=== PATIENT | female | born 1960 | race Caucasian/White ===

== ENCOUNTER 2017-07-24 01:21 | Emergency (ER) | payer MEDICAID, SELFPAY | END 2017-07-24 03:35 | disposition home or self-care (01) | PROVIDERS: Emergency Provider Emergency Medicine; Visit Provider Emergency Medicine | DX: J40 Bronchitis, not specified as acute or chronic (principal); J44.9 Chronic obstructive pulmonary disease, unspecified; I10 Essential (primary) hypertension; F17.210 Nicotine dependence, cigarettes, uncomplicated; F31.9 Bipolar disorder, unspecified; Z79.899 Other long term (current) drug therapy; Z88.0 Allergy status to penicillin; Z88.2 Allergy status to sulfonamides; Z88.8 Allergy status to other drugs, medicaments and biological substances | CPT/HCPCS: 71020; 80053; 82550; 82553; 83605; 83880; 84484; 85025; 87040; 87070; 87077; 87184; 87186; 87205; 87486; 87581; 87633; 87798; 94640; 96374; 96375; 99285 ==

== ENCOUNTER 2017-07-24 15:31 | Emergency (ER) | payer MEDICAID, SELFPAY | END 2017-07-24 16:46 | disposition home or self-care (01) | PROVIDERS: Emergency Provider Emergency Medicine; Family Provider Emergency Medicine; Visit Provider Emergency Medicine | DX: S92.355A Nondisplaced fracture of fifth metatarsal bone, left foot, initial encounter for closed fracture (principal); W19.XXXA Unspecified fall, initial encounter; Y93.9 Activity, unspecified; Y92.9 Unspecified place or not applicable; I10 Essential (primary) hypertension; J44.9 Chronic obstructive pulmonary disease, unspecified; F31.9 Bipolar disorder, unspecified; Z79.891 Long term (current) use of opiate analgesic; Z79.899 Other long term (current) drug therapy | CPT/HCPCS: 29515; 73630; 99284 ==

== ENCOUNTER → 2017-09-20 09:53 | Outpatient (REF) | payer MEDICAID, SELFPAY ==
[2017-09-20 14:02] LABS: Amphetamine/Metha Screen,Urine Negative ng/mL (<1000); Barbiturates Screen,Urine Negative ng/mL (<200); Benzodiazepines Screen,Urine Negative ng/mL (200); Cannabinoid Screen,Urine Negative ng/mL (<50); Cocaine Screen,Urine Negative ng/g (<300); Methadone Screen,Urine Negative ng/mL (<300); Opiate Screen,Urine Positive ng/mL (<300); Phencyclidine Screen,Urine Negative ng/mL (<25)
== END ==
LOC: LAB 09:53
PROVIDERS: Visit Provider Emergency Medicine
DX: Z79.899 Other long term (current) drug therapy (principal)
CPT/HCPCS: 80305

== ENCOUNTER → 2017-09-24 10:33 | Outpatient (CLI) | payer MEDICAID, SELFPAY ==
[2017-09-24 10:53] LABS: Basophils % 0.2 % (0.1-2.0); Eosinophils # 0.2 K/mm3 (0.0-0.4); Eosinophils % 1.6 % (0.1-12.0); Hematocrit 40.1 % (37.0-47.0); Hemoglobin 12.6 g/dL (12.2-16.2); Lymphocytes # 2.1 K/mm3 (0.7-4.5); Lymphocytes % 23.5 K/mm3 (10-50); Mean Corpuscular HGB Conc 31.3 g/dL (31.8-35.4); Mean Corpuscular Hemoglobin 31.6 pg (27.0-31.2); Mean Corpuscular Volume 101.1 fl (81-99); Mean Platelet Volume 7.5 fl (7.4-10.4); Monocytes # 0.3 K/mm3 (0.1-1.0); Monocytes % 3.4 % (1.7-9.3); Neutrophils # 6.5 K/mm3 (1.8-7.8); Neutrophils % 71.4 % (37.0-80.0); Platelet Count 210 K/mm3 (142-424); Red Blood Count 3.97 M/mm3 (4.20-5.40); Red Cell Distribution Width 12.9 % (11.5-17.5); White Blood Count 9.1 K/mm3 (4.8-10.8)
[2017-09-24 11:12] LABS: Hemoglobin A1C 5.2 % (0.0-7.0)
[2017-09-24 15:08] LABS: Alanine Aminotransferase 33 U/L (12-78); Albumin Level 3.5 gm/dL (3.4-5.0); Albumin/Globulin Ratio 1.1 (1.1-1.8); Alkaline Phosphatase 87 U/L (46-116); Aspartate Amino Transferase 12 U/L (15-37); Bilirubin,Total 0.3 mg/dL (0.2-1.0); Blood Urea Nitrogen 13 mg/dL (7-18); Calcium 9.2 mg/dL (8.5-10.1); Carbon Dioxide 39 mmol/L (21.0-32.0); Chloride 92 mmol/L (98-107); Creatinine,Serum 0.41 mg/dL (0.55-1.02); Estimated Glomerular Filt Rate 160 ml/min (>60); Free T4 (Free Thyroxine) 0.91 ng/dl (0.76-1.46); GFR (African American) 193 ML/MIN (>60); Globulin 3.3 gm/dl (1.3-3.2); Glucose 119 mg/dL (74-106); Sodium 134 mmol/L (136-145); Thyroid Stimulating Hormone 1.11 uIU/ml (0.358-3.740); Total Protein,Serum 6.8 gm/dL (6.4-8.2)
[2017-09-28 06:35] LABS: Vitamin D 25 Hydroxy 16.2 ng/mL (30.0-100.0)
== END ==
PROVIDERS: PCP Emergency Medicine; Visit Provider Emergency Medicine
DX: R53.83 Other fatigue (principal); R55 Syncope and collapse; Z79.899 Other long term (current) drug therapy
CPT/HCPCS: 36415; 80053; 82652; 83036; 84439; 84443; 85025

== ENCOUNTER → 2017-10-03 10:31 | Outpatient (CLI) | payer MEDICAID, SELFPAY ==
--- NOTE | 2017-10-03 10:35 | CI_ITS ---
Cerebrovascular Exam Indications: 780.4 Dizziness and giddiness. IMPRESSIONS 1. The bilateral vertebral arteries are patent with normal antegrade flow. 2. Study suggests less than 20% stenosis involving the right internal carotid artery and the left internal carotid artery. No change from the study of 02-Sep-2016. Carotid duplex study. Complete study and Doppler flow study including spectral analysis, color and burk scale imaging. Height: Height: 162.6cm. Height: 64in. Weight: Weight: 104.3kg. Weight: 229.5lb. Body mass index: BMI: 39.5kg/m^2. Body surface area: BSA: 2.22m^2. Location: Vascular laboratory. Patient status: Outpatient. Tables: Arterial flow: + +--------+--------+ Location V sys V ed + +--------+--------+ Right CCA - proximal 114cm/s 26.7cm/s + +--------+--------+ Right CCA - distal 80.9cm/s 22.8cm/s + +--------+--------+ Right ECA 69.9cm/s -------- + +--------+--------+ Right ICA - proximal 88.8cm/s 19.6cm/s + +--------+--------+ Right ICA - mid 68.4cm/s 20.4cm/s + +--------+--------+ Right ICA - distal 91.1cm/s 32.2cm/s + +--------+--------+ Right vertebral 45.6cm/s -------- + +--------+--------+ Left CCA - proximal 91.1cm/s 17.3cm/s + +--------+--------+ Left CCA - distal 95.9cm/s 31.4cm/s + +--------+--------+ Left ECA 112cm/s -------- + +--------+--------+ Left ICA - proximal 111cm/s 31.4cm/s + +--------+--------+ Left ICA - mid 104cm/s 31.4cm/s + +--------+--------+ Left ICA - distal 144cm/s 50.3cm/s + +--------+--------+ Left vertebral 53.4cm/s -------- + +--------+--------+ Velocity ratios: + + + + + + Right, V sys Right, V ed Left, V sys Left, V ed + + + + + + Max ICA/dist CCA 1.13 1.41 1.5 1.6 + + + + + + (Report amended ) Electronically signed by: Skinny Harry [id number]
== END ==
PROVIDERS: Family Provider Emergency Medicine; PCP Emergency Medicine; Visit Provider Emergency Medicine
DX: R55 Syncope and collapse (principal); R53.83 Other fatigue; Z79.899 Other long term (current) drug therapy
CPT/HCPCS: 93880

== ENCOUNTER → 2017-10-18 11:18 | Outpatient (REF) | payer MEDICAID, SELFPAY ==
[2017-10-18 14:08] LABS: Amphetamine/Metha Screen,Urine Negative ng/mL (<1000); Barbiturates Screen,Urine Negative ng/mL (<200); Benzodiazepines Screen,Urine Negative ng/mL (200); Cannabinoid Screen,Urine Negative ng/mL (<50); Cocaine Screen,Urine Negative ng/g (<300); Methadone Screen,Urine Negative ng/mL (<300); Opiate Screen,Urine Positive ng/mL (<300); Phencyclidine Screen,Urine Negative ng/mL (<25)
== END ==
LOC: LAB 11:18
PROVIDERS: Visit Provider Emergency Medicine
DX: Z79.899 Other long term (current) drug therapy (principal)
CPT/HCPCS: 80305

== ENCOUNTER → 2017-11-16 09:59 | Outpatient (REF) | payer MEDICAID, SELFPAY ==
[2017-11-16 13:40] LABS: Amphetamine/Metha Screen,Urine Negative ng/mL (<1000); Barbiturates Screen,Urine Negative ng/mL (<200); Benzodiazepines Screen,Urine Negative ng/mL (200); Cannabinoid Screen,Urine Negative ng/mL (<50); Cocaine Screen,Urine Negative ng/g (<300); Methadone Screen,Urine Negative ng/mL (<300); Opiate Screen,Urine Positive ng/mL (<300); Phencyclidine Screen,Urine Negative ng/mL (<25)
== END ==
LOC: LAB 09:59
PROVIDERS: Visit Provider Emergency Medicine
DX: Z79.899 Other long term (current) drug therapy (principal)
CPT/HCPCS: 80305

== ENCOUNTER → 2017-12-12 09:03 | Outpatient (REF) | payer MEDICAID, SELFPAY ==
[2017-12-12 14:49] LABS: Amphetamine/Metha Screen,Urine Negative ng/mL (<1000); Barbiturates Screen,Urine Negative ng/mL (<200); Benzodiazepines Screen,Urine Negative ng/mL (200); Cannabinoid Screen,Urine Negative ng/mL (<50); Cocaine Screen,Urine Negative ng/g (<300); Methadone Screen,Urine Negative ng/mL (<300); Opiate Screen,Urine Positive ng/mL (<300); Phencyclidine Screen,Urine Negative ng/mL (<25)
== END ==
LOC: LAB 09:03
PROVIDERS: Visit Provider Emergency Medicine
DX: Z79.899 Other long term (current) drug therapy (principal)
CPT/HCPCS: 80305

== ENCOUNTER → 2018-01-16 15:44 | Outpatient (REF) | payer MEDICAID, SELFPAY ==
[2018-01-16 18:58] LABS: Amphetamine/Metha Screen,Urine Negative ng/mL (<1000); Barbiturates Screen,Urine Negative ng/mL (<200); Benzodiazepines Screen,Urine Negative ng/mL (200); Cannabinoid Screen,Urine Negative ng/mL (<50); Cocaine Screen,Urine Negative ng/g (<300); Methadone Screen,Urine Negative ng/mL (<300); Opiate Screen,Urine Positive ng/mL (<300); Phencyclidine Screen,Urine Negative ng/mL (<25)
== END ==
LOC: LAB 15:44
PROVIDERS: Visit Provider Emergency Medicine
DX: Z79.899 Other long term (current) drug therapy (principal)
CPT/HCPCS: 80305

== ENCOUNTER → 2018-02-14 10:05 | Outpatient (REF) | payer MEDICAID, SELFPAY ==
[2018-02-14 13:55] LABS: Amphetamine/Metha Screen,Urine Negative ng/mL (<1000); Barbiturates Screen,Urine Negative ng/mL (<200); Benzodiazepines Screen,Urine Negative ng/mL (<200); Cannabinoid Screen,Urine Negative ng/mL (<50); Cocaine Screen,Urine Negative ng/mL (<300); Methadone Screen,Urine Negative ng/mL (<300); Opiate Screen,Urine Positive ng/mL (<300); Phencyclidine Screen,Urine Negative ng/mL (<25)
== END ==
LOC: LAB 10:05
PROVIDERS: Visit Provider Emergency Medicine
DX: Z79.899 Other long term (current) drug therapy (principal)
CPT/HCPCS: 80305

== ENCOUNTER → 2018-03-17 09:02 | Outpatient (REF) | payer MEDICAID, SELFPAY ==
[2018-03-17 14:13] LABS: Amphetamine/Metha Screen,Urine Negative ng/mL (<1000); Barbiturates Screen,Urine Negative ng/mL (<200); Benzodiazepines Screen,Urine Negative ng/mL (<200); Cannabinoid Screen,Urine Negative ng/mL (<50); Cocaine Screen,Urine Negative ng/mL (<300); Methadone Screen,Urine Negative ng/mL (<300); Opiate Screen,Urine Positive ng/mL (<300); Phencyclidine Screen,Urine Negative ng/mL (<25)
== END ==
LOC: LAB 09:02
PROVIDERS: Visit Provider Emergency Medicine
DX: M51.36 Other intervertebral disc degeneration, lumbar region (principal)
CPT/HCPCS: 80305

== ENCOUNTER → 2018-04-17 09:15 | Outpatient (REF) | payer MEDICAID, SELFPAY ==
[2018-04-17 15:52] LABS: Amphetamine/Metha Screen,Urine Negative ng/mL (<1000); Barbiturates Screen,Urine Negative ng/mL (<200); Benzodiazepines Screen,Urine Negative ng/mL (<200); Cannabinoid Screen,Urine Negative ng/mL (<50); Cocaine Screen,Urine Negative ng/mL (<300); Methadone Screen,Urine Negative ng/mL (<300); Opiate Screen,Urine Positive ng/mL (<300); Phencyclidine Screen,Urine Negative ng/mL (<25)
== END ==
LOC: LAB 09:15
PROVIDERS: Visit Provider Nurse Practitioner Family
DX: Z79.899 Other long term (current) drug therapy (principal)
CPT/HCPCS: 80305

== ENCOUNTER → 2018-05-17 09:10 | Outpatient (REF) | payer MEDICAID, SELFPAY ==
[2018-05-17 14:24] LABS: Amphetamine/Metha Screen,Urine Negative ng/mL (<1000); Barbiturates Screen,Urine Negative ng/mL (<200); Benzodiazepines Screen,Urine Negative ng/mL (<200); Cannabinoid Screen,Urine Negative ng/mL (<50); Cocaine Screen,Urine Negative ng/mL (<300); Methadone Screen,Urine Negative ng/mL (<300); Opiate Screen,Urine Positive ng/mL (<300); Phencyclidine Screen,Urine Negative ng/mL (<25)
== END ==
LOC: LAB 09:10
PROVIDERS: Visit Provider Emergency Medicine
DX: Z79.899 Other long term (current) drug therapy (principal)
CPT/HCPCS: 80305

== ENCOUNTER → 2018-06-15 19:00 | Outpatient (CLI) | payer MEDICAID, SELFPAY ==
[2018-06-15 19:39] LABS: Amphetamine/Metha Screen,Urine Negative ng/mL (<1000); Barbiturates Screen,Urine Negative ng/mL (<200); Benzodiazepines Screen,Urine Negative ng/mL (<200); Cannabinoid Screen,Urine Negative ng/mL (<50); Cocaine Screen,Urine Negative ng/mL (<300); Methadone Screen,Urine Negative ng/mL (<300); Opiate Screen,Urine Positive ng/mL (<300); Phencyclidine Screen,Urine Negative ng/mL (<25)
== END ==
PROVIDERS: Visit Provider Emergency Medicine
DX: Z79.899 Other long term (current) drug therapy (principal)
CPT/HCPCS: 80305

== ENCOUNTER → 2018-07-12 13:41 | Outpatient (CLI) | payer MEDICAID, SELFPAY ==
[2018-07-12 15:18] LABS: Amphetamine/Metha Screen,Urine Negative ng/mL (<1000); Barbiturates Screen,Urine Negative ng/mL (<200); Benzodiazepines Screen,Urine Negative ng/mL (<200); Cannabinoid Screen,Urine Negative ng/mL (<50); Cocaine Screen,Urine Negative ng/mL (<300); Methadone Screen,Urine Negative ng/mL (<300); Opiate Screen,Urine Positive ng/mL (<300); Phencyclidine Screen,Urine Negative ng/mL (<25)
== END ==
PROVIDERS: Visit Provider Emergency Medicine
DX: Z79.899 Other long term (current) drug therapy (principal)
CPT/HCPCS: 80305

== ENCOUNTER → 2018-07-13 08:34 | Outpatient (CLI) | payer MEDICAID, SELFPAY ==
[2018-07-13 08:54] LABS: Basophils % 0.1 % (0.1-2.0); Eosinophils # 0.1 K/mm3 (0.0-0.4); Hematocrit 34.8 % (37.0-47.0); Hemoglobin 10.7 g/dL (12.2-16.2); Lymphocytes # 1.8 K/mm3 (0.7-4.5); Lymphocytes % 22.2 % (10-50); Mean Corpuscular HGB Conc 30.8 g/dL (31.8-35.4); Mean Corpuscular Hemoglobin 31.4 pg (27.0-31.2); Mean Corpuscular Volume 101.8 fl (81-99); Mean Platelet Volume 6.6 fl (7.4-10.4); Monocytes # 0.4 K/mm3 (0.1-1.0); Monocytes % 4.4 % (1.7-9.3); Neutrophils # 5.9 K/mm3 (1.8-7.8); Neutrophils % 72.3 % (37.0-80.0); Platelet Count 267 K/mm3 (142-424); Red Blood Count 3.42 M/mm3 (4.20-5.40); Red Cell Distribution Width 13.8 % (11.5-17.5); White Blood Count 8.2 K/mm3 (4.8-10.8)
[2018-07-13 09:33] LABS: Alanine Aminotransferase 49 U/L (12-78); Albumin Level 3.4 gm/dL (3.4-5.0); Alkaline Phosphatase 81 U/L (46-116); Aspartate Amino Transferase 25 U/L (15-37); Bilirubin,Total 0.3 mg/dL (0.2-1.0); Blood Urea Nitrogen 9 mg/dL (7-18); Calcium 8.9 mg/dL (8.5-10.1); Carbon Dioxide 33 mmol/L (21.0-32.0); Chloride 96 mmol/L (98-107); Cholesterol 268 mg/dL (140-200); Creatinine,Serum 0.66 mg/dL (0.55-1.02); Estimated Glomerular Filt Rate 92 ml/min (>60); Free T4 (Free Thyroxine) 1.02 ng/dl (0.76-1.46); GFR (African American) 111 ML/MIN (>60); Globulin 3.3 gm/dl (1.3-3.2); Glucose 99 mg/dL (74-106); HDL Cholesterol 90 mg/dL (29-89); LDL Cholesterol 141 mg/dL (0-130); Sodium 138 mmol/L (136-145); Thyroid Stimulating Hormone 1.84 uIU/ml (0.358-3.740); Total Protein,Serum 6.7 gm/dL (6.4-8.2); Triglycerides 183 mg/dL (30-200); VLDL Cholesterol 37 mg/dL (0-40)
== END ==
PROVIDERS: Visit Provider Emergency Medicine
DX: I10 Essential (primary) hypertension (principal)
CPT/HCPCS: 36415; 80053; 80061; 84439; 84443; 85025

== ENCOUNTER → 2018-07-14 12:06 | Outpatient (CLI) | payer MEDICAID, SELFPAY | PROVIDERS: PCP Emergency Medicine; Visit Provider Emergency Medicine | DX: I10 Essential (primary) hypertension (principal) | CPT/HCPCS: 36415 ==

== ENCOUNTER → 2018-07-20 09:49 | Outpatient (CLI) | payer MEDICAID, SELFPAY ==
[2018-07-20 10:18] VITALS: PULSE 82
== END ==
PROVIDERS: PCP Emergency Medicine; Visit Provider Emergency Medicine
DX: R06.02 Shortness of breath (principal)
CPT/HCPCS: 94060; 94640

== ENCOUNTER → 2018-08-10 07:06 | Outpatient (CLI) | payer MEDICAID, SELFPAY ==
[2018-08-10 08:20] LABS: Basophils % 0.2 % (0.1-2.0); Eosinophils # 0.1 K/mm3 (0.0-0.4); Hematocrit 35.6 % (37.0-47.0); Hemoglobin 10.9 g/dL (12.2-16.2); Lymphocytes # 1.7 K/mm3 (0.7-4.5); Lymphocytes % 22.4 % (10-50); Mean Corpuscular HGB Conc 30.6 g/dL (31.8-35.4); Mean Corpuscular Hemoglobin 31.1 pg (27.0-31.2); Mean Corpuscular Volume 101.4 fl (81-99); Mean Platelet Volume 6.8 fl (7.4-10.4); Monocytes # 0.4 K/mm3 (0.1-1.0); Monocytes % 5.2 % (1.7-9.3); Neutrophils # 5.5 K/mm3 (1.8-7.8); Neutrophils % 71.2 % (37.0-80.0); Platelet Count 237 K/mm3 (142-424); Red Blood Count 3.51 M/mm3 (4.20-5.40); White Blood Count 7.7 K/mm3 (4.8-10.8)
[2018-08-10 09:37] LABS: Alanine Aminotransferase 60 U/L (12-78); Albumin Level 3.4 gm/dL (3.4-5.0); Alkaline Phosphatase 86 U/L (46-116); Anion Gap 8.7 mEq/L (5-15); Aspartate Amino Transferase 35 U/L (15-37); Bilirubin,Total 0.4 mg/dL (0.2-1.0); Blood Urea Nitrogen 14 mg/dL (7-18); Calcium 8.9 mg/dL (8.5-10.1); Carbon Dioxide 36 mmol/L (21.0-32.0); Chloride 97 mmol/L (98-107); Chol/HDL Ratio 2.2 (1-3.5); Cholesterol 188 mg/dL (140-200); Creatinine,Serum 0.62 mg/dL (0.55-1.02); Estimated Glomerular Filt Rate 99 ml/min (>60); Ferritin 196 ng/mL (8-388); GFR (African American) 120 ML/MIN (>60); Globulin 3.3 gm/dl (1.3-3.2); Glucose 105 mg/dL (74-106); HDL Cholesterol 87 mg/dL (29-89); Iron 147 ug/dl (28-170); LDL Cholesterol 77 mg/dL (0-130); Magnesium 1.9 mg/dL (1.4-2.2); Phosphorous 4.1 mg/dL (2.4-4.9); Potassium 4.7 mmoL/L (3.5-5.1); Sodium 137 mmol/L (136-145); Thyroid Stimulating Hormone 1.28 uIU/ml (0.358-3.740); Total Protein,Serum 6.7 gm/dL (6.4-8.2); Triglycerides 119 mg/dL (30-200); VLDL Cholesterol 24 mg/dL (0-40)
[2018-08-12 11:10] LABS: Methylmalonic Acid 514 nmol/L (0-378)
[2018-08-12 18:07] LABS: Vitamin E Alpha Tocopherol 8.5 mg/L (7.0-25.1)
[2018-08-12 21:47] LABS: Folate 18.4 ng/mL (>3.0); Parathyroid Hormone Intact 46 pg/mL (15-65); Prealbumin 40 mg/dL (10-36)
[2018-08-12 21:48] LABS: Vitamin D 25 Hydroxy 41.1 ng/mL (30.0-100.0)
[2018-08-12 21:52] LABS: Vitamin A 78.7 ug/dL (20.1-62.0); Vitamin B1 100.4 nmol/L (66.5-200.0); Vitamin E Gamma Tocopherol 2.8 mg/L (0.5-5.5)
[2018-08-16 10:31] LABS: Cotinine 778.1 ng/mL (.); Nicotine 504.4 ng/mL (.)
== END ==
PROVIDERS: Visit Provider Physician Assistant
DX: I10 Essential (primary) hypertension (principal); R12 Heartburn; M54.9 Dorsalgia, unspecified; E66.01 Morbid (severe) obesity due to excess calories; Z72.0 Tobacco use
CPT/HCPCS: 36415; 80053; 80061; 80323; 82131; 82652; 82728; 82746; 83036; 83540; 83735; 83970; 84100; 84134; 84425; 84443; 84446; 84590; 85025; G0480

== ENCOUNTER → 2018-08-14 13:46 | Outpatient (CLI) | payer MEDICAID, SELFPAY ==
[2018-08-14 18:58] LABS: Amphetamine/Metha Screen,Urine Negative ng/mL (<1000); Barbiturates Screen,Urine Negative ng/mL (<200); Benzodiazepines Screen,Urine Negative ng/mL (<200); Cannabinoid Screen,Urine Negative ng/mL (<50); Cocaine Screen,Urine Negative ng/mL (<300); Methadone Screen,Urine Negative ng/mL (<300); Opiate Screen,Urine Positive ng/mL (<300); Phencyclidine Screen,Urine Negative ng/mL (<25)
== END ==
PROVIDERS: Visit Provider Emergency Medicine
DX: Z79.899 Other long term (current) drug therapy (principal)
CPT/HCPCS: 80305

== ENCOUNTER → 2018-09-05 10:14 | Outpatient (CLI) | payer MEDICAID, SELFPAY ==
--- NOTE | 2018-09-05 10:17 | XR_ITS ---
XR ankle wt bearing LT min 3V HISTORY: ITS.REASON: pain ORDERING PHYSICIAN: Vera Blancas DPM PATIENT AGE: 57 years Comparison: None FINDINGS: No fracture or dislocation. No lytic or blastic change. There is normal mineralization.. The joint spaces are well-preserved. No significant degenerative/arthritic changes. No erosive changes evident. IMPRESSION: Negative ankle, no acute finding
== END ==
PROVIDERS: PCP Emergency Medicine; Visit Provider Podiatrist
DX: M25.572 Pain in left ankle and joints of left foot (principal)
CPT/HCPCS: 73610

== ENCOUNTER → 2018-10-10 09:44 | Outpatient (CLI) | payer MEDICAID, SELFPAY ==
--- NOTE | 2018-10-10 09:47 | FL_ITS ---
FL upper GI w air HISTORY: ITS.REASON: PYLORIC ANTRAL STENEOSIS ORDERING PHYSICIAN: Sadiq Gardner PATIENT AGE: 57 years Comparison: None FINDINGS: The esophagus, stomach, and duodenum have an unremarkable appearance. There is no evidence of hiatal hernia. No ulcer or mass evident. No mucosal abnormalities apparent. There is normal peristalsis. The duodenal C-loop is nondisplaced. FLUOROSCOPY TIME : 1 minute and 15 seconds. IMPRESSION: Negative upper GI
--- NOTE | 2018-10-10 09:48 | XR_ITS ---
XR KUB HISTORY: ITS.REASON: PYLORIC ANTRAL STENOSIS ORDERING PHYSICIAN: Sadiq Gardner PATIENT AGE: 57 years COMPARISON: None FINDINGS: The bowel gas pattern is unremarkable. No obvious obstruction.. No abnormal calcifications are evident. No obvious renal or ureteral calculi.. No acute bony anomalies evident. There are multiple pelvic phleboliths. There is an old right seventh rib fracture IMPRESSION: Negative KUB, no acute finding
== END ==
PROVIDERS: PCP Emergency Medicine; Visit Provider Surgery
DX: K31.2 Hourglass stricture and stenosis of stomach (principal)
CPT/HCPCS: 74018; 74247

== ENCOUNTER → 2018-10-11 13:56 | Outpatient (CLI) | payer MEDICAID, SELFPAY ==
[2018-10-11 15:03] LABS: Amphetamine/Metha Screen,Urine Negative ng/mL (<1000); Barbiturates Screen,Urine Negative ng/mL (<200); Benzodiazepines Screen,Urine Negative ng/mL (<200); Cannabinoid Screen,Urine Negative ng/mL (<50); Cocaine Screen,Urine Negative ng/mL (<300); Methadone Screen,Urine Negative ng/mL (<300); Opiate Screen,Urine Positive ng/mL (<300); Phencyclidine Screen,Urine Negative ng/mL (<25)
== END ==
PROVIDERS: Visit Provider Emergency Medicine
DX: Z79.899 Other long term (current) drug therapy (principal)
CPT/HCPCS: 80305

== ENCOUNTER → 2018-10-30 10:18 | Outpatient (CLI) | payer MEDICAID, SELFPAY ==
--- NOTE | 2018-10-30 10:46 | XR_ITS ---
XR chest 2V HISTORY: ITS.REASON: CAD ORDERING PHYSICIAN: Rose Mary Segovia PATIENT AGE: 57 years COMPARISON: 07/24/2017 FINDINGS: There is mild cardiomegaly without failure. No lobar consolidation or collapse is evident. There are old bilateral rib fractures with minimal atelectatic change in the right lung but. There is faint opacity in the right CP angle which could be due to an area of atelectasis or fibrosis or developing infiltrate or nodule. Follow-up is recommended to confirm stability or resolution. No acute bony findings. IMPRESSION: Cardiomegaly without failure with faint opacity in the right CP angle which could be due to an area of atelectasis, fibrosis, developing nodule, or minimal infiltrate. Recommend follow-up to confirm resolution.
[2018-10-30 11:19] LABS: Amphetamine/Metha Screen,Urine Negative ng/mL (<1000); Barbiturates Screen,Urine Negative ng/mL (<200); Benzodiazepines Screen,Urine Negative ng/mL (<200); Cannabinoid Screen,Urine Negative ng/mL (<50); Cocaine Screen,Urine Negative ng/mL (<300); Methadone Screen,Urine Negative ng/mL (<300); Opiate Screen,Urine Negative ng/mL (<300); Phencyclidine Screen,Urine Negative ng/mL (<25)
[2018-11-07 06:59] LABS: Cotinine None Detected (.); Nicotine None Detected (.)
== END ==
PROVIDERS: PCP Emergency Medicine; Visit Provider Physician Assistant
DX: I10 Essential (primary) hypertension (principal); R12 Heartburn; M54.9 Dorsalgia, unspecified; Z72.0 Tobacco use; E66.01 Morbid (severe) obesity due to excess calories
CPT/HCPCS: 71046; 80305; 80323; 93005; G0480

== ENCOUNTER → 2018-11-17 07:37 | Outpatient (CLI) | payer MEDICAID, SELFPAY ==
--- NOTE | 2018-11-17 07:39 | CT_ITS ---
CT chest wo con HISTORY: Preoperative evaluation for bariatric surgery, abnormal chest x-ray ITS.REASON: abn cxr ORDERING PHYSICIAN: Samantha Hare PATIENT AGE: 57 years COMPARISON: 09/02/2016 Technique: Axial images obtained following the administration of 75 mL of Optiray 350 . Sagittal, and coronal reformatted images are also generated and reviewed. All CT scans at the facility use one or more dose reduction, viz: automated exposure control, ma/kV adjustment per patient size (including targeted exams where dose is matched to indication, i.e. head), or iterative reconstruction technique. FINDINGS: No mediastinal or hilar mass or enlarged lymph nodes are evident. There are scattered small lymph nodes which are nonspecific and not significant changed. Normal heart size. No evidence of aortic aneurysm. There are mild atelectatic/fibrotic changes in the right middle lobe. There are old fractures of the right fifth, sixth, and seventh ribs which may have contributed to the radiographic abnormality in the right CP angle as fractures are lateral. No suspicious nodules are evident. There are calcified granuloma in the right lower lobe posteriorly. Atelectatic or fibrotic changes are present within the lingula. Old left-sided rib fractures are also noted. There are mild fibrotic changes in the left upper lobe medially. Upper abdominal images are unremarkable. The right kidney is not visualized in the upper abdomen. IMPRESSION: 1. No acute finding. No convincing evidence of suspicious nodules. The opacity in the right CP angle may be due to overlying rib fractures and fibrotic change. 2. Old bilateral rib fractures
== END ==
PROVIDERS: PCP Nurse Practitioner Family; Visit Provider Nurse Practitioner Family
DX: R91.8 Other nonspecific abnormal finding of lung field (principal); J44.9 Chronic obstructive pulmonary disease, unspecified; R06.02 Shortness of breath
CPT/HCPCS: 71250

== ENCOUNTER → 2018-12-11 14:00 | Outpatient (CLI) | payer MEDICAID, SELFPAY ==
[2018-12-11 14:26] LABS: Amphetamine/Metha Screen,Urine Negative ng/mL (<1000); Barbiturates Screen,Urine Negative ng/mL (<200); Benzodiazepines Screen,Urine Negative ng/mL (<200); Cannabinoid Screen,Urine Negative ng/mL (<50); Cocaine Screen,Urine Negative ng/mL (<300); Methadone Screen,Urine Negative ng/mL (<300); Opiate Screen,Urine Positive ng/mL (<300); Phencyclidine Screen,Urine Negative ng/mL (<25)
== END ==
PROVIDERS: Visit Provider Emergency Medicine
DX: Z79.899 Other long term (current) drug therapy (principal)
CPT/HCPCS: 80305

== ENCOUNTER → 2019-01-12 13:43 | Outpatient (CLI) | payer MEDICAID, SELFPAY ==
[2019-01-12 14:30] LABS: Basophils % 0.2 % (0.1-2.0); Eosinophils # 0.1 K/mm3 (0.0-0.4); Eosinophils % 1.2 % (0.1-12.0); Hematocrit 30.3 % (37.0-47.0); Hemoglobin 9.5 g/dL (12.2-16.2); Lymphocytes # 2.3 K/mm3 (0.7-4.5); Mean Corpuscular HGB Conc 31.2 g/dL (31.8-35.4); Mean Corpuscular Volume 89.7 fl (81-99); Mean Platelet Volume 6.8 fl (7.4-10.4); Monocytes # 0.5 K/mm3 (0.1-1.0); Monocytes % 5.1 % (1.7-9.3); Neutrophils # 5.9 K/mm3 (1.8-7.8); Neutrophils % 67.5 % (37.0-80.0); Platelet Count 254 K/mm3 (142-424); Red Blood Count 3.38 M/mm3 (4.20-5.40); Red Cell Distribution Width 13.8 % (11.5-17.5); White Blood Count 8.8 K/mm3 (4.8-10.8)
[2019-01-12 16:31] LABS: Alanine Aminotransferase 36 U/L (12-78); Albumin Level 3.5 gm/dL (3.4-5.0); Albumin/Globulin Ratio 1.2 (1.1-1.8); Alkaline Phosphatase 95 U/L (46-116); Anion Gap 13.5 mEq/L (5-15); Aspartate Amino Transferase 19 U/L (15-37); Bilirubin,Total 0.4 mg/dL (0.2-1.0); Blood Urea Nitrogen 19 mg/dL (7-18); Calcium 8.7 mg/dL (8.5-10.1); Carbon Dioxide 32 mmol/L (21.0-32.0); Chloride 94 mmol/L (98-107); Chol/HDL Ratio 2.5 (1-3.5); Cholesterol 148 mg/dL (140-200); Creatinine,Serum 0.78 mg/dL (0.55-1.02); Estimated Glomerular Filt Rate 76 ml/min (>60); Ferritin 235 ng/mL (8-388); GFR (African American) 91 ML/MIN (>60); Glucose 80 mg/dL (74-106); HDL Cholesterol 60 mg/dL (29-89); Iron 73 ug/dl (28-170); LDL Cholesterol 71 mg/dL (0-130); Magnesium 1.7 mg/dL (1.4-2.2); Phosphorous 4.3 mg/dL (2.4-4.9); Potassium 4.5 mmoL/L (3.5-5.1); Sodium 135 mmol/L (136-145); Thyroid Stimulating Hormone 1.21 uIU/ml (0.358-3.740); Total Protein,Serum 6.5 gm/dL (6.4-8.2); Triglycerides 85 mg/dL (30-200); VLDL Cholesterol 17 mg/dL (0-40)
[2019-01-12 18:35] LABS: Hemoglobin A1C 5.5 % (0.0-7.0)
[2019-01-14 15:58] LABS: Folate 13.6 ng/mL (>3.0); Prealbumin 25 mg/dL (10-36)
[2019-01-16 19:53] LABS: Parathyroid Hormone Intact 32 pg/mL (15-65); Vitamin B1 108.7 nmol/L (66.5-200.0)
[2019-01-16 19:54] LABS: Vitamin D 25 Hydroxy 52.4 ng/mL (30.0-100.0)
[2019-01-17 13:20] LABS: Methylmalonic Acid 305 nmol/L (0-378)
[2019-01-18 08:56] LABS: Vitamin A 52.5 ug/dL (20.1-62.0); Vitamin E Alpha Tocopherol 6.5 mg/L (7.0-25.1); Vitamin E Gamma Tocopherol 1.4 mg/L (0.5-5.5)
== END ==
PROVIDERS: Visit Provider Physician Assistant
DX: I10 Essential (primary) hypertension (principal); Z98.84 Bariatric surgery status
CPT/HCPCS: 36415; 80053; 80061; 82131; 82652; 82728; 82746; 83036; 83540; 83735; 83970; 84100; 84134; 84425; 84443; 84446; 84590; 85025

== ENCOUNTER → 2019-02-06 13:03 | Outpatient (POV) | payer MEDICAID, SELFPAY | PROVIDERS: Visit Provider Internal Medicine | DX: Z00.00 Encounter for general adult medical examination without abnormal findings (principal) ==

== ENCOUNTER → 2019-02-07 14:56 | Outpatient (CLI) | payer MEDICAID, SELFPAY ==
[2019-02-07 16:13] LABS: Amphetamine/Metha Screen,Urine Negative ng/mL (<1000); Barbiturates Screen,Urine Negative ng/mL (<200); Benzodiazepines Screen,Urine Negative ng/mL (<200); Cannabinoid Screen,Urine Negative ng/mL (<50); Cocaine Screen,Urine Negative ng/mL (<300); Methadone Screen,Urine Negative ng/mL (<300); Opiate Screen,Urine Positive ng/mL (<300); Phencyclidine Screen,Urine Negative ng/mL (<25)
== END ==
PROVIDERS: Visit Provider Emergency Medicine
DX: Z79.899 Other long term (current) drug therapy (principal)
CPT/HCPCS: 80305

== ENCOUNTER → 2019-04-06 13:51 | Outpatient (CLI) | payer MEDICAID, SELFPAY ==
[2019-04-06 15:08] LABS: Amphetamine/Metha Screen,Urine Negative ng/mL (<1000); Barbiturates Screen,Urine Negative ng/mL (<200); Benzodiazepines Screen,Urine Negative ng/mL (<200); Cannabinoid Screen,Urine Negative ng/mL (<50); Cocaine Screen,Urine Negative ng/mL (<300); Methadone Screen,Urine Negative ng/mL (<300); Opiate Screen,Urine Positive ng/mL (<300); Phencyclidine Screen,Urine Negative ng/mL (<25)
== END ==
PROVIDERS: Visit Provider Emergency Medicine
DX: Z79.891 Long term (current) use of opiate analgesic (principal)
CPT/HCPCS: 80305

== ENCOUNTER → 2019-06-05 13:36 | Outpatient (CLI) | payer MEDICAID, SELFPAY ==
[2019-06-05 15:12] LABS: Amphetamine/Metha Screen,Urine Negative ng/mL (<1000); Barbiturates Screen,Urine Negative ng/mL (<200); Benzodiazepines Screen,Urine Negative ng/mL (<200); Cannabinoid Screen,Urine Negative ng/mL (<50); Cocaine Screen,Urine Negative ng/mL (<300); Methadone Screen,Urine Negative ng/mL (<300); Opiate Screen,Urine Positive ng/mL (<300); Phencyclidine Screen,Urine Negative ng/mL (<25)
== END ==
PROVIDERS: Visit Provider Emergency Medicine
DX: Z79.899 Other long term (current) drug therapy (principal)
CPT/HCPCS: 80305

== ENCOUNTER → 2019-07-27 13:57 | Outpatient (CLI) | payer MEDICAID, SELFPAY ==
[2019-07-27 16:12] LABS: Amphetamine/Metha Screen,Urine Negative ng/mL (<1000); Barbiturates Screen,Urine Negative ng/mL (<200); Benzodiazepines Screen,Urine Negative ng/mL (<200); Cannabinoid Screen,Urine Negative ng/mL (<50); Cocaine Screen,Urine Negative ng/mL (<300); Methadone Screen,Urine Negative ng/mL (<300); Opiate Screen,Urine Negative ng/mL (<300); Phencyclidine Screen,Urine Negative ng/mL (<25)
[2019-08-06 21:22] LABS: Opiates Negative ng/mL (Cutoff=100)
== END ==
PROVIDERS: Visit Provider Emergency Medicine
DX: G89.29 Other chronic pain (principal); M54.9 Dorsalgia, unspecified; Z79.899 Other long term (current) drug therapy
CPT/HCPCS: 80305; 80361; G0480

== ENCOUNTER → 2019-09-26 14:39 | Outpatient (CLI) | payer MEDICAID, SELFPAY ==
[2019-09-26 15:56] LABS: Amphetamine/Metha Screen,Urine Negative ng/ml (<1000)
[2019-09-26 15:57] LABS: Barbiturates Screen,Urine Negative ng/ml (<200)
[2019-09-26 15:59] LABS: Benzodiazepines Screen,Urine Negative ng/ml (<200); Cannabinoid Screen,Urine Negative ng/ml (<50)
[2019-09-26 16:00] LABS: Cocaine Screen,Urine Negative ng/ml (<300)
[2019-09-26 16:01] LABS: Methadone Screen,Urine Negative ng/ml (<300); Opiate Screen,Urine Positive ng/ml (<300)
[2019-09-26 16:02] LABS: Phencyclidine Screen,Urine Negative ng/ml (<25)
== END ==
PROVIDERS: Visit Provider Emergency Medicine
DX: Z79.899 Other long term (current) drug therapy (principal)
CPT/HCPCS: 80305

== ENCOUNTER 2020-05-31 10:22 | Emergency (ER) | payer MEDICAID, SELFPAY ==
[2020-05-31 10:45] VITALS: BP 118/63; PULSE 76; RESP 14; TEMP 36.8; O2SAT 94; BMI 37.3
--- NOTE | 2020-05-31 12:10 | PC.NURSE ---
pt triage entered at this time after pt d/c r/t downtime procedures.
[2020-05-31 12:13] VITALS: BP 118/63; PULSE 76; RESP 14; TEMP 36.8; O2SAT 94
[2020-05-31 12:22] LABS: Apearance,Urine Cloudy (Clear); Color,Urine Yellow (Yellow)
[2020-05-31 12:23] LABS: Bilirubin,Urine Negative (Negative); Blood, Urine 1+ (Negative); Glucose,Urine (UA) Negative (Negative); Ketones,Urine Negative (Negative); Protein,Urine Negative (Negative); Specific Gravity, Urine 1.015 (1.005-1.030)
[2020-05-31 12:24] LABS: UTC Leukocyte Esterase,Urine 1+ (Negative); UTC Nitrate,Urine Negative (Negative); Urobilinogen,Urine 0.2 EU/dl (0.2)
== END 2020-05-31 12:15 | disposition home or self-care (01) ==
LOC: UTC 11:41
PROVIDERS: Emergency Provider Nurse Practitioner Family; PCP Emergency Medicine
DX: N30.00 Acute cystitis without hematuria (principal); B96.20 Unspecified Escherichia coli [E. coli] as the cause of diseases classified elsewhere
CPT/HCPCS: 81003; 87086; 87088; 87186; 99201

== ENCOUNTER → 2020-07-08 16:04 | Outpatient (CLI) | payer MEDICAID, SELFPAY ==
[2020-07-08 17:28] LABS: Coronavirus 19 IgG Antibody Negative (Negative); Coronavirus 19 IgM Antibody Negative (Negative)
== END ==
PROVIDERS: Visit Provider Surgery
DX: Z01.818 Encounter for other preprocedural examination (principal); Z12.2 Encounter for screening for malignant neoplasm of respiratory organs
CPT/HCPCS: 36415; 86328

== ENCOUNTER 2020-07-10 07:22 | Day surgery (SDC) | payer MEDICAID, SELFPAY ==
[2020-07-08 13:29] VITALS: BMI 37.3
[2020-07-10 07:43] VITALS: BP 135/66; PULSE 61; RESP 18; TEMP 36.5; O2SAT 98
--- NOTE | 2020-07-10 07:45 | P.PN_ITS ---
[facility] Anesthesia Checklist - Patient Identification Patient Identification: Arm Band, Verbal (Name & ) - Structural Data Admitted From: Home Planned Operative Procedure/s: 0000 Consent for Planned Operative Procedure(s) Verified: Yes Verified Documents: History and Physical - NPO Status Verified Time NPO: 00:00 - Chart Verification Results Verified: CBC, BMP - Additional verifications Patient : No Anesthesia Reactions: No Hx Blood Transfusions: No Blood Transfusion Reaction: No Cephalosporin Allergy: No Previous Colonoscopy: Yes - Cardiovascular Assessment Heart Sounds: S1 & S2 Pulse Strength: Baseline Pulse Rhythm: Regular Peripheral Edema: No - Airway Assessment C-Spine Mobility Assessed: Yes TMJ Mobility Assessed: Yes Dentition: Good Dentition - Neurological Assessment Level of Consciousness: Awake, Alert, Appropriate Hx Seizures: No Numbness or tingling in extremities: No - Anesthesia Plan Anesthesia Risk discussed: Yes Anesthesia Plan: Verified ASA Class: III Anesthesia Type: General [facility] History I have reviewed the patient's past medical history: Yes Medical History: Reports:: Anxiety, Chronic Obstructive Pulmonary Disease (COPD), Depression, Gastroesophageal Reflux Disease(GERD), Hyperlipidemia, Hypertension Denies:: Cancer, Diabetes Mellitus Type 1, Diabetes Mellitus Type 2, Internal Pacemaker, MRSA, Seizures *Have you ever received a pneumonia vaccine?: Yes *Have you received a flu vaccine this season?: Yes Other Medical History: Reports: Other. Denies: Blood Transfusion Reaction Anesthesia experience/problems:: none Laterality Cases: Left: Arthroscopy Knee, Right: Breast Biopsy, Lumpectomy Other Surgeries: Yes: No Previous Surgery, Bariatric Surgery, Colonoscopy, C- section, EGD, Other. No: Pacemaker Amputation: No Fractures: Yes - *Social History Smoking Status: Former smoker Tobacco Type: cigarettes # Packs/Day (cigarettes): 0 Alcohol Intake: never Alcohol Intake Frequency:: other Substance Use Type: denies use *Occupational Status:: other Housing: house Household Members: spouse *Travel in the last 8 weeks: None - Psychiatric History Pschychiatric History:: Reports:: Anxiety, Depression Family Hx:: Diabetes, Hyperlipidemia, Heart Attack, Cancer
[2020-07-10 08:06] VITALS: O2SAT 98
[2020-07-10 09:01] VITALS: BP 87/49; PULSE 69; RESP 16; TEMP 36.6; O2SAT 98
--- NOTE | 2020-07-10 09:05 | HMH.SCOPE ---
- Procedure: Date: 07/10/20 Patient Date of :: 1960 Procedure Performed:: Colonoscopy with polypectomy by means other than snare Indications:: History of colon polyps Diverticulosis Hemorrhoids Performing Provider:: Juan M Gonzalez MD Referring Provider:: . Sedation:: Monitored anesthesia care Procedure:: After informed consent was obtained the patient was taken to the endoscopy suite. Sedation ensued after the patient was transferred to the left lateral decubitus position. Pulse, blood pressure, and oxygen saturation were monitored throughout the procedure. Digital rectal exam revealed no significant abnormality. The colonoscope was placed in position. The entire colon was evaluated. The colonoscope was carefully removed and the patient was transferred to recovery in stable condition. Please see findings and specimens below for detail. Findings:: Bowel preparation moderate Hemorrhoidal cushions with no active bleeding or thrombosis Profound lack of relaxation/spasticity Pandiverticulosis Polyps (see specimens) Specimens:: Right colon polyp Hepatic flexure polyp Polyp at 7 cm Recommendations:: Timing of repeat colonoscopy is pending pathology but will likely remain fairly short-term . Consideration of gastroenterology consultation for evaluation regarding possible irritable bowel syndrome (and for repeat colonoscopy within the next 1-2 years) will be ongoing. Complications:: No immediate Estimated blood obtained (mL): 1
[2020-07-10 09:11] VITALS: BP 121/72; PULSE 68; RESP 16; O2SAT 99
[2020-07-10 09:21] VITALS: BP 117/56; PULSE 72; RESP 16; O2SAT 99
[2020-07-10 09:30] VITALS: BP 114/55; PULSE 71; RESP 16; O2SAT 98
== END 2020-07-10 09:31 | disposition home or self-care (01) ==
LOC: OUTP 07:24
PROVIDERS: PCP Emergency Medicine; Visit Provider Surgery
PROC: 0DJD8ZZ Inspection of Lower Intestinal Tract, Via Natural or Artificial Opening Endoscopic (ICD-10-PCS; CPT 45380; principal; 2020-07-10 08:30)
DX: Z12.11 Encounter for screening for malignant neoplasm of colon (principal); Z86.010 Personal history of colon polyps; K64.9 Unspecified hemorrhoids; K56.2 Volvulus; K57.30 Diverticulosis of large intestine without perforation or abscess without bleeding; K63.5 Polyp of colon; J44.9 Chronic obstructive pulmonary disease, unspecified; K21.9 Gastro-esophageal reflux disease without esophagitis; E78.5 Hyperlipidemia, unspecified; I10 Essential (primary) hypertension; F41.9 Anxiety disorder, unspecified; F32.9 Major depressive disorder, single episode, unspecified
CPT/HCPCS: 45380; J2704

== ENCOUNTER → 2020-08-28 08:47 | Outpatient (CLI) | payer MEDICAID, SELFPAY ==
[2020-08-28 11:03] LABS: Coronavirus 19 IgG Antibody Negative (Negative); Coronavirus 19 IgM Antibody Negative (Negative)
== END ==
PROVIDERS: Visit Provider Internal Medicine Gastroenterology
DX: Z01.818 Encounter for other preprocedural examination (principal); Z12.11 Encounter for screening for malignant neoplasm of colon; K58.9 Irritable bowel syndrome, unspecified; Z20.822 Contact with and (suspected) exposure to COVID-19
CPT/HCPCS: 36415; 86328

== ENCOUNTER 2020-08-29 11:19 | Day surgery (SDC) | payer MEDICAID, SELFPAY ==
[2020-08-21 10:59] VITALS: BMI 37.8
[2020-08-29 11:35] VITALS: BP 156/71; PULSE 74; RESP 20; TEMP 37.1; O2SAT 91
[2020-08-29 12:54] VITALS: O2SAT 95
--- NOTE | 2020-08-29 13:22 | HMH.PROC ---
[facility] Procedure Note Procedure Note:: Colonoscopy Procedure Report: Colonoscopy with hemorrhoid band ligation Endoscopist: Anuel Steiner II, MD Referring physician: Juan M Gonzalez M.D. Date of Procedure: August 29, 2020 Equipment: Olympus 180 variable stiffness pediatric colonoscope Sedation: MAC sedation Indication: Mrs. Suresh is a 59-year-old female with frequent bright red rectal bleeding with every bowel movement. She does have constipation predominant irritable bowel syndrome with lower abdominal pain and discomfort and bloating. She reports no weight loss or family history of colon cancer. She did have a colonoscopy with Dr. Juan M Gonzalez 1 to 2 months ago and was referred to me because of IBS. Procedure: Prior to the procedure, a history and physical exam was performed, and patient's medications and allergies were reviewed. The risks, benefits and alternatives of the sedation and procedure were discussed with the patient. All questions were answered and informed consent was obtained. The patient was brought to the procedure room. Patient identification and proposed procedure were verified by the physician and the nurse. The patient was placed in a left lateral decubitus position and the scope was passed under direct vision. Throughout the procedure, the patient's blood pressure, pulse, and oxygen saturations were monitored continuously. The colonoscopy was accomplished without difficulty. The patient tolerated the procedure well. Findings: On digital rectal examination there was normal rectal tone. There were no external hemorrhoids. The colonoscope was introduced through the anal canal to the rectum and advanced to the cecum. The ileocecal valve and appendiceal orifice were identified. The scope was advanced a short distance into the ileum which appeared grossly normal. The scope was then withdrawn into the colon. There were scattered diverticuli throughout the colon but more predominantly in the descending and sigmoid colon (LEFT colon). There was no evidence of colitis or Crohn's disease. The rectum itself was normal. Upon retroflexion within the rectum there were grade 2 internal hemorrhoids. 3 columns of hemorrhoids were banded using 3 bands with excellent ligation effect. The preparation was fair throughout with [place] Preparation Score of 7 out of 9. The cecal time was 14 minutes. Impression: 1. Pandiverticulosis 2. Grade 2 internal hemorrhoids status post band ligation x3 Plan: I would encourage a fiber bowel regimen on a long-term daily maintenance basis.
[2020-08-29 13:30] VITALS: BP 123/42; PULSE 97; RESP 18; TEMP 36.4; O2SAT 97
[2020-08-29 13:40] VITALS: BP 161/91; BP 161/92; PULSE 92; RESP 18; O2SAT 99
--- NOTE | 2020-08-29 13:40 | P.PN_ITS ---
[facility] Anesthesia Checklist - Patient Identification Patient Identification: Arm Band - Structural Data Planned Operative Procedure/s: colon Consent for Planned Operative Procedure(s) Verified: Yes Verified Documents: Surgical Consent - NPO Status Verified Time NPO: 00:00 - Chart Verification Results Verified: None - Additional verifications Anesthesia Reactions: No Hx Blood Transfusions: No Blood Transfusion Reaction: No - Anesthesia Plan Anesthesia Risk discussed: Yes Anesthesia Plan: Verified ASA Class: III Anesthesia Type: General [facility] History Medical History: Reports:: Anxiety, Chronic Obstructive Pulmonary Disease (COPD), Depression, Gastroesophageal Reflux Disease(GERD), Hyperlipidemia, Hypertension Denies:: Cancer, Diabetes Mellitus Type 1, Diabetes Mellitus Type 2, Internal Pacemaker, MRSA, Seizures *Have you ever received a pneumonia vaccine?: Yes *Have you received a flu vaccine this season?: Yes Other Medical History: Reports: Other. Denies: Blood Transfusion Reaction Anesthesia experience/problems:: non Laterality Cases: Left: Arthroscopy Knee, Right: Breast Biopsy, Lumpectomy Other Surgeries: Yes: No Previous Surgery, Bariatric Surgery, Colonoscopy, C- section, EGD, Other. No: Pacemaker Amputation: No Fractures: Yes - *Social History Last grade of school completed: Some college Smoking Status: Former smoker Tobacco Type: cigarettes # Packs/Day (cigarettes): 0 #Yrs smoked (if former smoker): 40 Smoking End Date: 4 yrs ago Alcohol Intake: never Alcohol Intake Frequency:: other Substance Use Type: denies use *Occupational Status:: disabled Housing: house Household Members: spouse *Travel in the last 8 weeks: None - Psychiatric History Pschychiatric History:: Reports:: Anxiety, Depression Family Hx:: No significant family history
[2020-08-29 13:56] VITALS: BP 170/72; PULSE 98; RESP 18; O2SAT 99
== END 2020-08-29 13:59 | disposition home or self-care (01) ==
LOC: OUTP 11:21
PROVIDERS: PCP Emergency Medicine; Visit Provider Internal Medicine Gastroenterology
PROC: 0DJD8ZZ Inspection of Lower Intestinal Tract, Via Natural or Artificial Opening Endoscopic (ICD-10-PCS; CPT 45378; principal; 2020-08-29 12:30)
DX: K58.1 Irritable bowel syndrome with constipation (principal); K62.5 Hemorrhage of anus and rectum; K57.30 Diverticulosis of large intestine without perforation or abscess without bleeding; K64.1 Second degree hemorrhoids; J44.9 Chronic obstructive pulmonary disease, unspecified; I10 Essential (primary) hypertension; E78.5 Hyperlipidemia, unspecified; K21.9 Gastro-esophageal reflux disease without esophagitis; F41.9 Anxiety disorder, unspecified; F32.9 Major depressive disorder, single episode, unspecified; Z88.0 Allergy status to penicillin; Z88.2 Allergy status to sulfonamides
CPT/HCPCS: 45398

== ENCOUNTER → 2020-11-21 07:15 | Outpatient (CLI) | payer MEDICAID, SELFPAY ==
[2020-11-21 08:01] LABS: Basophils % 0.1 % (0.1-2.0); Eosinophils # 0.1 K/mm3 (0.0-0.4); Eosinophils % 0.9 % (0.1-12.0); Hematocrit 34.3 % (37.0-47.0); Hemoglobin 11.1 g/dL (12.2-16.2); Lymphocytes # 2.3 K/mm3 (0.7-4.5); Mean Corpuscular HGB Conc 32.4 g/dL (31.8-35.4); Mean Corpuscular Hemoglobin 30.4 pg (27.0-31.2); Mean Corpuscular Volume 93.7 fl (81-99); Mean Platelet Volume 7.2 fl (7.4-10.4); Monocytes # 0.4 K/mm3 (0.1-1.0); Monocytes % 3.9 % (1.7-9.3); Neutrophils # 7.5 K/mm3 (1.8-7.8); Neutrophils % 73.1 % (37.0-80.0); Platelet Count 276 K/mm3 (142-424); Red Blood Count 3.65 M/mm3 (4.20-5.40); Red Cell Distribution Width 13.2 % (11.5-17.5); White Blood Count 10.3 K/mm3 (4.8-10.8)
[2020-11-21 08:32] LABS: Chloride 95 mmol/L (98-107); Potassium 4.4 mmoL/L (3.5-5.1); Sodium 134 mmol/L (136-145)
[2020-11-21 08:35] LABS: Alanine Aminotransferase 17 U/L (12-78); Albumin Level 4.4 g/dl (3.5-5.0); Albumin/Globulin Ratio 1.8 (1.1-1.8); Alkaline Phosphatase 125 U/L (38-126); Anion Gap 12.4 mEq/L (5-15); Aspartate Amino Transferase 23 U/L (14-36); Bilirubin,Total 0.7 mg/dl (0.2-1.3); Blood Urea Nitrogen 11 mg/dl (7-17); Calcium 9.8 mg/dl (8.4-10.2); Carbon Dioxide 31 mmol/L (22.0-30.0); Cholesterol 184 mg/dl (140-200); Estimated Glomerular Filt Rate 102 ml/min (>60); GFR (African American) 123 ML/MIN (>60); Globulin 2.5 g/dL (1.3-3.2); Glucose 101 mg/dl (74-100); Total Protein,Serum 6.9 g/dl (6.3-8.2); Triglycerides 111 mg/dl (30-150); VLDL Cholesterol 22 mg/dL (0-40)
[2020-11-21 08:43] LABS: Chol/HDL Ratio 1.7 (1-3.5); HDL Cholesterol 107 mg/dl (40-60)
[2020-11-21 08:54] LABS: T4 (Thyroxine) 11.1 ug/dl (5.53-11.0)
[2020-11-21 09:06] LABS: Thyroid Stimulating Hormone 0.98 uIU/mL (0.465-4.68)
[2020-11-21 10:21] LABS: 25-OH Vitamin D, Total 36.4 ng/mL (30-100)
== END ==
PROVIDERS: Visit Provider Emergency Medicine
DX: I10 Essential (primary) hypertension (principal); E78.5 Hyperlipidemia, unspecified; E55.9 Vitamin D deficiency, unspecified; E66.9 Obesity, unspecified; Z68.37 Body mass index [BMI] 37.0-37.9, adult
CPT/HCPCS: 36415; 80053; 80061; 82306; 84436; 84443; 85025

== ENCOUNTER → 2020-11-29 08:24 | Outpatient (CLI) | payer MEDICAID, SELFPAY ==
[2020-11-29 08:28] LABS: Microscopic, Urine URINE MICROSCOPIC (MICROSCOPIC)
[2020-11-29 08:56] LABS: Appearance,Urine SL CLOUDY (Clear); Bilirubin,Urine Negative (Negative); Blood, Urine Negative (Negative); Color,Urine YELLOW (Yellow); Glucose,Urine (UA) Negative (Negative); Ketones,Urine Negative (Negative); Leukocyte Esterase,Urine TRACE (Negative); Nitrate,Urine Negative (Negative); Protein,Urine Negative (Negative); Urobilinogen,Urine 0.2 EU/dl (0.2)
[2020-11-29 09:10] LABS: Bacteria,Urine 2+ /lpf; Squamous Epithelial Cell,Urine Occasional #/hpf (0-5)
== END ==
PROVIDERS: Visit Provider Emergency Medicine
DX: N39.0 Urinary tract infection, site not specified (principal); A04.2 Enteroinvasive Escherichia coli infection; I10 Essential (primary) hypertension; E78.5 Hyperlipidemia, unspecified; E55.9 Vitamin D deficiency, unspecified; E66.9 Obesity, unspecified
CPT/HCPCS: 81001; 87086; 87088; 87186

== ENCOUNTER 2021-01-15 08:00 | Outpatient (RCR) | payer MEDICAID, SELFPAY ==
--- NOTE | 2020-12-18 09:38 | HMH.PTOPEV ---
PT Outpatient Evaluation Rehab PT Outpatient Evaluation Start: 12/18/20 08:49 Freq: Status: Active Protocol: Document 12/18/20 09:27 JOSE F (Rec: 12/18/20 09:37 JOSE F [id number]) Electronically Signed By Edmond Mohamud, PT 12/18/20 09:27 Outpatient Therapy Subjective History Subjective History Patient is a 60 year old female presenting to outpatient PT with reports of chronic LBP with intermittent RLE radicular symptoms. No recent imaging to report. Comorbidities include hx of HTN, COPD, L knee arthroscopic sx and R foot arthrodesis. Chief Complaint Pain,Paresthesia Symptom Type Ache,Sharp,Dull Symptoms Relieved By Nothing Symptoms Aggravated By Sitting,Standing,Bending/ Stooping,Physical Activity, Walking,Lifting Prior Functional Limitations Lifting,Housework,Standing, Sitting,Walking,Bending/ Stooping Current Functional Limitations Lifting,Housework,Standing, Sitting,Walking,Bending/ Stooping Symptom Description Constant but Variable Level of pain today (0-10) 5 Pain scale - at its best (0-10) 4 Pain scale - at its worst (0-10) 9 Lumbopelvic Eval Posture Thoracic Spine Posture Standing Position Increased Kyphosis Lumbar Spine Posture Standing Position Decreased Lordosis Assistive device Assistive Devices None / NA Palapation tenderness right buttock tenderness Yes: 3/4 Lumbar/Sacral Palpation Findings Tenderness Lumbar/Sacral Palpation Overall Comment R SIJ 3/4 Accessory Movement S1 right Range of Motion Lumbar Spine Active Flexion Range of 45 Motion (degrees) Lumbar Spine Active Extension Range of 10 Motion (degrees) Left Lumbar Spine Lateral Flexion Active 10 Range of Motion (degrees) Right Lumbar Spine Lateral Flexion 12 Active Range of Motion (degrees) Lumbar Spine ROM Limitations Soft Tissue Tightness,Bony Restriction Manual Muscle Test Right Knee Extension Strength Grade 4- Good- Knee Flexion Strength Grade 4- Good- Hip Flexion Strength Grade 4- Good- Extensor Hallucis Longus Strength Grade 4- Good- Ankle Dorsiflexion Strength Grade 4- Good- Gastronemius/Soleus Strength Grade 4- Good- Left Knee Extension Strength Grade 4 Good Knee Flexion Strength Grade 4 Good Hip Flexion Strength Grade 4 Good Extensor Hallucis Longu
--- NOTE | 2021-01-13 11:03 | HMH.RHREAS ---
Rehab Reassessment Rehab OP Re-assessment Start: 01/13/21 10:34 Freq: Status: Active Protocol: Document 01/13/21 10:35 JOSE F (Rec: 01/13/21 10:57 JOSE F [id number]) Electronically Signed By Edmond Mohamud, PT 01/13/21 10:35 Rehab Re-assessment Subjective Subjective Patient reports 50% improvement since start of care with intermittent exacerbations of symptoms. Objective Objective Notes AROM: flx 48 ; ext 12; SBr 12 ; SBl 15 MMT (L/R): hip flx 4+/4; knee ext 4+/4; knee flx 4+/4; DF 4+ /4; hallux 4+/4 Pain: 6/10 today; 8/10 at worst Neuro: Patient continues to report intermittent R S1 radicular symptoms. TTP: R SIJ Assessment Progress Assessment Progressing as Expected Assessment Notes Patient is tolerating modified treatment well. Initial introduction of data entry clerk HEP caused symptom exacerbation. Therefore patient has declined to be compliant with HEP or peformance of ther-ex in clinic. Patient has responded well to light supine lumbar mechanical traction. She reports decreased symptoms for approx 2 days after Rx. She continues to have persistent functional limitations with all standing, walking, bending and lifting activities. Patient goals met None Goals Not Met All Revised Goals NA Plan Plan Continue with current POC Frequency of Therapy 2x/week Duration of therapy 4 weeks Time and Billing Re-Eval Time 15 Re-Eval Billing Units 1 PHYSICIAN CERTIFICATION: I certify the specified therapy services for Reva Suresh are required, authorized, and reviewed every 30 days.
== END 2021-01-15 08:05 | disposition home or self-care (01) ==
LOC: PT 08:00
PROVIDERS: PCP Emergency Medicine; Visit Provider Emergency Medicine
DX: M54.5 Low back pain (principal)
CPT/HCPCS: 97010; 97012; 97014; 97110; 97163; 97164; G0283

== ENCOUNTER 2021-01-24 10:27 | Emergency (ER) | payer MEDICAID, SELFPAY ==
[2021-01-24 10:28] VITALS: BP 153/84; PULSE 89; RESP 20; TEMP 36.5; O2SAT 99; BMI 34.9
--- NOTE | 2021-01-24 10:44 | HMH.EDUTC ---
[facility] – [place] Disposition Clinical Impression: Gastroenteritis Disposition: Home, Self-Care Condition on Discharge: Good Instructions: DI for Viral Gastroenteritis -- Adult Additional Instructions: Clear liquids, BRAT diet Prescriptions: Promethazine HCl [Phenergan 12.5mg tablet] 12.5 mg PO Q6H PRN 5 Days #20 tab PRN Reason: Vomiting Transmission Status: Pending to Clinic [facility] Referrals: Ton Guerra MD [Primary Care Provider] - Time of Disposition: 10:56 Medical Decision Making - Joel Inquiry Pt receiving controlled substance: No [facility] – [place] HPI - General Stated complaint: vomiting, nausea Time Seen by Provider: 01/24/21 10:44 - History of Present Illness Provider Complaint: Vomiting and diarrhea started late last night. No fever. No rash. No body aches or chills. Onset (ago): day(s) (1) Location: abdomen Relieving factors: none Exacerbating factors: none Associated symptoms: nausea/vomiting Treatments prior to arrival: none - Related Data Previous Rx's Medication Instructions Recorded lisinopril 20 mg tablet 20 mg PO HS #90 tab 09/17/20 atorvastatin 10 mg tablet See Rx Instructions .ROUTE 10/09/20 .COMPLEX #90 tablet cholecalciferol (vitamin D3) 25 See Rx Instructions .ROUTE 10/09/20 mcg (1,000 unit) tablet .COMPLEX #90 tablet hydrochlorothiazide 12.5 mg capsule See Rx Instructions .ROUTE 10/31/20 .COMPLEX #90 capsule escitalopram oxalate 10 mg tablet 10 mg PO DAILY #90 tab 11/10/20 nitrofurantoin 100 mg PO Q12H 7 Days #14 cap 12/02/20 monohydrate/macrocrystals 100 mg capsule diclofenac sodium 1 % topical gel 4 g TOPICAL QID PRN 30 Days #100 g 12/08/20 ergocalciferol (vitamin D2) 1,250 See Rx Instructions .ROUTE 12/09/20 mcg (50,000 unit) capsule .COMPLEX #30 capsule tiotropium 2.5 mcg-olodaterol 2.5 See Rx Instructions .ROUTE 12/09/20 mcg/actuation mist for inhalation .COMPLEX #4 gram hydrocodone 10 mg-acetaminophen 1 tab PO TID PRN #90 tab 12/30/20 325 mg tablet bupropion HCl 150 mg tablet,12 hr 150 mg PO BID #180 each 12/31/20 sustained-release carvedilol 12.5 mg tablet See Rx Instructions .ROUTE 01/02/21 .COMPLEX #180 tab lisinopril 10 mg tablet See Rx Instructions .ROUTE 01/02/21 .COMPLEX #90 tab omeprazole 40 mg capsule,delayed See Rx Instructions .ROUTE 01/02/21 release .COMPLEX #90 cap risperidone 2 mg tablet See Rx Instructions .ROUTE 01/02/21 .COMPLEX #90 tab Promethazine HCl [Phenergan 12.5mg 12.5 mg PO Q6H PRN 5 Days #20 tab 01/24/21 tablet] Allergies Allergy/AdvReac Type Severity Reaction Status Date / Time Penicillins [PENICILLINS] Allergy Unknown Verified 12/30/20 11:02 phenobarbital [PHENOBARBITAL] Allergy Unknown Verified 12/30/20 11:02 Sulfa (Sulfonamide Allergy Unknown Verified 12/30/20 11:02 Antibiotics) [SULFA (SULFONAMIDE ANTIBIOTICS)] [facility] History - Hepatitis A Screen Attestation statement:: This patient has been screened for Hepatitis A risk factors. I have reviewed the patient's past medical history: Yes Medical History: Reports:: Anxiety, Chronic Obstructive Pulmonary Disease (COPD), Depression, Gastroesophageal Reflux Disease(GERD), Hyperlipidemia, Hypertension Denies:: Cancer, Diabetes Mellitus Type 1, Diabetes Mellitus Type 2, Internal Pacemaker, MRSA, Seizures Other Medical History: Reports: Other. Denies: Blood Transfusion Reaction Comment: Back pain Laterality Cases: Left: Arthroscopy Knee, Right: Breast Biopsy, Lumpectomy Other Surgeries: Yes: No Previous Surgery, Bariatric Surgery, Colonoscopy, , EGD, Other. No: Pacemaker Amputation: No Fractures: Yes Comment: TRIPLE ARTHRODESIS R FOOT, RIGHT FOOT X9 SINCE 1990, LT KNEE ARTHROSCOPY, , FACIAL SURGERY, LUMPECTOMY RT BREAST, RIGHT 5TH FINGER, COLONSCOPY COLON BIOPSY - Social History Smoking Status: Former smoker Tobacco Type: cigarettes # Packs/Day (cigarettes): 0 #Yrs smoked (if former smoker): 40 Alcohol Intake: never
[2021-01-24 11:01] VITALS: BP 153/84; PULSE 89; RESP 20; TEMP 36.5
== END 2021-01-24 11:01 | disposition home or self-care (01) ==
PROVIDERS: Emergency Provider Physician Assistant; PCP Emergency Medicine
DX: K52.9 Noninfective gastroenteritis and colitis, unspecified (principal); F41.8 Other specified anxiety disorders; E78.5 Hyperlipidemia, unspecified
CPT/HCPCS: 99202; G0463

== ENCOUNTER 2021-01-24 13:01 | Inpatient (IN) | payer MEDICAID, SELFPAY ==
[2021-01-24] VITALS (7 sets, daily range): BP systolic 139–209; BP diastolic 71–100; PULSE 69–102; RESP 18; TEMP 36.6–36.8; O2SAT 95–97; BMI 35.9; BMI 36.3
--- NOTE | 2021-01-24 13:32 | HMH.EDNVD ---
ED Disposition Clinical Impression: Diverticulitis large intestine Qualifiers: Diverticulitis bleeding: without bleeding Diverticulitis complication: without perforation or abscess Qualified Code(s): K57.32 - Diverticulitis of large intestine without perforation or abscess without bleeding Disposition: Admitted As Inpatient Condition on Discharge: Serious Instructions: DI for Diarrhea and Traveler's Diarrhea -- Adult, DI for Diarrhea and Traveler's Diarrhea -- Child, DI for Nausea -- Adult, DI for Nausea -- Child Referrals: Ton Guerra MD [Primary Care Provider] - - Critical Care Critical Care Time: No Attestation: On 01/24/21, the high probability of a clinically significant, sudden or life threatening deterioration of the following system(s) required my full and direct attention, intervention and personal management. The time I documented below is in addition to time spent performing reported procedures but includes the following listed in this critical care notation. Medical Decision Making - Medical Records Medical records reviewed: Yes: I reviewed the patient's medical records. - Joel Inquiry Pt receiving controlled substance: No Vital Signs: 01/24/21 13:02 Temperature 98.3 F Temperature Source Oral Pulse Rate [Left] 69 Respiratory Rate 18 Blood Pressure [Right Arm] 209/100 H Blood Pressure Mean [Right Arm] 136 Blood Pressure Source [Right Arm] Automatic Cuff Blood Pressure Position [Right Arm] Sitting 02 Sat by Pulse Oximetry 96 Oxygen Delivery Method Room Air - Lab Data Lab results reviewed: Yes: I reviewed the patient's lab results. Lab Results 01/24/21 13:45: WBC 12.0 H, RBC 4.03 L, Hgb 12.4, Hct 37.2, MCV 92.3, MCH 30.7, MCHC 33.2, RDW 13.0, Plt Count 309, MPV 8.5, Neut % (Auto) 81.6 H, Lymph % (Auto) 14.9, [place] % (Auto) 2.4, Eos % (Auto) 0.9, Baso % (Auto) 0.2, Neut # (Auto) 9.8 H, Lymph # (Auto) 1.8, [place] # (Auto) 0.3, Eos # (Auto) 0.1, Baso # (Auto) 0.0 01/24/21 13:45: Sodium 137, Potassium 4.6, Chloride 96 L, Carbon Dioxide 26, Anion Gap 19.6 H, BUN 7, Creatinine 0.50 L, Estimated Creat Clear 88, Estimated GFR 125, Est GFR ( Amer) 152, Glucose 125 H, Calcium 9.9, Total Bilirubin 1.3, AST 63 H, ALT 49, Alkaline Phosphatase 131 H, Total Protein 8.6 H, Albumin 5.1 H, Globulin 3.5 H, Albumin/Globulin Ratio 1.5 01/24/21 13:45: Lactate 3.4 H 01/24/21 13:45: Lipase 31 Result diagrams: 01/24/21 13:45 01/24/21 13:45 Orders (Tests/Meds): ED MEDICATIONS Generic Name Dose Route Start Last Admin Trade Name Freq PRN Reason Stop Dose Admin Sodium Chloride 10 ml 01/24/21 13:13 Sodium Chloride 0.9% 10ml Vial IV 02/23/21 13:12 NEEDED PRN dilute protonix Sodium Chloride 10 ml 01/24/21 13:13 Sodium Chloride 0.9% 10ml Flush Syringe IV 02/23/21 13:12 NEEDED PRN Maintain IV Site Discontinued Medications Generic Name Dose Route Start Last Admin Trade Name Freq PRN Reason Stop Dose Admin Dicyclomine HCl 20 mg 01/24/21 14:55 01/24/21 15:59 Dicyclomine 20 Mg/2ml Vial IM 01/24/21 14:56 20 mg ONCE ONE Administration Iopamidol 75 ml 01/24/21 16:15 01/24/21 16:17 Iopamidol-370 (76%);100ml Bottle IV 01/24/21 16:16 75 ml ONCE ONE Administration Metoclopramide HCl 10 mg 01/24/21 13:13 01/24/21 13:28 Metoclopramide Hcl 10mg/2ml Vial IVP 01/24/21 13:14 10 mg ONCE ONE Administration Pantoprazole Sodium 40 mg 01/24/21 13:13 01/24/21 13:28 Pantoprazole 40mg Vial IV 01/24/21 13:14 40 mg ONCE ONE Administration Promethazine HCl 12.5 mg 01/24/21 14:55 01/24/21 16:01 Promethazine Hcl 25mg/Ml 1ml Vial IV 01/24/21 14:56 12.5 mg ONCE ONE Administration Sodium Chloride 500 ml 01/24/21 13:15 01/24/21 13:28 Sodium Chloride 0.9% 500ml Bag IV 01/24/21 13:16 500 ml ONCE ONE Administration Sodium Chloride 25 ml 01/24/21 14:55 01/24/21 16:05 Sodium Chloride 0.9% 25ml Bag IV 01/24/21 14:56 Not Gi
[2021-01-24 14:17] LABS: Basophils % 0.2 % (0.1-2.0); Eosinophils # 0.1 K/mm3 (0.0-0.4); Eosinophils % 0.9 % (0.1-12.0); Hematocrit 37.2 % (37.0-47.0); Hemoglobin 12.4 g/dL (12.2-16.2); Lymphocytes # 1.8 K/mm3 (0.7-4.5); Lymphocytes % 14.9 % (10-50); Mean Corpuscular HGB Conc 33.2 g/dL (31.8-35.4); Mean Corpuscular Hemoglobin 30.7 pg (27.0-31.2); Mean Corpuscular Volume 92.3 fl (81-99); Mean Platelet Volume 8.5 fl (7.4-10.4); Monocytes # 0.3 K/mm3 (0.1-1.0); Monocytes % 2.4 % (1.7-9.3); Neutrophils # 9.8 K/mm3 (1.8-7.8); Neutrophils % 81.6 % (37.0-80.0); Platelet Count 309 K/mm3 (142-424); Red Blood Count 4.03 M/mm3 (4.20-5.40)
[2021-01-24 14:22] LABS: Chloride 96 mmol/L (98-107); Potassium 4.6 mmoL/L (3.5-5.1); Sodium 137 mmol/L (136-145)
[2021-01-24 14:25] LABS: Alanine Aminotransferase 49 U/L (12-78); Albumin Level 5.1 g/dl (3.5-5.0); Albumin/Globulin Ratio 1.5 (1.1-1.8); Alkaline Phosphatase 131 U/L (38-126); Anion Gap 19.6 mEq/L (5-15); Aspartate Amino Transferase 63 U/L (14-36); Bilirubin,Total 1.3 mg/dl (0.2-1.3); Blood Urea Nitrogen 7 mg/dl (7-17); Carbon Dioxide 26 mmol/L (22.0-30.0); Creatinine Clearance Estimated 88 mL/min (50-200); Estimated Glomerular Filt Rate 125 ml/min (>60); GFR (African American) 152 ML/MIN (>60); Globulin 3.5 g/dL (1.3-3.2); Total Protein,Serum 8.6 g/dl (6.3-8.2)
[2021-01-24 14:26] LABS: Calcium 9.9 mg/dl (8.4-10.2); Glucose 125 mg/dl (74-100); Lipase 31 U/L (23-300)
[2021-01-24 14:27] LABS: Lactic Acid 3.4 mmol/L (0.7-2.1)
--- NOTE | 2021-01-24 15:04 | CT_ITS ---
PROCEDURE INFORMATION: Exam: CT Abdomen And Pelvis With Contrast Exam date and time: 01/24/2021 3:04 PM Age: 60 years old Clinical indication: Abdominal pain; Patient HX: Epigastric pain; Additional info: Epigastric pain; Intractable n/v TECHNIQUE: Imaging protocol: Computed tomography of the abdomen and pelvis with contrast. Radiation optimization: All CT scans at this facility use at least one of these dose optimization techniques: automated exposure control; mA and/or kV adjustment per patient size (includes targeted exams where dose is matched to clinical indication); or iterative reconstruction. Contrast material: ISOVUE; Contrast volume: 75 ml; Contrast route: IV; COMPARISON: DX KUB XR KUB 10/10/2018 9:49 AM FINDINGS: Heart: The heart demonstrates mild diffuse enlargement. Mediastinal space: A small hiatal hernia is present. Liver: Normal. No mass. Gallbladder and bile ducts: Normal. No calcified stones. No ductal dilation. Pancreas: Normal. No ductal dilation. Spleen: Normal. No splenomegaly. Adrenal glands: Normal. No mass. Kidneys and ureters: Nonspecific low-density foci of the kidneys statistically favor benign cysts, no further follow-up needed, as large as 3 mm on the left. Stomach and bowel: Mild diverticulosis is present in the distal colon. Mild thickening of the coker of the ascending and transverse colon consistent with mild colitis/diverticulitis. Appendix: No evidence of appendicitis. Intraperitoneal space: Normal. No significant fluid collection. Vasculature: Unremarkable. No abdominal aortic aneurysm. Lymph nodes: Unremarkable. No enlarged lymph nodes. Urinary bladder: Unremarkable as visualized. Reproductive: Unremarkable as visualized. Bones/joints: The lumbar spine demonstrates mild degenerative changes at multiple levels. Soft tissues: Soft tissues are normal. Other findings: Postoperative changes noted within the epigastric region. IMPRESSION: 1. Mild thickening of the coker of the ascending and transverse colon consistent with mild colitis/diverticulitis. 2. Postoperative changes noted within the epigastric region. 3. A small hiatal hernia is present. 4. Mild diverticulosis is present in the distal colon. 5. No evidence of appendicitis. COMMENTS: Consistent with the [employer]'s Incidental Findings Committee white paper (J Am Shelbi Radiol 2018): Any incidental renal lesion less than 1 cm or classified as too small to characterize, or any incidental cystic renal lesion characterized as simple-appearing, is likely benign. No follow-up imaging is recommended for these lesions per consensus recommendations based on imaging criteria.
[2021-01-24 16:50] LABS: Coronavirus 19, PCR Not Detected (NotDetected); Influenza A, PCR Not Detected (NotDetected); Influenza B, PCR Not Detected (NotDetected)
--- NOTE | 2021-01-24 16:52 | PC.NURSE ---
time out and consent for central like at 1416. with rhett ramirez, chapito rn, Dr. Ojeda. completeion of procedure 1446.
[2021-01-24 17:37] LABS: Reflex Lactic Add Lactic Reflex
--- NOTE | 2021-01-24 19:27 | PC.NURSE ---
Pt to floor 1800, bp 202/99, called ed and recieved an order for IV hydralizine per oct. Spoke with [facility] pharmacist and got instructions to push over 1 min. BP 139/82 now. CB in reach. Meds per oct.
--- NOTE | 2021-01-24 19:29 | PC.NURSE ---
Pt also states she takes an inhaler, but is unsure what the name is.
--- NOTE | 2021-01-24 20:10 | PC.NURSE ---
PT IS REFUSING ALL LABS UNTIL MORNING. PT IS VERY UPSET AND STATES SHE WILL NOT BE STUCK ANYMORE.
--- NOTE | 2021-01-24 20:33 | HMH.HP ---
*Admission Date: 01/24/21 *Chief complaint: abd pain *History of present illness: [facility] with abd pain and was started on meds for gastroenteritis and had progressive sx and returned and was seen in the ed- is is a 60-year-old female that presents with nausea vomiting diarrhea that began this morning. Antiemetics prescribed earlier in the [facility]. Patient reports watery diarrhea. No hematochezia or melena. No hematemesis. She also reports burning at the epigastrium. She denies any fever chills. Patient had continued sx despite ed treatment continues to have intractable vomiting despite multiple IV antiemetics. Routine lab work shows mildly elevated white count. CT of the abdomen pelvis shows mild thickening of the transverse and descending colon consistent with acute colitis/diverticulitis. As such patient be admitted for IV fluids and antibiotics. [facility] History I have reviewed the patient's past medical history: Yes Medical History: Reports:: Anxiety, Chronic Obstructive Pulmonary Disease (COPD), Depression, Gastroesophageal Reflux Disease(GERD), Hyperlipidemia, Hypertension Denies:: Cancer, Diabetes Mellitus Type 1, Diabetes Mellitus Type 2, Internal Pacemaker, MRSA, Seizures *Have you ever received a pneumonia vaccine?: Yes *Have you received a flu vaccine this season?: Yes Other Medical History: Reports: Other. Denies: Blood Transfusion Reaction Laterality Cases: Left: Arthroscopy Knee, Right: Breast Biopsy, Lumpectomy Other Surgeries: Yes: No Previous Surgery, Bariatric Surgery, Colonoscopy, , EGD, Other. No: Pacemaker Amputation: No Fractures: Yes - *Social History Smoking Status: Former smoker Tobacco Type: cigarettes # Packs/Day (cigarettes): 0 #Yrs smoked (if former smoker): 40 Alcohol Intake: never Alcohol Intake Frequency:: other Substance Use Type: denies use *Occupational Status:: retired, disabled Housing: house Household Members: spouse *Travel in the last 8 weeks: None - Psychiatric History Pschychiatric History:: Reports:: Anxiety, Depression Family Hx:: No significant family history Review of Systems - Review of Systems Review of systems:: pertinent systems reviewed and negative unless documented below - Constitutional Denies fever(s) - Eyes Denies change in vision - ENT Denies sore throat - *Cardiovascular Denies chest pain - *Respiratory Denies cough - *Gastrointestinal Reports abdominal pain, Reports nausea, Reports vomiting - *Genitourinary Denies blood in urine - *Musculoskeletal Denies joint pain - Integumentary/Breasts Denies rash - *Neurologic Denies localized weakness, Denies headache(s), Denies seizure-like activity - Psychiatric Denies anxiety Meds Home Medications Medication Instructions Recorded Confirmed Type lisinopril 20 mg tablet 20 mg PO HS #90 tab 09/17/20 01/24/21 Rx diclofenac sodium 1 % topical gel 4 g TOPICAL QID PRN 30 Days #100 g 12/08/20 01/24/21 Rx hydrocodone 10 mg-acetaminophen 1 tab PO TID PRN #90 tab 12/30/20 01/24/21 Rx 325 mg tablet Atorvastatin Calcium [Lipitor 10mg See Rx Instructions .ROUTE .COMPLEX 01/24/21 01/24/21 History Tab] Cholecalciferol (Vitamin D3) See Rx Instructions .ROUTE .COMPLEX 01/24/21 01/24/21 History [Vitamin D3 1,000 Unit Tab] Ergocalciferol (Vitamin D2) See Rx Instructions .ROUTE .COMPLEX 01/24/21 01/24/21 History [Drisdol] Escitalopram Oxalate 10 mg PO DAILY 01/24/21 01/24/21 History Omeprazole See Rx Instructions .ROUTE .COMPLEX 01/24/21 01/24/21 History Promethazine HCl [Phenergan 12.5mg 12.5 mg PO Q6H PRN 5 Days #20 tab 01/24/21 01/24/21 Rx tablet] Tiotropium Br/Olodaterol HCl See Rx Instructions .ROUTE .COMPLEX 01/24/21 01/24/21 History [Stiolto Respimat Inhal [place]] buPROPion HCL [Wellbutrin SR] 150 mg PO BID 01/24/21 01/24/21 History carvediloL [Carvedilol 12.5mg Tab] See Rx Instructions .ROUTE BID 01/24/21 01/24/21 History hydroCHLOROthi
[2021-01-25 00:16] LABS: Microscopic, Urine URINE MICROSCOPIC (MICROSCOPIC)
[2021-01-25 00:23] LABS: Appearance,Urine SL CLOUDY (Clear); Bilirubin,Urine Negative (Negative); Blood, Urine Negative (Negative); Color,Urine YELLOW (Yellow); Glucose,Urine (UA) Negative (Negative); Ketones,Urine Negative (Negative); Leukocyte Esterase,Urine Negative (Negative); Nitrate,Urine Negative (Negative); Protein,Urine Negative (Negative); Urobilinogen,Urine 0.2 EU/dl (0.2)
[2021-01-25 00:42] LABS: Bacteria,Urine 3+ /lpf
--- NOTE | 2021-01-25 03:25 | PC.NURSE ---
A&OX4. TOLERATING RA WELL. PT HAS HAD CONTINUOUS NA/VO T/O SHIFT. PT IS MOSTLY DRY HEAVING. TX WITH ZOFRAN, WHICH DID NOT HELP SYMPTOMS. GAVE COMPAZINE PER EDDA. AWAITING RESULTS OF THIS MED AT THIS TIME. PT HAS HAD NO OTHER ISSUES THUS FAR, TOLERATING NPO DIET WELL. VSS WILL CONTINUE TO MONITOR.
[2021-01-25 03:59] VITALS: BP 148/88; PULSE 95; RESP 17; TEMP 37.2; O2SAT 92
[2021-01-25 05:20] VITALS: BMI 36.0
--- NOTE | 2021-01-25 05:32 | PC.NURSE ---
Addendum entered by Maya Palencia RN 01/25/21 06:42: PHENERGAN ORDER CANCELLED PER MD DESOUZA Original Note: PT STATING THAT SHE IS STILL HAVING NA/VO. CONTACTED [facility] MD DESOUZA. NEW ORDERS: D/C ZOFRAN, ORDER PHENERGAN 12.5 X1 NOW, START COMPAZINE 10MG Q6H PRN.
--- NOTE | 2021-01-25 06:38 | PC.NURSE ---
PT CONTINUES TO REFUSE AM LABS. MD BAÑUELOS AWARE. NNO.
--- NOTE | 2021-01-25 07:55 | HMH.ACPN2 ---
Internal Medicine - PN: Subj *Date: 01/25/21 *Time: 07:55 Interval history: doing better but still with nausea and abd pain Exam Vital signs and Labs for Last 24 Hours: Temp Pulse Resp BP Pulse Ox 99.0 F 95 H 17 148/88 H 92 L 01/25/21 03:59 01/25/21 03:59 01/25/21 03:59 01/25/21 03:59 01/25/21 03:59 Laboratory Results - last 24 hr 01/24/21 13:45: WBC 12.0 H, RBC 4.03 L, Hgb 12.4, Hct 37.2, MCV 92.3, MCH 30.7, MCHC 33.2, RDW 13.0, Plt Count 309, MPV 8.5, Neut % (Auto) 81.6 H, Lymph % (Auto) 14.9, [place] % (Auto) 2.4, Eos % (Auto) 0.9, Baso % (Auto) 0.2, Neut # (Auto) 9.8 H, Lymph # (Auto) 1.8, [place] # (Auto) 0.3, Eos # (Auto) 0.1, Baso # (Auto) 0.0 01/24/21 13:45: Sodium 137, Potassium 4.6, Chloride 96 L, Carbon Dioxide 26, Anion Gap 19.6 H, BUN 7, Creatinine 0.50 L, Estimated Creat Clear 88, Estimated GFR 125, Est GFR ( Amer) 152, Glucose 125 H, Calcium 9.9, Total Bilirubin 1.3, AST 63 H, ALT 49, Alkaline Phosphatase 131 H, Total Protein 8.6 H, Albumin 5.1 H, Globulin 3.5 H, Albumin/Globulin Ratio 1.5 01/24/21 13:45: Lactate 3.4 H 01/24/21 13:45: Lipase 31 01/24/21 16:36: Urine Color Yellow, Urine Appearance Sl cloudy, Urine pH 7.0, Ur Specific [place] 1.010, Urine Protein Negative, Urine Glucose (UA) Negative, Urine Ketones Negative, Urine Blood Negative, Urine Nitrate Negative, Urine Bilirubin Negative, Urine Urobilinogen 0.2, Ur Leukocyte Esterase Negative, Urine WBC 5-10, Ur Squamous Epith Cells 10-20, Urine Bacteria 3+ 01/24/21 16:44: SARS-CoV-2 (PCR) Not detected, Influenza A Untype (PCR) Not detected, Influenza Type B (PCR) Not detected I & O for Last 24 hours: Intake & Output 01/22/21 01/23/21 01/24/21 01/25/21 11:59 11:59 11:59 11:59 Intake Total 1690 / 1690 Balance 1690 / 1690 Weight 211 lb - Constitutional no acute distress, obese - *Routine HEENT Exam Head: Present: normocephalic Eye: Present: EOMI, PERRL ENT: Present: mucous membranes dry - *Routine Neck Exam Present: supple - *Routine Respiratory Exam Present: CTA bilaterally - *Routine Cardiovascular Exam Present: RRR - *Routine Abdominal Exam Present: soft - *Routine Extremities Exam Absent: calf tenderness - *Routine Skin Exam Present: intact - *Routine Neurological Exam Present: alert - Routine Psychiatric Exam Present: normal affect Assessment and Plan (1) Severe sepsis with acute organ dysfunction Status: Acute Category: Medical Code(s): A41.9 - Sepsis, unspecified organism; R65.20 - Severe sepsis without septic shock (2) Diverticulitis large intestine Status: Acute Qualifiers: Diverticulitis bleeding: without bleeding Diverticulitis complication: without perforation or abscess Qualified Code(s): K57.32 - Diverticulitis of large intestine without perforation or abscess without bleeding Category: Medical Code(s): K57.32 - Diverticulitis of large intestine without perforation or abscess without bleeding (3) Obesity (BMI 30.0-34.9) Status: Acute Category: Medical Code(s): E66.9 - Obesity, unspecified (4) Chronic low back pain Status: Chronic Qualifiers: Back pain laterality: unspecified Sciatica presence: without sciatica Qualified Code(s): M54.5 - Low back pain; G89.29 - Other chronic pain Category: Medical Code(s): M54.5 - Low back pain; G89.29 - Other chronic pain (5) Bipolar 1 disorder Status: Acute Category: Medical Code(s): F31.9 - Bipolar disorder, unspecified
[2021-01-25 08:00] VITALS: BP 148/87; PULSE 91; RESP 18; TEMP 37.1; O2SAT 91
--- NOTE | 2021-01-25 08:43 | HMH.PHAVTE ---
[facility] Pharmacy VTE Monitoring - Patient Demographics Admission date: 01/24/21 Report Date: 01/25/21 Time: 08:43 Allergies/Adverse Reactions: Patient Allergies Penicillins [PENICILLINS] Allergy (Unknown, Verified 01/24/21 17:08) phenobarbital [PHENOBARBITAL] Allergy (Unknown, Verified 01/24/21 17:08) Sulfa (Sulfonamide Antibiotics) [SULFA (SULFONAMIDE ANTIBIOTICS)] Allergy (Unknown, Verified 01/24/21 17:08) Height: 1.63 m Weight: 95.708 kg Patient Problems: Current Active Problems (Last Updated 09/28/17 @ 12:36 by MANJIT Milian) Diverticulitis large intestine (Acute) Severe sepsis with acute organ dysfunction (Acute) Obesity (BMI 30.0-34.9) (Acute) Chronic low back pain (Chronic) Bipolar 1 disorder (Acute) - VTE Risk Labs: VTE Related Lab Results Hgb 12.4 g/dL (12.2-16.2) 01/24/21 13:45 Hct 37.2 % (37.0-47.0) 01/24/21 13:45 Plt Count 309 K/mm3 (142-424) 01/24/21 13:45 BUN 7 mg/dl (7-17) 01/24/21 13:45 Creatinine 0.50 mg/dl (0.52-1.04) L 01/24/21 13:45 Estimated Creat Clear 88 mL/min (50-200) 01/24/21 13:45 Clinical Trial Participant: No - Prophylaxis VTE Prophylaxis Ordered?: Yes Types of VTE Prophylaxis: TEDS Knee High
--- NOTE | 2021-01-25 08:52 | HMH.PHAINT ---
HOME MEDICATION LIST CLARIFIED USING LIST FROM OUTSIDE PHARMACY AND PCP OFFICE
--- NOTE | 2021-01-25 15:05 | PC.NURSE ---
Pt is alert and oriented and able to make needs known. Meds given per mar. CB in reach. Pt ambulates independently to bathroom. VSS. Pt has c/o of pain to upper abd and nausea as well. We did a trial of clears today and pt states it came right back up. Have encouraged pt to just take sips and chips as tolerated at this time. BS x 4, lungs cta, s1,s2. Refused teds. Mx continues. VSS.
[2021-01-25 15:43] VITALS: BP 175/88; PULSE 79; RESP 18; TEMP 37.4; O2SAT 95
[2021-01-25 17:33] LABS: Basophils % 0.1 % (0.1-2.0); Eosinophils % 0.3 % (0.1-12.0); Hematocrit 34.2 % (37.0-47.0); Hemoglobin 11.4 g/dL (12.2-16.2); Lymphocytes # 2.2 K/mm3 (0.7-4.5); Lymphocytes % 21.8 % (10-50); Mean Corpuscular HGB Conc 33.3 g/dL (31.8-35.4); Mean Corpuscular Hemoglobin 30.4 pg (27.0-31.2); Mean Corpuscular Volume 91.2 fl (81-99); Mean Platelet Volume 7.3 fl (7.4-10.4); Monocytes # 0.5 K/mm3 (0.1-1.0); Monocytes % 4.8 % (1.7-9.3); Neutrophils # 7.5 K/mm3 (1.8-7.8); Platelet Count 232 K/mm3 (142-424); Red Blood Count 3.75 M/mm3 (4.20-5.40); Red Cell Distribution Width 13.1 % (11.5-17.5); White Blood Count 10.3 K/mm3 (4.8-10.8)
[2021-01-25 17:34] LABS: Chloride 98 mmol/L (98-107); Sodium 136 mmol/L (136-145)
[2021-01-25 17:37] LABS: Blood Urea Nitrogen 4 mg/dl (7-17); Creatinine Clearance Estimated 89 mL/min (50-200); Estimated Glomerular Filt Rate 125 ml/min (>60); GFR (African American) 152 ML/MIN (>60); Lactic Acid 0.9 mmol/L (0.7-2.1)
[2021-01-25 17:38] LABS: Carbon Dioxide 30 mmol/L (22.0-30.0); Glucose 102 mg/dl (74-100)
[2021-01-25 17:39] LABS: Calcium 8.7 mg/dl (8.4-10.2)
[2021-01-25 19:27] VITALS: BP 188/105; PULSE 82; RESP 16; TEMP 37.2; O2SAT 94
--- NOTE | 2021-01-25 22:08 | PC.NURSE ---
2100 [address] PATIENT AWAKE LAYING IN BED. PATIENT STATED NO NEEDS AT THIS TIME.
--- NOTE | 2021-01-26 03:17 | PC.NURSE ---
A&OX4. TOLERATING RA WELL. PT HAS CONTINUED TO C/O EPIGASTRIC PAIN, AND CONTINUOUS NA/VO. PT ATTEMPTED TO DRINK SOME CHICKEN BROTH AND SHANTA MIST BUT THEY DID NOT STAY DOWN. PT STATES, I CAN ONLY KEEP DOWN WATER. TX WITH PRN MEDS PER OCT, PT STATES SHE FEELS BETTER THAN LAST NIGHT BUT STILL ISN'T MUCH BETTER. PT HASN'T SLEPT MUCH THIS SHIFT. VSS WILL CONTINUE TO MONITOR.
[2021-01-26 03:46] VITALS: BP 170/91; PULSE 83; RESP 16; TEMP 36.8; O2SAT 90
[2021-01-26 05:00] VITALS: BMI 36.0
--- NOTE | 2021-01-26 06:08 | PC.NURSE ---
[address]00 [address] PATIENT AWAKE . TRASH EMPTIED . PATIENT VOICED NO OTHER NEEDS.
[2021-01-26 06:44] LABS: Basophils % 0.1 % (0.1-2.0); Eosinophils % 0.3 % (0.1-12.0); Hematocrit 31.8 % (37.0-47.0); Lymphocytes # 1.8 K/mm3 (0.7-4.5); Lymphocytes % 21.2 % (10-50); Mean Corpuscular HGB Conc 34.4 g/dL (31.8-35.4); Mean Corpuscular Hemoglobin 30.9 pg (27.0-31.2); Mean Corpuscular Volume 89.8 fl (81-99); Mean Platelet Volume 7.9 fl (7.4-10.4); Monocytes # 0.5 K/mm3 (0.1-1.0); Monocytes % 5.6 % (1.7-9.3); Neutrophils % 72.7 % (37.0-80.0); Platelet Count 211 K/mm3 (142-424); Red Blood Count 3.54 M/mm3 (4.20-5.40); White Blood Count 8.3 K/mm3 (4.8-10.8)
[2021-01-26 06:59] LABS: Chloride 97 mmol/L (98-107); Sodium 134 mmol/L (136-145)
[2021-01-26 07:03] LABS: Blood Urea Nitrogen 3 mg/dl (7-17); Calcium 8.4 mg/dl (8.4-10.2); Carbon Dioxide 31 mmol/L (22.0-30.0); Creatinine Clearance Estimated 89 mL/min (50-200); Estimated Glomerular Filt Rate 125 ml/min (>60); GFR (African American) 152 ML/MIN (>60); Glucose 115 mg/dl (74-100)
[2021-01-26 07:28] VITALS: BP 165/93; PULSE 82; RESP 18; TEMP 36.8; O2SAT 93
--- NOTE | 2021-01-26 08:44 | US_ITS ---
PROCEDURE: US GALLBLADDER CLINICAL INDICATION: abd pain,vomiting,nausea COMPARISON: No exams were available for comparison FINDINGS: Pancreas: Unremarkable/Not well seen Liver: Unremarkable. There is appropriate direction of blood flow within a non dilated portal vein. Right kidney: Unremarkable appearing. No hydronephrosis. Gallbladder: No stones are evident. There is no gallbladder wall thickening. Common duct is normal in diameter. Gallbladder is mildly distended but could be due to the fasting state. IMPRESSION: Negative gallbladder ultrasound. No stones evident. Dictated by: Talon Akbar MD 01/26/2021 09:54 Talon Akbar MD in OV 01/26/2021 09:54
--- NOTE | 2021-01-26 08:44 | HMH.ACPN2 ---
Internal Medicine - PN: Subj *Date: 01/26/21 *Time: 09:12 Interval history: pt states she is still vomiting everything she tries to drink. pt c/o epigastric pain and cramping. Exam Vital signs and Labs for Last 24 Hours: Temp Pulse Resp BP Pulse Ox 98.3 F 82 18 165/93 H 93 L 01/26/21 07:28 01/26/21 07:28 01/26/21 07:28 01/26/21 07:28 01/26/21 07:28 Laboratory Results - last 24 hr 01/25/21 17:18: WBC 10.3, RBC 3.75 L, Hgb 11.4 L, Hct 34.2 L, MCV 91.2, MCH 30.4, MCHC 33.3, RDW 13.1, Plt Count 232, MPV 7.3 L, Neut % (Auto) 73.0, Lymph % (Auto) 21.8, [place] % (Auto) 4.8, Eos % (Auto) 0.3, Baso % (Auto) 0.1, Neut # (Auto) 7.5, Lymph # (Auto) 2.2, [place] # (Auto) 0.5, Eos # (Auto) 0.0, Baso # (Auto) 0.0 01/25/21 17:18: Sodium 136, Potassium 3.0 L, Chloride 98, Carbon Dioxide 30, Anion Gap 11.0, BUN 4 L D, Creatinine 0.50 L, Estimated Creat Clear 89, Estimated GFR 125, Est GFR ( Amer) 152, Glucose 102 H, Calcium 8.7 D 01/25/21 17:18: Lactate 0.9 01/26/21 06:32: WBC 8.3, RBC 3.54 L, Hgb 11.0 L, Hct 31.8 L, MCV 89.8, MCH 30.9, MCHC 34.4, RDW 13.0, Plt Count 211, MPV 7.9, Neut % (Auto) 72.7, Lymph % (Auto) 21.2, [place] % (Auto) 5.6, Eos % (Auto) 0.3, Baso % (Auto) 0.1, Neut # (Auto) 6.0, Lymph # (Auto) 1.8, [place] # (Auto) 0.5, Eos # (Auto) 0.0, Baso # (Auto) 0.0 01/26/21 06:32: Sodium 134 L, Potassium 3.0 L, Chloride 97 L, Carbon Dioxide 31 H, Anion Gap 9.0, BUN 3 L, Creatinine 0.50 L, Estimated Creat Clear 89, Estimated GFR 125, Est GFR ( Amer) 152, Glucose 115 H, Calcium 8.4 I & O for Last 24 hours: Intake & Output 01/23/21 01/24/21 01/25/21 01/26/21 11:59 11:59 11:59 11:59 Intake Total 1690 / 1690 300 / 300 Balance 1690 / 1690 300 / 300 Weight 211 lb 210 lb 15.718 oz Microbiology Reports for the Last 24 Hours: Microbiology 01/24/21 16:36 Urine,Clean Catch Urine Culture - Preliminary NO GROWTH AFTER 24 HOURS - Constitutional no acute distress, obese - *Routine HEENT Exam Head: Present: normocephalic Eye: Present: PERRL ENT: Present: mucous membranes moist - *Routine Neck Exam Present: supple. Absent: lymphadenopathy - *Routine Respiratory Exam Present: CTA bilaterally - *Routine Cardiovascular Exam Present: RRR - *Routine Abdominal Exam Present: soft, normoactive bowel sounds, tenderness - *Routine Extremities Exam Present: normal capillary refill. Absent: cyanosis, clubbing, edema - *Routine Skin Exam Present: warm. Absent: rash - *Routine Neurological Exam Present: alert, oriented X3 - Routine Psychiatric Exam Present: normal affect Assessment and Plan (1) Severe sepsis with acute organ dysfunction Status: Acute Category: Medical Code(s): A41.9 - Sepsis, unspecified organism; R65.20 - Severe sepsis without septic shock (2) Diverticulitis large intestine Status: Acute Qualifiers: Diverticulitis bleeding: without bleeding Diverticulitis complication: without perforation or abscess Qualified Code(s): K57.32 - Diverticulitis of large intestine without perforation or abscess without bleeding Category: Medical Code(s): K57.32 - Diverticulitis of large intestine without perforation or abscess without bleeding (3) Obesity (BMI 30.0-34.9) Status: Acute Category: Medical Code(s): E66.9 - Obesity, unspecified (4) Chronic low back pain Status: Chronic Qualifiers: Back pain laterality: unspecified Sciatica presence: without sciatica Qualified Code(s): M54.5 - Low back pain; G89.29 - Other chronic pain Category: Medical Code(s): M54.5 - Low back pain; G89.29 - Other chronic pain (5) Bipolar 1 disorder Status: Acute Category: Medical Code(s): F31.9 - Bipolar disorder, unspecified - Assessment and plan all Dx Assessment and Plan for all problems:: us gallbladder consult dr kishan dickson will round later today all orders per dr dickson
--- NOTE | 2021-01-26 09:19 | PC.NURSE ---
09 Pt leaving department with radiology. Pt voices I have to go home today. 914 Maribel Hicks APRN in department, notified of pts request to go home. Reports that Dr. Guerra will round this afternoon when he is finished in the office and will discuss discharge with pt at that time.
[2021-01-26 14:43] VITALS: BP 162/84; PULSE 75; RESP 17; TEMP 37.2; O2SAT 94
--- NOTE | 2021-01-26 16:01 | HMH.DCSUM ---
General - General Admission date:: 01/24/21 Discharge date: 01/26/21 HPI HPI: this pt presented to [facility] this am with abd pain and was started on meds for gastroenteritis and had progressive sx and returned and was seen in the ed- is is a 60-year-old female that presents with nausea vomiting diarrhea that began this morning. Antiemetics prescribed earlier in the [facility]. Patient reports watery diarrhea. No hematochezia or melena. No hematemesis. She also reports burning at the epigastrium. She denies any fever chills. Patient had continued sx despite ed treatment continues to have intractable vomiting despite multiple IV antiemetics. Routine lab work shows mildly elevated white count. CT of the abdomen pelvis shows mild thickening of the transverse and descending colon consistent with acute colitis/diverticulitis. As such patient be admitted for IV fluids and antibiotics. Hospital Course Hospital Course: Microbiology 01/24/21 16:36 Urine,Clean Catch Urine Culture - Preliminary NO GROWTH AFTER 24 HOURS Laboratory Tests 01/24/21 01/24/21 01/24/21 13:45 13:45 13:45 WBC 12.0 H RBC 4.03 L Hgb 12.4 Hct 37.2 MCV 92.3 MCH 30.7 MCHC 33.2 RDW 13.0 Plt Count 309 MPV 8.5 Neut % (Auto) 81.6 H Lymph % (Auto) 14.9 Gonzales % (Auto) 2.4 Eos % (Auto) 0.9 Baso % (Auto) 0.2 Neut # (Auto) 9.8 H Lymph # (Auto) 1.8 Gonzales # (Auto) 0.3 Eos # (Auto) 0.1 Baso # (Auto) 0.0 Sodium 137 Potassium 4.6 Chloride 96 L Carbon Dioxide 26 Anion Gap 19.6 H BUN 7 Creatinine 0.50 L Estimated Creat Clear 88 Estimated GFR 125 Est GFR ( Amer) 152 Glucose 125 H Lactate 3.4 H Calcium 9.9 Total Bilirubin 1.3 AST 63 H ALT 49 Alkaline Phosphatase 131 H Total Protein 8.6 H Albumin 5.1 H Globulin 3.5 H Albumin/Globulin Ratio 1.5 Lipase Urine Color Urine Appearance Urine pH Ur Specific [place] Urine Protein Urine Glucose (UA) Urine Ketones Urine Blood Urine Nitrate Urine Bilirubin Urine Urobilinogen Ur Leukocyte Esterase Urine WBC Ur Squamous Epith Cells Urine Bacteria SARS-CoV-2 (PCR) Influenza A Untype (PCR) Influenza Type B (PCR) 01/24/21 01/24/21 01/24/21 13:45 16:36 16:44 WBC RBC Hgb Hct MCV MCH MCHC RDW Plt Count MPV Neut % (Auto) Lymph % (Auto) Gonzales % (Auto) Eos % (Auto) Baso % (Auto) Neut # (Auto) Lymph # (Auto) Gonzales # (Auto) Eos # (Auto) Baso # (Auto) Sodium Potassium Chloride Carbon Dioxide Anion Gap BUN Creatinine Estimated Creat Clear Estimated GFR Est GFR ( Amer) Glucose Lactate Calcium Total Bilirubin AST ALT Alkaline Phosphatase Total Protein Albumin Globulin Albumin/Globulin Ratio Lipase 31 Urine Color Yellow Urine Appearance Sl cloudy Urine pH 7.0 Ur Specific [place] 1.010 Urine Protein Negative Urine Glucose (UA) Negative Urine Ketones Negative Urine Blood Negative Urine Nitrate Negative Urine Bilirubin Negative Urine Urobilinogen 0.2 Ur Leukocyte Esterase Negative Urine WBC 5-10 Ur Squamous Epith Cells 10-20 Urine Bacteria 3+ SARS-CoV-2 (PCR) Not detected Influenza A Untype (PCR) Not detected Influenza Type B (PCR) Not detected 01/25/21 01/25/21 01/25/21 17:18 17:18 17:18 WBC 10.3 RBC 3.75 L Hgb 11.4 L Hct 34.2 L MCV 91.2 MCH 30.4 MCHC 33.3 RDW 13.1 Plt Count 232 MPV 7.3 L Neut % (Auto) 73.0 Lymph % (Auto) 21.8 Gonzales % (Auto) 4.8 Eos % (Auto) 0.3 Baso % (Auto) 0.1 Neut # (Auto) 7.5 Lymph # (Auto) 2.2 Gonzales # (Auto) 0.5 Eos # (Auto) 0.0 Baso # (Auto) 0.0 Sodium 136 Potassium 3.0 L
--- NOTE | 2021-01-26 16:13 | HMH.CONS ---
*Admission Date: 01/24/21 *Reason for consult:: nausea/vomiting/epigastric pain *History of present illness: This is a 60-year-old female patient who has a history of IBS with constipation abdominal discomfort. She is also status post bariatric surgery 2 to 3 years ago at [facility]. She has not been back to see her surgeon since her initial follow-up with them a couple of years ago. She has also been having a lot of dyspepsia, nausea and even occasional vomiting for the past 3 to 6 months. A few days ago she developed an acute on chronic episode of severe nausea vomiting and diarrhea. She went to an urgent care, was diagnosed with acute gastroenteritis, and was treated with antiemetics. She was refractory to antiemetics and had persistent nausea and vomiting. She presented to the ER and was found to have a mild elevation in her WBCs at 12.0. CT scan showed mild colitis versus diverticulitis ascending and transverse colon, small hiatal hernia and diverticulosis in the distal colon. She was admitted for IV hydration and antiemetics as well as IV Levaquin and Flagyl. Since admission her WBCs are down to 8.3 and as of today she started to have improvement of her nausea and vomiting. She did have a gallbladder ultrasound that was unremarkable. The patient does have IBS with constipation and has not had a bowel movement since Tuesday. She is quite distended with gas bloat on exam. The patient recently had a colonoscopy with Dr. Steiner 08/2020 who found pandiverticulosis and grade 2 internal hemorrhoids status post ablation. He recommend she start MiraLAX Metamucil every day and the patient has been on that daily. She reports a daily bowel movement and feeling of full evacuation occasionally has some diarrhea. She has had nausea and vomiting off and on for about 3 to 6 months a couple of times per week. She does take omeprazole 40 mg daily but does not believe that that gives her much help. She does usually get relief from vomiting. This episode seemed different and that nothing made it better and vomiting did not give her improvement. [facility] History Medical History: Reports:: Anxiety, Chronic Obstructive Pulmonary Disease (COPD), Depression, Gastroesophageal Reflux Disease(GERD), Hyperlipidemia, Hypertension Denies:: Cancer, Diabetes Mellitus Type 1, Diabetes Mellitus Type 2, Internal Pacemaker, MRSA, Seizures *Have you ever received a pneumonia vaccine?: Yes *Have you received a flu vaccine this season?: Yes Other Medical History: Reports: Other. Denies: Blood Transfusion Reaction Laterality Cases: Left: Arthroscopy Knee, Right: Breast Biopsy, Lumpectomy Other Surgeries: Yes: No Previous Surgery, Bariatric Surgery, Colonoscopy, , EGD, Other. No: Pacemaker Amputation: No Fractures: Yes - *Social History Smoking Status: Former smoker Tobacco Type: cigarettes # Packs/Day (cigarettes): 0 #Yrs smoked (if former smoker): 40 Alcohol Intake: never Alcohol Intake Frequency:: other Substance Use Type: denies use *Occupational Status:: retired, disabled Housing: house Household Members: spouse *Travel in the last 8 weeks: None - Psychiatric History Pschychiatric History:: Reports:: Anxiety, Depression Family Hx:: No significant family history Review of Systems - Constitutional Denies anorexia, Denies fatigue, Denies fever(s) - Eyes Denies blurry vision, Denies change in vision - ENT Denies dry mouth, Denies difficulty swallowing, Denies hoarseness, Denies throat swelling - *Cardiovascular Denies chest pain, Denies shortness of breath - *Respiratory Denies chest congestion, Denies cough, Denies shortness of breath - *Gastrointestinal Reports abdominal pain, Reports bloating, Reports change in bowel habits, Reports nausea, Reports vomiting, Denies vomiting blood - *Musculoskeletal Denies abnormal walking, Denies muscle weakness, Denies numbness, Denies tingling - Integumentary/Breasts Denies changing lesions
--- NOTE | 2021-01-26 17:15 | PC.NURSE ---
1634 Discharge education provided to pt. Time provided for pt to ask questions, denies any questions or concerns. Pt is gathering her belongings and reports that her ride is on the way.
== END 2021-01-26 16:35 | disposition home or self-care (01) | DRG 391 ==
LOC: ER 16:37 → 2ND 01-25 07:23
PROVIDERS: Nurse Practitioner Family; Admitting Provider Family Medicine; Emergency Provider Emergency Medicine; PCP Emergency Medicine; Visit Provider Emergency Medicine
DX: A41.9 Sepsis, unspecified organism (principal); K57.32 Diverticulitis of large intestine without perforation or abscess without bleeding; R65.20 Severe sepsis without septic shock; J44.9 Chronic obstructive pulmonary disease, unspecified; E78.5 Hyperlipidemia, unspecified; Z87.891 Personal history of nicotine dependence; E66.9 Obesity, unspecified; Z68.36 Body mass index [BMI] 36.0-36.9, adult; M54.5 Low back pain; Z20.822 Contact with and (suspected) exposure to COVID-19; F31.9 Bipolar disorder, unspecified
CPT/HCPCS: 36415; 74177; 76705; 80048; 80053; 81001; 83605; 83690; 85025; 87086; 96365; 96375; 99202; 99282; G0463; J1956; J2405; Q9967; U0003

== ENCOUNTER 2021-02-25 13:24 | Emergency (ER) | payer MEDICAID, SELFPAY ==
[2021-02-25 13:24] VITALS: BP 139/76; PULSE 84; RESP 18; TEMP 36.8; O2SAT 95
[2021-02-25 13:25] VITALS: BP 139/76; PULSE 84; RESP 18; TEMP 36.8; O2SAT 95; BMI 36.7
--- NOTE | 2021-02-25 13:50 | PC.NURSE ---
Pt arrived in ER at 1300 and states that she feels fine with no reason to be seen. She took her pain medicine to close together. She took her prescribed pain med at 0600 and then 2 at noon due to her knee pain. pt is A&O at this time. She wants to sign out AMA. Pt verbalizes that she understand what happened and she will not be taking anymore of her pain medicine today. Instructed to come back the ER if she develops any soa, chest pain of other symptoms if needed.
== END 2021-02-25 13:26 | disposition left against medical advice (07) ==
PROVIDERS: Emergency Provider Emergency Medicine
DX: Z53.21 Procedure and treatment not carried out due to patient leaving prior to being seen by health care provider (principal)
CPT/HCPCS: 99211

== ENCOUNTER → 2021-04-15 08:26 | Outpatient (CLI) | payer MEDICAID, SELFPAY ==
--- NOTE | 2021-04-15 08:30 | XR_ITS ---
PROCEDURE: XR KNEE LT 4V CLINICAL INDICATION: LT knee pain COMPARISON: CR [id number] KNEE-4 OR 5 VIEWS-LT from 03/11/2015 FINDINGS: No fracture or dislocation. No lytic or blastic change. There is normal mineralization. There are mild osteoarthritic changes at the medial compartment which has slightly progressed since the previous exam Other findings:None. IMPRESSION: Mild osteoarthritis medial compartment slightly progressed Dictated by: Talon Akbar MD 04/15/2021 11:17 Talon Akbar MD in [facility] 04/15/2021 11:17
--- NOTE | 2021-04-15 08:30 | XR_ITS ---
PROCEDURE: XR HIP LT 2-3V W/PELVIS CLINICAL INDICATION: left hip pain COMPARISON: No exams were available for comparison FINDINGS: No fracture or dislocation is evident. No significant degenerative change. No lytic or blastic change. Unremarkable soft tissues. IMPRESSION: Negative left hip Dictated by: Talon Akbar MD 04/15/2021 11:18 Talon Akbar MD in [facility] 04/15/2021 11:18
== END ==
PROVIDERS: PCP Emergency Medicine; Visit Provider Orthopaedic Surgery
DX: M25.562 Pain in left knee (principal); M25.552 Pain in left hip
CPT/HCPCS: 73502; 73564

== ENCOUNTER → 2021-05-26 19:24 | Outpatient (CLI) | payer MEDICAID, SELFPAY ==
[2021-05-26 20:22] LABS: Amphetamine/Metha Screen,Urine Negative ng/ml (<1000)
[2021-05-26 20:23] LABS: Barbiturates Screen,Urine Negative ng/ml (<200)
[2021-05-26 20:24] LABS: Benzodiazepines Screen,Urine Negative ng/ml (<200); Cannabinoid Screen,Urine Negative ng/ml (<50)
[2021-05-26 20:25] LABS: Cocaine Screen,Urine Negative ng/ml (<300)
[2021-05-26 20:26] LABS: Methadone Screen,Urine Negative ng/ml (<300); Phencyclidine Screen,Urine Negative ng/ml (<25)
[2021-05-26 20:27] LABS: Opiate Screen,Urine Positive ng/ml (<300)
== END ==
PROVIDERS: Visit Provider Emergency Medicine
DX: Z79.899 Other long term (current) drug therapy (principal)
CPT/HCPCS: 80305

== ENCOUNTER → 2021-06-19 15:36 | Outpatient (CLI) | payer MEDICAID, SELFPAY | PROVIDERS: PCP Emergency Medicine; Visit Provider Specialist | DX: R68.89 Other general symptoms and signs (principal); R41.3 Other amnesia ==

== ENCOUNTER → 2021-06-23 09:14 | Outpatient (CLI) | payer MEDICAID, SELFPAY ==
--- NOTE | 2021-06-23 09:15 | CA_ITS ---
APPROVED REPORT EXAM: Comprehensive 2D, Doppler, and color-flow Echocardiogram Colon And Rectal Surgeon: Katiana Montgomery, KYUNG, RVS Ht: 5 ft 5 in Wt: 23lbs BSA: 0.79 BP: 121/49 mmHg Indications: Preop clearance, COPD, Obeisity, HTN, HLD, exSmoker 2D Dimensions LVDs 3.67 cm LA Volume 72.30 mL LVOT 2.08 cm (M/F) 1.5-2.5 LA Volume Index [id number] mL/m2 (M/F) 16-34 M-Mode Dimensions RVDd 2.89 cm (0.9-2.6) LA Diam 3.61 cm (1.9-4.0) LVDd 4.86 cm (3.5-5.7) Ao Diam 3.49 cm (2.0-3.7) LVDs 3.09 cm (3.5-5.7) IVSd 0.92 cm (0.6-1.1) PWd 0.96 cm (0.6-1.1) EF (Teich) 66.00% EPSs 0.36 cm FS 36.40% EDV (Teich) 110.70 mL TAPSE 1.72 (<1.7) ESV (Teich) 37.60 mL LV Diastology E Decel Time 283.00 (160-240 msec) E/A Ratio 0.81 MED E' 6.40 (< 7 cm/sec) MED A' 8.30 cm/s E'/MED E' Ratio 10.59 (>14) LAT E' 5.50 (<10 cm/sec) LAT A' 11.50 cm/s E/LAT E' Ratio 12.33 (>14) Aortic Valve LVOT Max 118.00 (70-110 cm/s) LVOT VTI 21.75 cm AoV Peak Saul. 122.00 (50-130 cm/s) AO Peak GR. 6.00 mmHg AO Mean GR. 2.90 (<5 mmHg) AO VTI 22.55 (18-25 cm) ESTHELA (VTI) 3.28 (2.5-4.5 cm2) Mitral Valve MV A Velocity 84.00 (40-130 cm/s) E/A Ratio 0.81 MV Decel. Time 283.00 (160-240 ms) MV Mean Gr. 1.70 (<2mmHg) Pulmonary Valve PV Peak Velocity 103.00 (50-150 cm/s) GA End VMAX 119.00 cm/s Tricuspid Valve TR P. Velocity 240.00 cm/s RAP Estimate 10.00 mmHg RVSP 33.10 mmHg Left Ventricle Left atrium is mildly enlarged, left ventricle is normal size, mild concentric left ventricular hypertrophy, visually estimated ejection fraction 55% with no obvious regional wall motion abnormality, grade 1 diastolic dysfunction seen without tissue Doppler evidence of raise left atrial pressure. Right Ventricle Right atrium and right ventricle mildly enlarged with normal contractility. Aortic Valve Aortic valve is minimally thickened and fibrosed, there is no aortic stenosis or aortic insufficiency. Mitral Valve Mitral valve grossly normal, there is trace mitral regurgitation. Tricuspid Valve Tricuspid valve grossly normal, there is trace tricuspid regurgitation, tricuspid regurgitation jet velocity is inadequate for calculation of the right ventricular systolic pressure. Pulmonic Valve Pulmonic valve is poorly visualized. Great Vessels Aortic root is normal size. Inferior vena cava is normal size with normal inspiratory collapse. Pericardium No significant pericardial effusion noted. Conclusion 1. Mild biatrial enlargement, normal left ventricular size, mild concentric left ventricular hypertrophy, visually estimated ejection fraction 55% with no regional wall motion abnormality, grade 1 diastolic dysfunction seen without tissue Doppler evidence of raise left atrial pressure. 2. Mildly enlarged right ventricle with normal contractility. 3. Trace mitral and tricuspid regurgitation. 4. No significant pericardial effusion noted 5. Inferior vena cava is normal size with normal inspiratory collapse. Electronically signed by : Juancarlos Zacarias MD 06/23/2021 19:17:03
== END ==
PROVIDERS: PCP Emergency Medicine; Visit Provider Physician Assistant
DX: I10 Essential (primary) hypertension (principal); Z01.810 Encounter for preprocedural cardiovascular examination
CPT/HCPCS: 93306

== ENCOUNTER → 2021-06-24 09:34 | Outpatient (CLI) | payer MEDICAID, SELFPAY | PROVIDERS: PCP Emergency Medicine; Visit Provider Specialist | DX: R68.89 Other general symptoms and signs (principal); F41.9 Anxiety disorder, unspecified; F32.A Depression, unspecified | CPT/HCPCS: 95816 ==

== ENCOUNTER → 2021-11-07 13:12 | Outpatient (CLI) | payer MEDICAID, SELFPAY ==
--- NOTE | 2021-11-07 13:20 | XR_ITS ---
PROCEDURE INFORMATION: Exam: XR Right Ribs Exam date and time: 11/07/2021 1:18 PM Age: 60 years old Clinical indication: Injury or trauma; Fall; Blunt trauma (contusions or hematomas); Injury date: 11/05/21; Injury details: Lower rib pain at 9-10th rib area TECHNIQUE: Imaging protocol: XR Right ribs. Views: 2 views. COMPARISON: CR XR CHEST 2V 11/07/2021 1:16 PM FINDINGS: Bones/joints: Old/healed fractures to the lateral segments of the 5th, 6th, and 7th ribs. Displaced fracture of the right 10th rib appears acute. No other acutely displaced fractures are identified. There is no evidence of joint dislocation. No aggressive osseous lesions. Soft tissues: There is no significant soft tissue swelling. Visualized chest is unremarkable. IMPRESSION: 1. Acute displaced fracture of the lateral segment of the right 10th rib. 2. Old/healed right rib fractures, as detailed above.
--- NOTE | 2021-11-07 13:20 | XR_ITS ---
PROCEDURE INFORMATION: Exam: XR Thoracic Spine Exam date and time: 11/07/2021 1:13 PM Age: 60 years old Clinical indication: Injury or trauma; Fall; Blunt trauma (contusions or hematomas); Injury date: 11/05/21; Injury details: Fell hanging curtains TECHNIQUE: Imaging protocol: XR of the thoracic spine. Views: 3 views. COMPARISON: CT ABDOMEN PELVIS W CON 01/24/2021 3:41 PM FINDINGS: Bones/joints: No acute skeletal pathology. Mild multilevel degenerative changes of the spine, as manifested by multilevel anterior osteophytes and multilevel decrease in intervertebral disc space. No aggressive osseous lesions. The spinal canal is patent. Soft tissues: There is no significant soft tissue swelling. Other findings: There is no evidence of acutely displaced fractures. There is no evidence of joint dislocation. Visualized chest is unremarkable. IMPRESSION: No acute posttraumatic injury to the thoracic spine is noted.
--- NOTE | 2021-11-07 13:20 | XR_ITS ---
PROCEDURE INFORMATION: Exam: XR Chest Exam date and time: 11/07/2021 1:16 PM Age: 60 years old Clinical indication: Injury or trauma; Fall; Blunt trauma (contusions or hematomas); Injury date: 11/05/21 TECHNIQUE: Imaging protocol: XR of the chest. Views: 2 views. COMPARISON: 1. CHESTWO CT chest wo con 11/17/2018 7:46 AM 2. CR XR chest 2V 10/30/2018 10:49 AM FINDINGS: Airway: Patent Lungs: Stable 2 mm calcified granuloma in the right mid lung. No acute interstitial or airspace disease. Pleural spaces: Unremarkable. No pleural effusion. No pneumothorax. Heart/Mediastinum: Unremarkable. No cardiomegaly. Bones/joints: Multilevel old/healed left rib fractures are appreciated. No acute skeletal abnormality or aggressive osseous lesion. IMPRESSION: No acute thoracic pathology.
== END ==
PROVIDERS: PCP Emergency Medicine; Visit Provider Emergency Medicine
DX: R07.89 Other chest pain (principal); M54.6 Pain in thoracic spine; W19.XXXA Unspecified fall, initial encounter
CPT/HCPCS: 71046; 71100; 72072

== ENCOUNTER → 2022-01-13 12:17 | Outpatient (CLI) | payer MEDICAID, SELFPAY ==
--- NOTE | 2022-01-13 12:21 | XR_ITS ---
FINAL REPORT CLINICAL HISTORY: knee pain COMPARISON: April 15, 2021 FINDINGS: LEFT KNEE: 4 views of the left knee obtained. There is no acute fracture or dislocation. There is mild degenerative change. There is mild medial compartment joint space narrowing. There is no soft tissue abnormality. IMPRESSION: No acute fracture. Stable exam. Reviewed, Interpreted and Dictated by Stan Verdin III, MD Transcribed by Ami Delvalle Authenticated and [facility]
== END ==
PROVIDERS: PCP Emergency Medicine; Visit Provider Orthopaedic Surgery
DX: M25.562 Pain in left knee (principal)
CPT/HCPCS: 73564

== ENCOUNTER → 2022-03-15 09:24 | Outpatient (CLI) | payer MEDICAID, SELFPAY | PROVIDERS: PCP Emergency Medicine; Visit Provider Internal Medicine | DX: Z01.812 Encounter for preprocedural laboratory examination (principal); Z20.822 Contact with and (suspected) exposure to COVID-19; Z13.810 Encounter for screening for upper gastrointestinal disorder | CPT/HCPCS: C9803; U0003; U0005 ==

== ENCOUNTER 2022-03-17 07:48 | Day surgery (SDC) | payer MEDICAID, SELFPAY ==
[2022-03-11 13:58] VITALS: BMI 31.6
[2022-03-17 08:07] VITALS: BP 126/63; PULSE 80; RESP 17; TEMP 36.3; O2SAT 98
--- NOTE | 2022-03-17 08:25 | P.PN_ITS ---
[facility] Anesthesia Checklist - Patient Identification Patient Identification: Arm Band - Structural Data Admitted From: Home Planned Operative Procedure/s: EGD Consent for Planned Operative Procedure(s) Verified: Yes - NPO Status Verified Time NPO: 00:00 - Additional verifications Anesthesia Reactions: No Hx Blood Transfusions: No Blood Transfusion Reaction: No - Airway Assessment C-Spine Mobility Assessed: Yes TMJ Mobility Assessed: Yes Dentition: Poor Dentition - Neurological Assessment Level of Consciousness: Awake Hx Seizures: No Numbness or tingling in extremities: No - Anesthesia Plan Anesthesia Risk discussed: Yes Anesthesia Plan: Verified ASA Class: III Anesthesia Type: MAC [facility] History I have reviewed the patient's past medical history: Yes Medical History: Reports:: Anxiety, Chronic Obstructive Pulmonary Disease (COPD), Depression, Gastroesophageal Reflux Disease(GERD), Hyperlipidemia, Hypertension Denies:: Cancer, Diabetes Mellitus Type 1, Diabetes Mellitus Type 2, Internal Pacemaker, MRSA, Seizures *Have you ever received a pneumonia vaccine?: Yes *Have you received a flu vaccine this season?: Yes Other Medical History: Reports: Arthritis, Other. Denies: Blood Transfusion Reaction Anesthesia experience/problems:: None Laterality Cases: Left: Arthroscopy Knee, Right: Breast Biopsy, Lumpectomy Other Surgeries: Yes: No Previous Surgery, Bariatric Surgery, Colonoscopy, C- section, EGD, Other. No: Pacemaker Amputation: No Fractures: Yes - *Social History Smoking Status: Former smoker # Packs/Day (cigarettes): 0 #Yrs smoked (if former smoker): 40 Alcohol Intake: never Alcohol Intake Frequency:: other Substance Use Type: denies use *Occupational Status:: disabled Housing: house Household Members: spouse *Travel in the last 8 weeks: None - Psychiatric History Pschychiatric History:: Reports:: Anxiety, Depression Family Hx:: No significant family history
[2022-03-17 09:06] VITALS: O2SAT 98
--- NOTE | 2022-03-17 09:18 | HMH.SCOPE ---
- Procedure: Date: 03/17/22 Patient Date of :: 1960 Procedure Performed:: EGD Indications:: The patient is a 61 year old here for evaluation of GERD. Symptom has been worse since having had gastric sleeve surgery. She has intermittent dysphagia symptom Performing Provider:: Brady Luu MD Referring Provider:: Ton Guerra MD Sedation:: See RN notes Procedure:: The gastroscope was gently passed through the incisoral orifice into the oral cavity and under direct visualization the esophagus was intubated. The endoscope was passed down the esophagus, through the stomach, and into the duodenum. Color, texture, mucosa, and anatomy of the esophagus, stomach, and duodenum were carefully examined with the scope. Findings:: Oropharynx: normal Esophagus: normal. Benign appearing narrowing at distal esophagus. Biopsies obtained. Dilatation performed with 54F bougie dilator EG Junction: intact at 37 cm Cardia: Small hiatal hernia. Flat polyp lesion 4-5 mm in size. Removed with cold forceps Fundus: normal Body: Gastritis. Biopsies obtained Antrum: Gastritis. Biopsies obtained Duodenal bulb: normal Duodenum (second and third portion): normal Impression: 1. polyp in cardia of stomach 2. gastritis 3. small hiatal hernia 4. mild benign appearing narrowing of distal esophagus Recommendations:: Await pathology results Increase omeprazole to 40 mg two times per day Can use pepcid 20-40 mg 1-2 times per day if needed Complications:: None Estimated blood obtained (mL): 0
[2022-03-17 09:19] VITALS: BP 96/57; PULSE 89; RESP 18; TEMP 36.3; O2SAT 99
[2022-03-17 09:29] VITALS: BP 117/65; PULSE 90; RESP 18; TEMP 36.3; O2SAT 94
[2022-03-17 09:39] VITALS: BP 118/50; PULSE 86; RESP 18; TEMP 36.3; O2SAT 96
[2022-03-17 09:57] VITALS: BP 118/50; PULSE 86; RESP 18; TEMP 36.3; O2SAT 96
== END 2022-03-17 09:57 | disposition home or self-care (01) ==
LOC: OUTP 07:49
PROVIDERS: PCP Emergency Medicine; Visit Provider Internal Medicine
PROC: 0DJ08ZZ Inspection of Upper Intestinal Tract, Via Natural or Artificial Opening Endoscopic (ICD-10-PCS; CPT 43235; principal; 2022-03-17 09:00)
DX: K21.9 Gastro-esophageal reflux disease without esophagitis (principal); R13.10 Dysphagia, unspecified; K22.81 Esophageal polyp
CPT/HCPCS: 43239; 43248

== ENCOUNTER → 2022-06-01 09:22 | Outpatient (CLI) | payer MEDICAID, SELFPAY ==
--- NOTE | 2022-06-01 09:26 | XR_ITS ---
FINAL REPORT CLINICAL HISTORY: pain, worse in the heel FINDINGS: RIGHT ANKLE Three views demonstrate no acute fracture or dislocation. There is possible talocalcaneal fusion. Mild and moderate degenerative changes are noted. No acute soft tissue abnormality is seen. IMPRESSION: Possible talocalcaneal fusion. If indicated, CT could better evaluate. Reviewed, Interpreted and Dictated by Stan Verdin III, MD Transcribed by Hattie Rosa Authenticated and [facility]
--- NOTE | 2022-06-01 09:26 | XR_ITS ---
FINAL REPORT CLINICAL HISTORY: pain, worse in heel FINDINGS: RIGHT FOOT 3 views were obtained. There is a probable subacute fracture of the proximal 3rd metatarsal. There is questionable talocalcaneal fusion versus projection. There are [id number] degenerative changes. There is no soft tissue abnormality. IMPRESSION: Possible talocalcaneal fusion versus projection. Probable subacute fracture of the proximal 3rd metatarsal. If indicated, CT could better evaluate. Reviewed, Interpreted and Dictated by Stan Verdin III, MD Transcribed by Hattie Rosa Authenticated and [facility]
== END ==
PROVIDERS: PCP Emergency Medicine; Visit Provider Podiatrist
DX: M79.671 Pain in right foot (principal); M25.571 Pain in right ankle and joints of right foot
CPT/HCPCS: 73610; 73630

== ENCOUNTER → 2022-08-04 11:24 | Outpatient (CLI) | payer MEDICAID, SELFPAY ==
[2022-08-03 15:52] LABS: Amphetamine/Metha Screen,Urine Negative ng/ml (<1000)
[2022-08-03 15:53] LABS: Barbiturates Screen,Urine Negative ng/ml (<200)
[2022-08-03 15:54] LABS: Benzodiazepines Screen,Urine Negative ng/ml (<200)
[2022-08-03 15:55] LABS: Cannabinoid Screen,Urine Negative ng/ml (<50); Cocaine Screen,Urine Negative ng/ml (<300)
[2022-08-03 15:56] LABS: Methadone Screen,Urine Negative ng/ml (<300)
[2022-08-03 15:57] LABS: Opiate Screen,Urine Positive ng/ml (<300); Phencyclidine Screen,Urine Negative ng/ml (<25)
== END ==
PROVIDERS: PCP Emergency Medicine; Visit Provider Emergency Medicine
DX: Z79.899 Other long term (current) drug therapy (principal)
CPT/HCPCS: 80305

== ENCOUNTER → 2022-10-01 15:28 | Outpatient (CLI) | payer OTHER, SELFPAY ==
[2022-10-01 14:51] LABS: Amphetamine/Metha Screen,Urine Negative ng/ml (<1000)
[2022-10-01 14:52] LABS: Barbiturates Screen,Urine Negative ng/ml (<200)
[2022-10-01 14:53] LABS: Benzodiazepines Screen,Urine Negative ng/ml (<200); Cannabinoid Screen,Urine Negative ng/ml (<50)
[2022-10-01 14:54] LABS: Cocaine Screen,Urine Negative ng/ml (<300); Methadone Screen,Urine Negative ng/ml (<300)
[2022-10-01 14:55] LABS: Opiate Screen,Urine Positive ng/ml (<300)
[2022-10-01 14:56] LABS: Phencyclidine Screen,Urine Negative ng/ml (<25)
== END ==
PROVIDERS: PCP Emergency Medicine; Visit Provider Emergency Medicine
DX: Z79.899 Other long term (current) drug therapy (principal)
CPT/HCPCS: 80305

== ENCOUNTER → 2022-10-05 08:51 | Outpatient (CLI) | payer OTHER, SELFPAY ==
[2022-10-05 09:52] LABS: Basophils % 0.4 % (0.1-2.0); Eosinophils # 0.1 K/mm3 (0.0-0.4); Eosinophils % 1.2 % (0.1-12.0); Hematocrit 35.3 % (37.0-47.0); Hemoglobin 11.4 g/dL (12.2-16.2); Lymphocytes # 2.4 K/mm3 (0.7-4.5); Lymphocytes % 33.8 % (10-50); Mean Corpuscular HGB Conc 32.2 g/dL (31.8-35.4); Mean Corpuscular Hemoglobin 33.6 pg (27.0-31.2); Mean Corpuscular Volume 104.3 fl (81-99); Mean Platelet Volume 7.4 fl (7.4-10.4); Monocytes # 0.5 K/mm3 (0.1-1.0); Monocytes % 7.1 % (1.7-9.3); Neutrophils # 4.1 K/mm3 (1.8-7.8); Neutrophils % 57.5 % (37.0-80.0); Platelet Count 326 K/mm3 (142-424); Red Blood Count 3.39 M/mm3 (4.20-5.40); Red Cell Distribution Width 13.3 % (11.5-17.5); White Blood Count 7.2 K/mm3 (4.8-10.8)
[2022-10-05 10:09] LABS: Alanine Aminotransferase 75 U/L (12-78); Albumin Level 4.1 g/dl (3.5-5.0); Albumin/Globulin Ratio 1.5 (1.1-1.8); Alkaline Phosphatase 171 U/L (38-126); Anion Gap 4.7 mEq/L (5-15); Aspartate Amino Transferase 71 U/L (14-36); Bilirubin,Total 0.8 mg/dl (0.2-1.3); Blood Urea Nitrogen 20 mg/dl (7-17); Calcium 9.2 mg/dl (8.4-10.2); Carbon Dioxide 36 mmol/L (22.0-30.0); Chloride 93 mmol/L (98-107); Cholesterol 214 mg/dl (140-200); Estimated Glomerular Filt Rate 73 ml/min (>60); GFR (African American) 88 ML/MIN (>60); Globulin 2.7 g/dL (1.3-3.2); Glucose 107 mg/dl (74-100); Potassium 4.7 mmoL/L (3.5-5.1); Sodium 129 mmol/L (136-145); Total Protein,Serum 6.8 g/dl (6.3-8.2); Triglycerides 170 mg/dl (30-150); VLDL Cholesterol 34 mg/dL (0-40)
[2022-10-05 10:16] LABS: Chol/HDL Ratio 1.4 (1-3.5); HDL Cholesterol 152 mg/dl (40-60)
[2022-10-05 10:19] LABS: Direct LDL Cholesterol 47.11 mg/dL (100-129)
[2022-10-05 10:24] LABS: 25-OH Vitamin D, Total 36.9 ng/mL (30-100); Free T4 (Free Thyroxine) 1.03 ng/dl (0.78-2.19)
[2022-10-05 10:39] LABS: Thyroid Stimulating Hormone 0.76 uIU/mL (0.465-4.68)
== END ==
PROVIDERS: PCP Emergency Medicine; Visit Provider Emergency Medicine
DX: R53.83 Other fatigue (principal); J44.9 Chronic obstructive pulmonary disease, unspecified; R10.9 Unspecified abdominal pain; I10 Essential (primary) hypertension; R11.10 Vomiting, unspecified; E66.9 Obesity, unspecified; Z68.30 Body mass index [BMI] 30.0-30.9, adult
CPT/HCPCS: 36415; 80053; 80061; 82306; 84439; 84443; 85025

== ENCOUNTER → 2022-10-08 09:25 | Outpatient (CLI) | payer OTHER, SELFPAY ==
--- NOTE | 2022-10-08 09:44 | ECG_ITS ---
APPROVED REPORT Exam: Resting ECG HR:76 bpm ECG Measurements Heart Rate 76 AXES AL 159 P 56 QRSd 84 QRS 10 QT 368 T 29 QTc 398 Conclusion SINUS RHYTHM LOW QRS VOLTAGE IN PRECORDIAL LEADS [QRS DEFLECTION < 1.0 mV IN CHEST LEADS] BORDERLINE ECG UNCONFIRMED REPORT Electronically signed by : Eliu Roy MD 10/08/2022 15:49:54
--- NOTE | 2022-10-08 09:51 | XR_ITS ---
FINAL REPORT CLINICAL HISTORY: preop, htn COMPARISON: 11/07/2021 FINDINGS: PA and lateral views of the chest were obtained. The cardiac and mediastinal silhouettes are within normal limits. The lungs are clear. There is no pleural effusion or pneumothorax. No acute osseous abnormality is identified. IMPRESSION: No radiographic evidence of acute cardiac or pulmonary disease. Reviewed, Interpreted and Dictated by Poppy Harley MD Transcribed by Ami Delvalle Authenticated and . [facility]
== END ==
PROVIDERS: PCP Emergency Medicine; Visit Provider Orthopaedic Surgery
DX: Z01.818 Encounter for other preprocedural examination (principal)
CPT/HCPCS: 71046; 93005

== ENCOUNTER → 2022-10-12 07:29 | Outpatient (CLI) | payer OTHER, SELFPAY ==
--- NOTE | 2022-10-12 07:42 | US_ITS ---
FINAL REPORT CLINICAL HISTORY: abd pain FINDINGS: Sonographic images of the right upper quadrant were obtained. The pancreas is partially obscured.The liver has an unremarkable appearance.The gallbladder appears normal without evidence of gallstones.There is no evidence of biliary ductal dilatation.The common duct measures 2 mm. Limited images of the right kidney are unremarkable. IMPRESSION: Unremarkable right upper quadrant ultrasound. Reviewed, Interpreted and Dictated by Stan Verdin III, MD Transcribed by Sanaz Wolfe Authenticated and [facility]
[2022-10-12 08:21] LABS: Iron 185 ug/dL (37-170)
[2022-10-12 08:30] LABS: Total Iron Binding Capacity 390 ug/dL (265-497)
[2022-10-12 08:56] LABS: Ferritin 183 ng/ml (11.1-264)
[2022-10-16 02:29] LABS: Hep A Ab, IgM Negative; Hepatitis B Core Antibody IgM Negative; Hepatitis B Surface Antigen Negative; Hepatitis C Antibody Non Reactive
== END ==
PROVIDERS: PCP Emergency Medicine; Visit Provider Emergency Medicine
DX: R10.9 Unspecified abdominal pain (principal); D64.9 Anemia, unspecified
CPT/HCPCS: 36415; 76705; 80074; 82728; 83540; 83550

== ENCOUNTER 2022-10-19 09:04 | Emergency (ER) | payer OTHER, SELFPAY ==
[2022-10-19 09:08] VITALS: BMI 37.1
--- NOTE | 2022-10-19 09:08 | XR_ITS ---
FINAL REPORT CLINICAL HISTORY: FALL, lateral foot pain COMPARISON: 06/01/2022 FINDINGS: RIGHT FOOT Three views of the right foot demonstrate no acute fracture or dislocation. There are mild degenerative changes. The soft tissues are unremarkable. IMPRESSION: Mild degenerative changes with no acute bony abnormality. Reviewed, Interpreted and Dictated by Stan Verdin III, MD Transcribed by Yolanda Leigh Authenticated and [facility]
[2022-10-19 09:15] VITALS: BP 150/76; PULSE 76; RESP 21; TEMP 36.8; O2SAT 94; BMI 32.5
--- NOTE | 2022-10-19 09:41 | EXP.UTC ---
Discharge Plan Disposition Patient Disposition: Home, Self-Care Condition: Good Prescriptions Prescriptions: No Action diclofenac sodium 1 % gel See Rx Instructions .ROUTE .COMPLEX Qty: 100 2RF Dose Instruction: apply 4 grams topically TO THE affected area(s) FOUR TIMES DAILY NEEDED FOR PAIN -- FOR EXTERNAL USE ONLY-- Rx Instructions: apply 4 grams topically TO THE affected area(s) FOUR TIMES DAILY NEEDED FOR PAIN -- FOR EXTERNAL USE ONLY-- mupirocin 2 % ointment 1 applic topical BID Qty: 15 0RF oxycodone-acetaminophen [Percocet] 10-325 mg tablet 1 tab PO TID Qty: 90 0RF urea 40 % cream 1 applic topical BID Qty: 60 3RF sucralfate [Carafate] 1 gram tablet 1 gm PO QACHS Qty: 120 2RF oxycodone 5 mg tablet 5 mg PO BID PRN (Reason: breakthrough pain) Qty: 14 0RF Ozempic 0.25 mg or 0.5 mg(2 mg/1.5 mL) pen injector See Rx Instructions .ROUTE .COMPLEX Qty: 1.5 2RF Dose Instruction: INJECT 0.25 MG ONCE WEEKLY FOR four WEEKS THEN increase TO 0.5 MG ONCE WEEKLY thereafter Rx Instructions: INJECT 0.25 MG ONCE WEEKLY FOR four WEEKS THEN increase TO 0.5 MG ONCE WEEKLY thereafter nitrofurantoin monohyd/m-cryst [Macrobid] 100 mg capsule 100 mg PO BID 10 Days Qty: 20 0RF Rx Instructions: must administer with a meal/food hydrochlorothiazide 12.5 mg capsule 12.5 mg PO DAILY PRN (Reason: fluid retention) Qty: 90 0RF escitalopram oxalate 10 mg tablet See Rx Instructions .ROUTE .COMPLEX Qty: 90 2RF Dose Instruction: TAKE ONE TABLET BY MOUTH EVERY DAY Rx Instructions: TAKE ONE TABLET BY MOUTH EVERY DAY lisinopril 20 mg tablet See Rx Instructions .ROUTE .COMPLEX Qty: 90 2RF Dose Instruction: TAKE ONE TABLET BY MOUTH EVERY DAY AT BEDTIME Rx Instructions: TAKE ONE TABLET BY MOUTH EVERY DAY AT BEDTIME ondansetron 4 mg tablet,disintegrating 4 mg PO Q8H PRN (Reason: nausea and vomiting) Qty: 30 2RF Stiolto Respimat 2.5-2.5 mcg/actuation mist See Rx Instructions .ROUTE .COMPLEX Qty: 4 2RF Dose Instruction: INHALE TWO PUFFS BY MOUTH EVERY DAY Rx Instructions: INHALE TWO PUFFS BY MOUTH EVERY DAY atorvastatin 10 mg tablet See Rx Instructions .Route .COMPLEX Qty: 90 0RF Rx Instructions: TAKE ONE TABLET BY MOUTH EVERY DAY lidocaine 5 % adhesive patch,medicated 1 patch topical DAILY Qty: 30 3RF Rx Instructions: leave on most painful area for up to 12 hrs bupropion HCl 150 MG tablet sustained-release 12 hr See Rx Instructions .Route .COMPLEX Rx Instructions: TAKE ONE TABLET BY MOUTH TWICE DAILY carvedilol 12.5 MG tablet See Rx Instructions .Route .COMPLEX Rx Instructions: TAKE ONE TABLET BY MOUTH TWICE DAILY omeprazole 40 MG capsule,delayed release(DR/EC) See Rx Instructions .Route .COMPLEX Rx Instructions: TAKE ONE CAPSULE BY MOUTH EVERY DAY risperidone 2 MG tablet See Rx Instructions .Route .COMPLEX Rx Instructions: TAKE ONE TABLET BY MOUTH EVERY DAY AT BEDTIME lisinopril 10 MG tablet See Rx Instructions .Route .COMPLEX Rx Instructions: TAKE ONE TABLET BY MOUTH EVERY DAY IN THE MORNING ergocalciferol (vitamin D2) 1,250 MCG capsule See Rx Instructions .Route .COMPLEX Rx Instructions: TAKE ONE CAPSULE BY MOUTH EVERY 2 WEEKS cholecalciferol (vitamin D3) 25 MCG tablet See Rx Instructions .Route .COMPLEX Rx Instructions: TAKE ONE TABLET BY MOUTH EVERY DAY Referrals Follow up/Referrals: Ton Guerra MD [Primary Care Provider] - See instructions Activity Restrictions/Add. Instructions Additional Instructions/Restrictions: *weight bearing as tolerated *RICE, Rest the extremity, Ice 15-20 minutes 3-4 times daily, Compress- wear the ozzy wrap as discussed as much as possible to help reduce swelling and pain, Elevate the extremity when at rest *Wear your Walking Boot is for support and help
[2022-10-19 10:31] VITALS: BP 150/76; PULSE 76; RESP 21; TEMP 36.8; O2SAT 94
== END 2022-10-19 10:39 | disposition home or self-care (01) ==
PROVIDERS: Emergency Provider Nurse Practitioner; PCP Emergency Medicine
DX: S93.601A Unspecified sprain of right foot, initial encounter (principal); W01.0XXA Fall on same level from slipping, tripping and stumbling without subsequent striking against object, initial encounter
CPT/HCPCS: 73630; 99212; 99213; G0463

== ENCOUNTER 2022-10-26 07:41 | Observation (INO) | payer OTHER, SELFPAY ==
--- NOTE | 2022-10-20 15:14 | SW/DCPLANNER ---
Addendum entered by Milagro Fine 10/21/22 15:36: I called and spoke with patient today regarding discharge plans: patient stated that she will have family/friends that will be able to stay with her once medically stable for discharge after surgery. Patient also stated that she would have transportation to [facility] for outpatient after discharge. Original Note: I called and spoke with this patient regarding plans after knee surgery on 10/26/22. Patient state that she resides at home alone with limited assistance. I discussed the discharge plans of: returning home with family/friend assistance and returning to [facility] for outpatient rehab services vs placement at [facility] OR local facility under [facility] pending. I did explain in full to patient the requirements of [facility] pending including must stay 30 days plus payment is monthly income minus $40. 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 Patient stated that she will speak with friends/family regarding assistance. Patient also understands that she is not a candidate for home health services due to insurance. I informed patient that I will be calling back tomorrow regarding discharge plans after she is able to speak with friends/family.
[2022-10-25 10:08] VITALS: BMI 31.6
[2022-10-26] VITALS (24 sets, daily range): BP systolic 98–166; BP diastolic 60–93; PULSE 81–104; RESP 12–20; TEMP 36.4–43; O2SAT 91–97; BMI 34.2
[2022-10-26 06:28] LABS: Coronavirus 19, PCR Not Detected (NotDetected); Influenza A, PCR Not Detected (NotDetected); Influenza B, PCR Not Detected (NotDetected)
--- NOTE | 2022-10-26 07:18 | EXP.ANES.CKL ---
[facility] Disclaimer: The information contained in this section may have been updated after the patient was seen, as this information can be updated by other users. Medical History Anxiety COPD (chronic obstructive pulmonary disease) Depression GERD (gastroesophageal reflux disease) Hyperlipidemia Hypertension Vitamin D deficiency (~09/28/17) Surgical History H/O arthroscopy of left knee H/O breast biopsy H/O lumpectomy History of colonoscopy Family History Other No significant family history Social History Smoking Status: Former smoker pack-years: 40 second hand exposure: No alcohol intake: never substance use type: denies use current occupational status: disabled Travel in the last 8 weeks: None household members: spouse housing: house current occupational exposures/hazards: No caffeine: Yes [facility] Anesthesia Checklist Patient Identification Patient Identification: Arm Band and Verbal (Name & ) Structural Data Admitted From: Home Planned Operative Procedure/s: Total knee Consent for Planned Operative Procedure(s) Verified: Yes NPO Status Verified Time NPO: 00:00 Chart Verification Results Verified: CBC Additional verifications Anesthesia Reactions: No Hx Blood Transfusions: No Blood Transfusion Reaction: No Airway Assessment C-Spine Mobility Assessed: Yes TMJ Mobility Assessed: Yes Dentition: Good Dentition Neurological Assessment Level of Consciousness: Awake Hx Seizures: No Numbness or tingling in extremities: No Anesthesia Plan Anesthesia Risk discussed: Yes Anesthesia Plan: Verified ASA Class: III Anesthesia Type: General w/block
--- NOTE | 2022-10-26 09:17 | EXP.OP.NOTE ---
Date of procedure: 10/26/22 Pre-op Diagnosis:: Left knee osteoarthritis Post-op Diagnosis:: Left knee osteoarthritis Procedure performed:: Left total knee arthroplasty Surgeon:: Fred Ivey MD [place]ite Man(s):: MANJIT Polanco CHIEF ENGINEER'S HELPER:: Oscar Martinez Anesthesia: GETA, regional and local Estimated blood loss (mL): 5 Clinical Note:: Reva is a pleasant 61-year-old female with activity limiting knee pain secondary to osteoarthritis. X-rays revealed severe tricompartmental degenerative changes in a varus knee with complete loss of medial joint space. She has failed exhaustive conservative treatment measures. We discussed all the risks, benefits and alternatives to left total knee arthroplasty and she agreed to proceed. Surgical consent form was signed. Operative findings:: Left knee severe tricompartmental degenerative changes with varus deformity. Operative note:: The patient was seen in the preoperative holding area. The left knee was marked to confirm the correct operative site. They were seen by anesthesia. She received clindamycin 900 mg IV prophylactic antibiotics within 1 hour of incision time and also received TXA just prior to the incision and as were closing to help minimize bleeding. She was brought back to the OR. She refused spinal anesthesia so general was performed without difficulty. All of her bony prominences were well-padded and a bump was placed underneath the left hip. Nonsterile tourniquet applied to the left thigh. Left lower extremity was prepped and draped in the usual sterile fashion. Timeout performed to confirm left total knee arthroplasty for patient Reva Suresh. The left lower extremity was exsanguinated with an Esmarch. Tourniquet inflated to 300 mgHg. With the knee flexed a midline incision made with a 10 blade scalpel. Full-thickness medial and lateral flaps elevated. Medial parapatellar arthrotomy was then made. Patella was everted. Patellar fat pad and anterior femoral fat pads were excised. Marginal osteophytes removed. Medial release was performed using the Bovie electrocautery. Z retractors placed medially and laterally. The distal femur was then drilled and an intramedullary distal femoral cutting was pinned in place set at a 5 degree valgus cut for a 1 cm distal cut. This cut was made with oscillating saw. The femur was then sized to a size 4 set at 3 degrees of external rotation. 4-in-1 cutting guide was pinned in place. The anterior and posterior cuts were made as well as the chamfer cuts. We then turned our attention to the tibia. The tibia subluxed anteriorly. PCL retractor was placed as were medial and lateral Hohmann retractors. Using the extramedullary tibial cutting guide set at a 3 degree posterior slope for the proximal tibial cut we pinned this in place to excise about 5 mm of bone from the low medial side and a centimeter from the high lateral side. Medial and lateral menisci were then excised as were osteophytes. With a 9 mm block flexion-extension gaps were checked we achieved full extension and flexion with excellent alignment. Tibia was then sized to a size 2 tibial tray centered off the medial third of the tibial tubercle. The tray was pinned in place. Tibial fins were impacted. We then trialed with a size 4 femur. We made the box cut with the reamer and punch. We then trialed with a size 4 femur, 9 poly and 2 tibia. With these components in place we achieved full extension and flexion with excellent alignment and stability. We then turned our attention to the patella. Patella was sized to 22 mm in thickness we made a 9 mm patellar cut with reciprocal saw. We made the drill holes for a 29 button and a 29 trial button was placed. There was excellent patellar tracking. Trial components were removed. Final components opened the back table. Posterior capsule was injected with 20 cc of half percent ropivacaine and 5 mg of morphine. Cement was mixed on the back table. Roxana
--- NOTE | 2022-10-26 09:27 | EXP.ANES.I ---
[facility] Anesthesia Record Part I Anesthesia Record I Intake, IV Amount: 700 Estimated blood loss (mL): 5 Urine output (mL): 0 Blood Pressure: 166/93 SaO2: 93 Pulse Rate: 92 Respiratory Rate: 13 Temperature: 97.7 F Patient is:: Awake Stable to PACU at:: 09:24
--- NOTE | 2022-10-26 09:30 | XR_ITS ---
FINAL REPORT CLINICAL HISTORY: TKA COMPARISON: 01/13/2022 FINDINGS: LEFT KNEE Two views of the left knee were obtained. There is a total joint prosthesis. There is a questionable vertical linear lucency in the medial tibial metaphysis which could represent a subtle nondisplaced fracture. There is extensive gas in the soft tissues which is consistent with recent surgery. IMPRESSION: Questionable vertical linear lucency in the medial tibial metaphysis could represent a subtle nondisplaced fracture. Recommend follow-up radiographs. Reviewed, Interpreted and Dictated by Ilir Lund MD Transcribed by Yolanda Leigh Authenticated and [facility]
--- NOTE | 2022-10-26 09:45 | EXP.HP ---
History of Present Illness *Admission Date: 10/26/22 *Reason for visit:: left knee replacement *History of present illness: 61-year-old female who presented to [facility] today as an outpatient for left knee total joint arthroplasty. History of primary osteoarthritis of left knee. Chronic pain. Medical history also includes diabetes, COPD, anxiety, hypertension. No longer smokes. Currently states pain is okay, continuing home regimen at this time. Tolerated lunch without difficulty. No chest pain, shortness of breath, nausea, vomiting. Tolerated procedure well without complication. Discussed case with orthopedics after procedure. After arriving to the floor, evaluated the patient. She overall states she feels well, was having a lot of difficulty with mobility because of pain. Has had previous procedures including gel injections and steroid injections which were no longer providing any benefit. Electively move forward with left knee replacement. [facility] Disclaimer: The information contained in this section may have been updated after the patient was seen, as this information can be updated by other users. Medical History Anxiety COPD (chronic obstructive pulmonary disease) Depression GERD (gastroesophageal reflux disease) Hyperlipidemia Hypertension Vitamin D deficiency (~09/28/17) Surgical History H/O arthroscopy of left knee H/O breast biopsy H/O lumpectomy History of colonoscopy Family History No significant family history Social History Smoking Status: Former smoker pack-years: 40 second hand exposure: No alcohol intake: never substance use type: denies use current occupational status: disabled Travel in the last 8 weeks: None household members: spouse housing: house current occupational exposures/hazards: No caffeine: Yes Review of Systems Review of Systems Review of systems (narrative): 14 point review of systems performed, pertinent positives and negatives as per HPI Meds Home Medications and Allergies Home Medications Medication Instructions Recorded Confirmed Type bupropion HCl 150 mg tablet,12 hr 150 mg PO BID mood 03/17/22 10/26/22 History sustained-release carvedilol 12.5 mg tablet 12.5 mg PO BID High blood pressure 03/17/22 10/26/22 History cholecalciferol (vitamin D3) 25 25 mcg PO DAILY Supplement 03/17/22 10/26/22 History mcg (1,000 unit) tablet ergocalciferol (vitamin D2) 1,250 1,250 mcg PO DIRECTED Supplement 03/17/22 10/26/22 History mcg (50,000 unit) capsule lisinopril 10 mg tablet 10 mg PO AM High blood pressure 03/17/22 10/26/22 History omeprazole 40 mg capsule,delayed 40 mg PO DAILY Acid reflux 03/17/22 10/26/22 History release risperidone 2 mg tablet 2 mg PO HS Mood 03/17/22 10/26/22 History escitalopram oxalate 10 mg tablet 10 mg PO DAILY Depression 10/25/22 10/26/22 History lidocaine 5 % topical patch 1 patch topical DAILY Pain 10/25/22 10/26/22 History lisinopril 20 mg tablet 20 mg PO HS Blood pressure 10/25/22 10/26/22 History oxycodone-acetaminophen 10 mg-325 1 tab PO TID Pain 10/25/22 10/26/22 History mg tablet (Percocet) semaglutide 0.25 mg or 0.5 mg (2 0.5 mg SQ WEEKLY Weight loss 10/25/22 10/26/22 History mg/1.5 mL) subcutaneous pen injector (Ozempic) tiotropium 2.5 mcg-olodaterol 2.5 2 puff inhalation DAILY copd 10/25/22 10/26/22 History mcg/actuation mist for inhalation (Stiolto Respimat) atorvastatin 10 mg tablet 10 mg PO DAILY Cholesterol 10/26/22 10/26/22 History hydrochlorothiazide 12.5 mg capsule 12.5 mg PO DAILY PRN Fluid overload 10/26/22 10/26/22 History oxycodone 5 mg tablet 5 mg PO Q4H PRN pain #30 tabs 10/26/22 10/26/22 Rx New Prescriptions to Start Prescriptions: Allergies Allergy
[2022-10-26 10:10] LABS: Basophils % 0.5 % (0.1-2.0); Eosinophils # 0.2 K/mm3 (0.0-0.4); Eosinophils % 2.1 % (0.1-12.0); Hematocrit 34.6 % (37.0-47.0); Hemoglobin 11.1 g/dL (12.2-16.2); Lymphocytes # 1.5 K/mm3 (0.7-4.5); Lymphocytes % 15.8 % (10-50); Mean Corpuscular HGB Conc 32.1 g/dL (31.8-35.4); Mean Corpuscular Hemoglobin 33.4 pg (27.0-31.2); Mean Corpuscular Volume 104.2 fl (81-99); Mean Platelet Volume 8.6 fl (7.4-10.4); Monocytes # 0.3 K/mm3 (0.1-1.0); Monocytes % 3.3 % (1.7-9.3); Neutrophils # 7.4 K/mm3 (1.8-7.8); Neutrophils % 78.4 % (37.0-80.0); Platelet Count 195 K/mm3 (142-424); Red Blood Count 3.32 M/mm3 (4.20-5.40); White Blood Count 9.4 K/mm3 (4.8-10.8)
[2022-10-26 10:19] LABS: Chloride 96 mmol/L (98-107); Sodium 134 mmol/L (136-145)
[2022-10-26 10:20] LABS: Potassium 4.9 mmoL/L (3.5-5.1)
[2022-10-26 10:22] LABS: Blood Urea Nitrogen 12 mg/dl (7-17); Creatinine Clearance Estimated 79 mL/min (50-200); Estimated Glomerular Filt Rate 125 ml/min (>60); GFR (African American) 151 ML/MIN (>60)
[2022-10-26 10:23] LABS: Anion Gap 10.9 mEq/L (5-15); Calcium 8.6 mg/dl (8.4-10.2); Carbon Dioxide 32 mmol/L (22.0-30.0); Glucose 110 mg/dl (74-100)
--- NOTE | 2022-10-26 10:48 | P.PNANES_ITS ---
[facility] Anesthesia Record Part II Anesthesia Record Part II Discharge Time: 10:14 Destination: Medical Surgical Department PACU nurse assessment reviewed?: Yes Patient Condition:: Good Anesthesia Complications:: None Swallowing reflex intact?: Yes Cyanosis?: No Blood Pressure: 133/77 Pulse Rate: 90 Temperature: 97.7 F Mental Status: Alert & Oriented Pain level:: 0 Nausea and/or vomitting:: None Intake, IV Amount: 0
[2022-10-26 11:21] LABS: Hemoglobin A1C 4.4 % (4.0-6.0)
--- NOTE | 2022-10-26 12:01 | HMH.PHAINT1 ---
Pharmacy Intervention Comments: Reconciled patient's medications using pharmacy fill list, provider notes, and interview with patient
--- NOTE | 2022-10-26 13:53 | HMH.PTEV ---
Physical Therapy Evaluation Rehab PT IP Evaluation Start: 10/26/22 09:28 Freq: ONCE Status: Active Protocol: Document 10/26/22 13:48 WES (Rec: 10/26/22 13:53 [place] [id number]) Subjective/History History History 61 yowf adm to [facility] with L knee OA now S/P L TKA. She reports she lives with SO, but he is not home most of the time. She has 4 steps to enter the home and is generally independent with all mobility without an AD. She does already have a cane, RW, and w/c available for use at home. Subjective Subjective Currently she c/o pain in the L LE as expected post surgery. Rehab PT IP Eval Objective Appearance Patient Behavior Appropriate Patient Orientation Person,Place,Time Difficulty following instructions none Speech Pattern Clear Ambulation Patient Able to Ambulate Yes Ambulation Observation IP General Gait Pattern Observation Antalgic Gait,Decrease Stride Lngth (R),Decrease Stride Lngth (L) Ambulation Distance (feet) 5 Ambulation Assistive Device Rolling Walker Ambulation Ability Minimal x 2 (25% assist) Balance Ability to Arise Able, uses arms to help Sitting Balance Steady, safe Standing Balance Steady, wide stance Dynamic Sitting Balance Ability Good Dynamic Standing Balance Ability Fair Transfers Bed Transfer Ability Minimal x 1 (25% assist) Chair Transfer Ability Minimal x 1 (25% assist) Sit to Stand Bed Transfer Ability Minimal x 1 (25% assist) Sit to Stand Chair Transfer Ability Minimal x 1 (25% assist) Rehab PT IP prob,goals,plan Problems Date of Evaluation: 10/26/22 PT IP Problems Bed Mobility,Transfers,Gait Rehab Potential Rehab Potential Good Plan PT Intervention Plan Bed Mobility,Transfers,Gait, Therapeutic Exercise PT Plan Frequency BID Duration LOS Discharge Goals Bed Transfer Ability Contact Guard/Hand Hold Sit to Stand Chair Transfer Ability Contact Guard/Hand Hold Ambulation Assistive Device Rolling Walker Ambulation Distance (feet) 20 Discharge Plan PT Discharge Plan Pt is currently appropriate to return home once medically stable, recommend home health vs outpatient PT as approp
--- NOTE | 2022-10-26 13:53 | HMH.OTEV ---
OT Inpatient Evaluation Rehab OT IP Evaluation Start: 10/26/22 09:28 Freq: ONCE Status: Active Protocol: Document 10/26/22 13:43 IFRAH (Rec: 10/26/22 13:53 IFRAH [id number]) Rehab OT IP Assessment Subjective History 61-year-old female who presented to [facility] today as an outpatient for left knee total joint arthroplasty. History of primary osteoarthritis of left knee. Chronic pain. Medical history also includes diabetes, COPD, anxiety, hypertension. No longer smokes. Currently states pain is okay, continuing home regimen at this time. Tolerated lunch without difficulty. No chest pain, shortness of breath, nausea, vomiting. Tolerated procedure well without complication. Discussed case with orthopedics after procedure. After arriving to the floor, evaluated the patient. She overall states she feels well, was having a lot of difficulty with mobility because of pain. Has had previous procedures including gel injections and steroid injections which were no longer providing any benefit. Electively move forward with left knee replacement. Patient lives in [address] [place] with 4 BERTHA. Patient independent with ADLs and fx'l mobility prior to surgery. Patient has a caregiver at home as needed. Patient stated to have AE/devices of RW, cane and w/c at home as needed . Subjective I can try to get up. Instructed Patient on proper hand and foot placement to complete supine->sit @ EOB requiring Mod A. Patient demonstrated good dynamic
--- NOTE | 2022-10-26 18:05 | PC.NURSE ---
A&OX4. TOLERATING 3LNC WELL (WEARS AT HOME.) PT HAS C/O INTERMITTENT PAIN TO L KNEE, TX PER OCT. PT HAS BEEN VERY GOOD AT MOVING HERSELF IN THE BED AND AMBULATING WITH WALKER. X1 STANDBY ASSIST. USING BEDSIDE COMMODE. NO OTHER NEEDS THUS FAR. POLAR PACK IN PLACE TO L KNEE. VSS.
[2022-10-27] VITALS: BP 136/66; PULSE 89; RESP 18; TEMP 36.4; O2SAT 96
[2022-10-27 04:00] VITALS: BP 114/66; PULSE 73; RESP 18; TEMP 36.9; O2SAT 97; BMI 34.8
--- NOTE | 2022-10-27 06:35 | PC.NURSE ---
Pt medicated PRN per MAR for left knee pain this shift. Polar jerson to left knee, ice in canister changed. Slight edema to left leg. Peripheral pulses 2+ strength. Pt remains on 2L NC, tolerating well. Voids per BSC with 1 person assist. Call light within reach.
[2022-10-27 06:50] LABS: Anion Gap 6.3 mEq/L (5-15); Blood Urea Nitrogen 14 mg/dl (7-17); Carbon Dioxide 36 mmol/L (22.0-30.0); Chloride 93 mmol/L (98-107); Creatinine Clearance Estimated 87 mL/min (50-200); Estimated Glomerular Filt Rate 101 ml/min (>60); GFR (African American) 123 ML/MIN (>60); Glucose 105 mg/dl (74-100); Potassium 4.3 mmoL/L (3.5-5.1); Sodium 131 mmol/L (136-145)
[2022-10-27 07:13] LABS: Basophils % 0.3 % (0.1-2.0); Eosinophils % 0.3 % (0.1-12.0); Hematocrit 27.7 % (37.0-47.0); Lymphocytes % 12.7 % (10-50); Mean Corpuscular HGB Conc 31.1 g/dL (31.8-35.4); Mean Corpuscular Hemoglobin 32.6 pg (27.0-31.2); Mean Corpuscular Volume 104.8 fl (81-99); Mean Platelet Volume 7.9 fl (7.4-10.4); Monocytes # 0.4 K/mm3 (0.1-1.0); Monocytes % 4.6 % (1.7-9.3); Neutrophils # 6.6 K/mm3 (1.8-7.8); Neutrophils % 82.1 % (37.0-80.0); Platelet Count 172 K/mm3 (142-424); Red Blood Count 2.64 M/mm3 (4.20-5.40); Red Cell Distribution Width 12.8 % (11.5-17.5)
[2022-10-27 07:16] LABS: Hemoglobin 8.6 g/dL (12.2-16.2)
[2022-10-27 08:00] VITALS: BP 112/47; PULSE 104; RESP 16; TEMP 36.5; O2SAT 100
--- NOTE | 2022-10-27 09:59 | EXP.DC.SUM ---
General Admission date:: 10/26/22 Discharge date: 10/27/22 HPI HPI HPI: 61-year-old female who presented to [facility] today as an outpatient for left knee total joint arthroplasty. History of primary osteoarthritis of left knee. Chronic pain. Medical history also includes diabetes, COPD, anxiety, hypertension. No longer smokes. Currently states pain is okay, continuing home regimen at this time. Tolerated lunch without difficulty. No chest pain, shortness of breath, nausea, vomiting. Tolerated procedure well without complication. Discussed case with orthopedics after procedure. After arriving to the floor, evaluated the patient. She overall states she feels well, was having a lot of difficulty with mobility because of pain. Has had previous procedures including gel injections and steroid injections which were no longer providing any benefit. Electively move forward with left knee replacement. Hospital Course Hospital Course Hospital Course: 61-year-old female with multiple comorbidities, status post left TKA.? Admitted for observation.? PT and OT consulted.? Initiated aspirin for DVT prophylaxis.? Anticipate discharge home in the coming days with outpatient therapy. Left knee chronic pain Primary osteoarthritis of left knee Status post left TKA -Orthopedics consulted, appreciate their recommendations.? Left knee replaced without complication. Continue to follow along during admission. Recommend aspirin 325 daily for DVT prophylaxis for 4 weeks postop. Continue rest, ice, elevation. Pain meds as needed. Patient currently on 10 mg oxycodone 3-4 times a day at home. Continue this regimen. PT and OT consulted during admission, patient did very well. Stable to discharge home with her caregiver. We will plan for outpatient therapy in the coming days. Close follow-up with orthopedics in 2 weeks for repeat x-rays and wound inspection. Diabetes -On Ozempic at home, initiated on SSI and fingersticks ACHS while admitted. Resume home regimen at discharge. A1c 4.4 during admission. Recommend reevaluating diabetes regimen as outpatient given her extremely adequate control. Defer further management to PCP. Hypertension: Continue home regimen of carvedilol 12.5 mg twice daily, Lipitor 10 mg daily, lisinopril 30 mg total daily Anxiety/depression: Continue Lexapro and bupropion per home regimen. Risperdal for sleep at night per home regimen Stable for discharge home. Requiring 2 L nasal cannula oxygen on day of discharge. This is not uncommon for patient as she wears oxygen intermittently at home and nightly. Exam Data for Last 24 hours Vital signs and Labs for Last 24 Hours: Temp Pulse Resp BP Pulse Ox FiO2 97.7 F 104 H 16 112/47 L 100 32 10/27/22 08:00 10/27/22 08:00 10/27/22 08:00 10/27/22 08:00 10/27/22 08:00 10/26/22 17:39 Laboratory Results - last 24 hr 10/26/22 10:04: WBC 9.4, RBC 3.32 L, Hgb 11.1 L, Hct 34.6 L, MCV 104.2 H, MCH 33.4 H, MCHC 32.1, RDW 13.0, Plt Count 195, MPV 8.6, Neut % (Auto) 78.4, Lymph % (Auto) 15.8, Lipscomb % (Auto) 3.3, Eos % (Auto) 2.1, Baso % (Auto) 0.5, Neut # (Auto) 7.4, Lymph # (Auto) 1.5, [place]comb # (Auto) 0.3, Eos # (Auto) 0.2, Baso # (Auto) 0.0 10/26/22 10:04: Sodium 134 L, Potassium 4.9, Chloride 96 L, Carbon Dioxide 32 H, Anion Gap 10.9, BUN 12, Creatinine 0.50 L, Estimated Creat Clear 79, Estimated GFR 125, Est GFR ( Amer) 151, Glucose 110 H, Calcium 8.6 10/26/22 10:04: Hemoglobin A1c 4.4 10/27/22 05:48: WBC 8.0, RBC 2.64 L, Hgb 8.6 L D, Hct 27.7 L, MCV 104.8 H, MCH 32.6 H, MCHC 31.1 L, RDW 12.8, Plt Count 172, MPV 7.9, Neut % (Auto) 82.1 H, Lymph % (Auto) 12.7, Lipscomb % (Auto) 4.6, Eos % (Auto) 0.3, Baso % (Auto) 0.3, Neut # (Auto) 6.6, Lymph # (Auto) 1.0, Lipscomb # (Auto) 0.4, Eos # (Auto) 0.0, Baso # (Auto) 0.0 10/27/22 05:48: Sodium 131 L, Potassium 4.3, Chloride 93 L, Carbon Dioxide 36 H, Anion Gap 6.3, BUN 14, Creatinine 0.60, Estimated Creat Clear 87, Estimated G
--- NOTE | 2022-10-27 10:11 | EXP.ORTH.PN ---
Subjective *Date: 10/27/22 *Time: 10:00 Interval history: Reva is a 61-year-old female patient who underwent an uneventful left primary total knee replacement performed by Dr. Ivey yesterday 10/26/2022. Today the patient is postop day #1. This morning the patient is sitting comfortably in chair at the bedside. She reports some left knee pain as to be expected but states it is well controlled with as needed pain medication and rest. She reports that she was able to ambulate yesterday and this morning with the assistance of physical therapy and a walker and that this has been going well. No history of any distal tingling/numbness, fevers, chills, or rigors. She reports that she is eating and drinking well denies any episodes of nausea or vomiting. She denies any other symptoms or concerns at this time Ortho Exam (Inpt) Vital signs and Labs for Last 24 Hours: Temp Pulse Resp BP Pulse Ox FiO2 97.7 F 104 H 16 112/47 L 100 32 10/27/22 08:00 10/27/22 08:00 10/27/22 08:00 10/27/22 08:00 10/27/22 08:00 10/26/22 17:39 Laboratory Results - last 24 hr 10/26/22 10:04: Sodium 134 L, Potassium 4.9, Chloride 96 L, Carbon Dioxide 32 H, Anion Gap 10.9, BUN 12, Creatinine 0.50 L, Estimated Creat Clear 79, Estimated GFR 125, Est GFR ( Amer) 151, Glucose 110 H, Calcium 8.6 10/26/22 10:04: Hemoglobin A1c 4.4 10/27/22 05:48: WBC 8.0, RBC 2.64 L, Hgb 8.6 L D, Hct 27.7 L, MCV 104.8 H, MCH 32.6 H, MCHC 31.1 L, RDW 12.8, Plt Count 172, MPV 7.9, Neut % (Auto) 82.1 H, Lymph % (Auto) 12.7, [place] % (Auto) 4.6, Eos % (Auto) 0.3, Baso % (Auto) 0.3, Neut # (Auto) 6.6, Lymph # (Auto) 1.0, [place] # (Auto) 0.4, Eos # (Auto) 0.0, Baso # (Auto) 0.0 10/27/22 05:48: Sodium 131 L, Potassium 4.3, Chloride 93 L, Carbon Dioxide 36 H, Anion Gap 6.3, BUN 14, Creatinine 0.60, Estimated Creat Clear 87, Estimated GFR 101, Est GFR ( Amer) 123, Glucose 105 H, Calcium 8.0 L I & O for Labs for Last 24 Hours: Intake & Output 10/24/22 10/25/22 10/26/22 10/27/22 23:59 23:59 23:59 23:59 Intake Total 1560 / 1680 600 / 600 Output Total 1000 / 1000 300 / 300 Balance 560 / 680 300 / 300 Weight 190 lb 206 lb 209 lb Head: Present normocephalic and atraumatic Eyes: Present as per HPI ENT: Present normal exam Neck: Present normal inspection, full ROM and trachea midline; Absent lymphadenopathy Respiratory: Present normal respiratory effort, able to speak in complete sentences and symmetric chest movement; Absent accessory muscle use Cardiac: Present Reg Rate and Rhythm GI: Present soft; Absent tenderness Comment:: Upon examination of the left knee: Dressings present are clean, dry, and intact. Out of the dressings, the surgical incision appears healthy and is healing well. No erythema, induration, drainage, there is a Dermabond Prineo skin closure system in place. Thigh and calf are soft nontender; Homans' sign is negative. No clinical evidence of DVT or compartment syndrome noted. Posterior tibial pulse 1+; capillary refill is brisk. Sensation to light touch is grossly intact throughout. Patient is actively mobilizing the foot, ankle, and toes. Diagnostic imaging: Postoperative x-ray performed at [facility] on 10/26/2022 reviewed along with radiologist report and compared to previous imaging. X-ray of the left knee demonstrates a total knee arthroplasty with orthopedic components in satisfactory alignment and fixation. No evidence of orthopedic complications noted. Skin: Present intact, warm and normal turgor; Absent cyanosis, erythema, lesions or jaundice Neuro: Present Cranial Nerve 2-12 Intact, Motor Function Intact, Sensory Function Intact, alert, awake, oriented x 3, tone normal and moves all extremities; Absent Numbness or Tingling Assessment and Plan *Assessment and plan (1) Status post left knee replacement: Status: Acute Category: Surgical Code(s): Z96.652 - Presence of left artificial knee joint Plan I have dis
[2022-10-27 11:50] VITALS: BP 115/79; PULSE 80; RESP 18; TEMP 36.8; O2SAT 95
--- NOTE | 2022-10-28 13:45 | CARE MANAGER ---
Called and spoke with Ms. Suresh, who confirmed that she is aware of f/u appts. She stated that she is doing well. No complaints or concerns at time of call.
== END 2022-10-27 13:00 | disposition home or self-care (01) ==
LOC: 2ND 11:53
PROVIDERS: Orthopaedic Surgery; Admitting Provider Family Medicine; PCP Emergency Medicine; Visit Provider Internal Medicine Adolescent Medicine
PROC: (CPT 27447; principal; 2022-10-26 07:30)
DX: M17.12 Unilateral primary osteoarthritis, left knee (principal); E11.9 Type 2 diabetes mellitus without complications; I10 Essential (primary) hypertension; E78.2 Mixed hyperlipidemia; J43.9 Emphysema, unspecified; M25.562 Pain in left knee; G89.29 Other chronic pain; E66.9 Obesity, unspecified; Z68.34 Body mass index [BMI] 34.0-34.9, adult; E55.9 Vitamin D deficiency, unspecified; Z79.899 Other long term (current) drug therapy; Z87.891 Personal history of nicotine dependence
CPT/HCPCS: 27447; 36415; 73560; 80048; 83036; 85025; 94760; 96374; 97116; 97162; 97165; 97530; C1713; C1776; C9803; G0378; J0131; J2405; U0003; U0005

== ENCOUNTER → 2022-11-10 14:41 | Outpatient (CLI) | payer OTHER, SELFPAY ==
--- NOTE | 2022-11-10 14:44 | XR_ITS ---
FINAL REPORT CLINICAL HISTORY: s/p lt knee replacement COMPARISON: 10/26/2022 FINDINGS: Left knee Three views were obtained. There is no acute fracture or dislocation. The previously noted subcutaneous emphysema has resolved. There is mild soft tissue edema anterior to the patella measuring 1.3 cm. Total joint prosthesis is present in anatomic alignment. IMPRESSION: Postsurgical change as above. Reviewed, Interpreted and Dictated by Ilir Lund MD Transcribed by Sanaz Wolfe Authenticated and [facility]
== END ==
PROVIDERS: PCP Emergency Medicine; Visit Provider Orthopaedic Surgery
DX: M25.562 Pain in left knee (principal); Z96.652 Presence of left artificial knee joint
CPT/HCPCS: 73560

== ENCOUNTER → 2022-12-08 14:21 | Outpatient (CLI) | payer OTHER, SELFPAY ==
--- NOTE | 2022-12-08 14:28 | XR_ITS ---
FINAL REPORT CLINICAL HISTORY: left knee pain COMPARISON: 11/10/2022 FINDINGS: Left knee Three views were obtained. There is no acute fracture or dislocation. The patient is status post total joint prosthesis. No soft tissue abnormality is identified. IMPRESSION: No acute process. Reviewed, Interpreted and Dictated by Ilir Lund MD Transcribed by Sanaz Wolfe Authenticated and [facility]
== END ==
PROVIDERS: PCP Emergency Medicine; Visit Provider Orthopaedic Surgery
DX: M25.562 Pain in left knee (principal); Z96.652 Presence of left artificial knee joint
CPT/HCPCS: 73562

== ENCOUNTER 2022-12-10 08:00 | Outpatient (RCR) | payer OTHER, SELFPAY ==
--- NOTE | 2022-12-02 09:13 | HMH.RHREAS ---
Rehab Reassessment Rehab OP Re-assessment Start: 12/02/22 09:04 Freq: Status: Active Protocol: Document 12/02/22 09:04 JOSE F (Rec: 12/02/22 09:13 JOSE F [id number]) E-signed By Edmond Mohamud, PT Rehab Re-assessment Subjective Subjective Patient reports 70% improvement since start of care. Objective Objective Notes PROM: R knee flx 126; ext -3 AROM: R knee 121; ext -1 MMT: 4+/5 grossly except R glute 4/5 Pain: currently 2/10; at worst over past week 12/15 Neuro: WNL Assessment Progress Assessment Progressing as Expected Assessment Notes Patient has made significant improvements as noted above. She continues to perist with slight AROM/MMT deficits. Patient would benefit from continuing with skilled PT services in order to adress functional limitation with all standing/ambulatory activities. Patient goals met STG's Goals Not Met LTG's Revised Goals NA Plan Plan Continue with current POC. Add in some challenging proprioceptive activities. Frequency of Therapy 2xweek Duration of therapy 4 weeks Time and Billing Re-Eval Time 14 Re-Eval Billing Units 1 PHYSICIAN CERTIFICATION: I certify the specified therapy services for Reva Suresh are required, authorized, and reviewed every 30 days.
== END 2022-12-10 08:05 | disposition home or self-care (01) ==
LOC: PT 08:00
PROVIDERS: PCP Emergency Medicine; Visit Provider Orthopaedic Surgery
DX: M25.562 Pain in left knee (principal); Z96.652 Presence of left artificial knee joint
CPT/HCPCS: 97014; 97016; 97110; 97140; 97163; 97164; 97530; G0283

== ENCOUNTER → 2023-01-07 10:03 | Outpatient (CLI) | payer OTHER, SELFPAY ==
[2023-01-07 19:21] LABS: Amphetamine/Metha Screen,Urine Negative ng/ml (<1000)
[2023-01-07 19:22] LABS: Barbiturates Screen,Urine Negative ng/ml (<200)
[2023-01-07 19:23] LABS: Benzodiazepines Screen,Urine Negative ng/ml (<200)
[2023-01-07 19:24] LABS: Cannabinoid Screen,Urine Negative ng/ml (<50); Cocaine Screen,Urine Negative ng/ml (<300)
[2023-01-07 19:27] LABS: Methadone Screen,Urine Negative ng/ml (<300)
[2023-01-07 19:28] LABS: Opiate Screen,Urine Positive ng/ml (<300); Phencyclidine Screen,Urine Negative ng/ml (<25)
== END ==
PROVIDERS: PCP Emergency Medicine; Visit Provider Emergency Medicine
DX: G89.29 Other chronic pain (principal)
CPT/HCPCS: 80305

== ENCOUNTER → 2023-01-12 08:05 | Outpatient (CLI) | payer OTHER, SELFPAY ==
--- NOTE | 2023-01-12 08:08 | XR_ITS ---
FINAL REPORT CLINICAL HISTORY: lt knee pain COMPARISON: None FINDINGS: LEFT KNEE 3 views of the left knee were obtained. Post arthroplasty changes are noted in the knee joint. The hardware is unremarkable in appearance. A joint effusion is present. There is no acute fracture or dislocation. Soft tissues are unremarkable. IMPRESSION: Post arthroplasty changes in the left knee, hardware appears unremarkable Joint effusion present. Reviewed, Interpreted and Dictated by Josefina Ibanez MD Transcribed by Sonia Green Authenticated and [facility]
== END ==
PROVIDERS: PCP Emergency Medicine; Visit Provider Orthopaedic Surgery
DX: M25.562 Pain in left knee (principal); Z96.652 Presence of left artificial knee joint
CPT/HCPCS: 73562

== ENCOUNTER → 2023-03-07 10:18 | Outpatient (CLI) | payer OTHER, SELFPAY ==
[2023-03-07 10:54] LABS: Basophils % 0.3 % (0.1-2.0); Eosinophils # 0.2 K/mm3 (0.0-0.4); Eosinophils % 2.4 % (0.1-12.0); Hematocrit 37.1 % (37.0-47.0); Hemoglobin 11.9 g/dL (12.2-16.2); Lymphocytes # 2.3 K/mm3 (0.7-4.5); Lymphocytes % 32.9 % (10-50); Mean Corpuscular HGB Conc 31.9 g/dL (31.8-35.4); Mean Corpuscular Hemoglobin 32.8 pg (27.0-31.2); Mean Corpuscular Volume 102.8 fl (81-99); Mean Platelet Volume 7.4 fl (7.4-10.4); Monocytes # 0.5 K/mm3 (0.1-1.0); Monocytes % 7.4 % (1.7-9.3); Platelet Count 175 K/mm3 (142-424); Red Blood Count 3.61 M/mm3 (4.20-5.40); Red Cell Distribution Width 12.5 % (11.5-17.5)
== END ==
PROVIDERS: PCP Emergency Medicine; Visit Provider Emergency Medicine
DX: D64.9 Anemia, unspecified (principal)
CPT/HCPCS: 36415; 85025

== ENCOUNTER → 2023-04-13 08:35 | Outpatient (CLI) | payer OTHER, SELFPAY ==
--- NOTE | 2023-04-13 08:38 | XR_ITS ---
FINAL REPORT CLINICAL HISTORY: Left tka f/u COMPARISON: 01/12/2023 FINDINGS: RIGHT KNEE: 4 views of the right knee obtained. Prior total knee arthroplasty. There is no acute fracture or dislocation. Small joint effusion. There is no soft tissue abnormality. IMPRESSION: No acute process. Prior total knee arthroplasty with intact hardware. Reviewed, Interpreted and Dictated by Stan Verdin III, MD Transcribed by Ami Delvalle Authenticated and [facility]
--- NOTE | 2023-04-13 09:19 | XR_ITS ---
FINAL REPORT CLINICAL HISTORY: right knee injury COMPARISON: None FINDINGS: Three views of the right knee reveal no evidence of fracture or dislocation. The bony alignment is normal. The joint spaces are preserved. There is no evidence of joint effusion. No localized soft tissue abnormality is identified. IMPRESSION: No acute abnormality identified. Reviewed, Interpreted and Dictated by Stan Verdin III, MD Transcribed by Ami Delvalle Authenticated and . [facility]
== END ==
PROVIDERS: PCP Emergency Medicine; Visit Provider Orthopaedic Surgery
DX: M25.561 Pain in right knee (principal); S89.91XA Unspecified injury of right lower leg, initial encounter; M25.562 Pain in left knee; Z96.652 Presence of left artificial knee joint
CPT/HCPCS: 73562

== ENCOUNTER → 2023-04-21 15:49 | Outpatient (CLI) | payer OTHER, SELFPAY ==
[2023-04-21 14:01] LABS: Amphetamine/Metha Screen,Urine Negative ng/ml (<1000)
[2023-04-21 14:02] LABS: Barbiturates Screen,Urine Negative ng/ml (<200)
[2023-04-21 14:03] LABS: Benzodiazepines Screen,Urine Negative ng/ml (<200); Cannabinoid Screen,Urine Negative ng/ml (<50)
[2023-04-21 14:04] LABS: Cocaine Screen,Urine Negative ng/ml (<300); Methadone Screen,Urine Negative ng/ml (<300)
[2023-04-21 14:05] LABS: Opiate Screen,Urine Positive ng/ml (<300)
[2023-04-21 14:06] LABS: Phencyclidine Screen,Urine Negative ng/ml (<25)
== END ==
PROVIDERS: PCP Emergency Medicine; Visit Provider Emergency Medicine
DX: G89.29 Other chronic pain (principal); M25.562 Pain in left knee; R82.90 Unspecified abnormal findings in urine; B96.29 Other Escherichia coli [E. coli] as the cause of diseases classified elsewhere
CPT/HCPCS: 80305; 87086; 87088; 87186

== ENCOUNTER → 2023-06-22 11:00 | Outpatient (CLI) | payer OTHER, SELFPAY ==
[2023-06-22 11:45] LABS: Basophils % 0.4 % (0.1-2.0); Eosinophils # 0.2 K/mm3 (0.0-0.4); Eosinophils % 2.3 % (0.1-12.0); Hematocrit 36.5 % (37.0-47.0); Hemoglobin 12.2 g/dL (12.2-16.2); Lymphocytes # 2.2 K/mm3 (0.7-4.5); Lymphocytes % 33.3 % (10-50); Mean Corpuscular HGB Conc 33.4 g/dL (31.8-35.4); Mean Corpuscular Hemoglobin 33.8 pg (27.0-31.2); Mean Corpuscular Volume 101.2 fl (81-99); Mean Platelet Volume 7.6 fl (7.4-10.4); Monocytes # 0.5 K/mm3 (0.1-1.0); Monocytes % 7.4 % (1.7-9.3); Neutrophils # 3.8 K/mm3 (1.8-7.8); Neutrophils % 56.6 % (37.0-80.0); Platelet Count 179 K/mm3 (142-424); Red Blood Count 3.61 M/mm3 (4.20-5.40); Red Cell Distribution Width 12.9 % (11.5-17.5); White Blood Count 6.6 K/mm3 (4.8-10.8)
[2023-06-22 12:18] LABS: Anion Gap 11.4 mEq/L (5-15); Blood Urea Nitrogen 9 mg/dl (7-17); Calcium 9.5 mg/dl (8.4-10.2); Carbon Dioxide 35 mmol/L (22.0-30.0); Chloride 89 mmol/L (98-107); Estimated Glomerular Filt Rate 101 ml/min (>60); GFR (African American) 122 ML/MIN (>60); Glucose 91 mg/dl (74-100); Potassium 4.4 mmoL/L (3.5-5.1); Sodium 131 mmol/L (136-145)
== END ==
PROVIDERS: PCP Emergency Medicine; Visit Provider Surgery
DX: L72.3 Sebaceous cyst (principal)
CPT/HCPCS: 36415; 80048; 85025

== ENCOUNTER 2023-07-07 06:47 | Day surgery (SDC) | payer OTHER, SELFPAY ==
[2023-07-07] VITALS (9 sets, daily range): BP systolic 128–144; BP diastolic 65–86; PULSE 64–77; RESP 13–18; TEMP 36.3–37.2; O2SAT 92–95; BMI 33.1
--- NOTE | 2023-07-07 07:13 | ECG_ITS ---
APPROVED REPORT Exam: Resting ECG HR:68 bpm ECG Measurements Heart Rate 68 AXES FL 155 P 52 QRSd 87 QRS 20 QT 376 T 35 QTc [address] DEVIATION AND MODERATE T-WAVE ABNORMALITY, CONSIDER ANTERIOR ISCHEMIA [-0.1+ mV T-WAVE IN V3/V4] ABNORMAL ECG UNCONFIRMED REPORT Electronically signed by : Eliu Roy MD 07/08/2023 16:32:57
[2023-07-07 07:38] LABS: POC Glucose,Bedside 105 (70-110)
--- NOTE | 2023-07-07 08:18 | P.PNANES_ITS ---
[facility] Disclaimer: The information contained in this section may have been updated after the patient was seen, as this information can be updated by other users. Medical History Anxiety COPD (chronic obstructive pulmonary disease) Depression GERD (gastroesophageal reflux disease) Hyperlipidemia Hypertension Overdose Right knee injury Vitamin D deficiency (~09/28/17) Surgical History H/O arthroscopy of left knee H/O breast biopsy H/O lumpectomy History of arthroplasty of left knee History of colonoscopy History of foot surgery Family History Other No significant family history Social History (Updated 07/07/23 @ 07:34 by Anette Burleson RN) Smoking Status: Former smoker second hand exposure: No alcohol intake: never substance use type: denies use current occupational status: retired and disabled Travel in the last 8 weeks: None household members: spouse housing: house current occupational exposures/hazards: No caffeine: Yes [facility] Anesthesia Checklist Patient Identification Patient Identification: Arm Band Structural Data Admitted From: Home Planned Operative Procedure/s: Excision of Back Cyst Consent for Planned Operative Procedure(s) Verified: Yes Verified Documents: Surgical Consent and History and Physical NPO Status Verified Time NPO: 00:00 Additional verifications Anesthesia Reactions: No Hx Blood Transfusions: No Blood Transfusion Reaction: No Airway Assessment Mallampati Score:: Class II C-Spine Mobility Assessed: Yes TMJ Mobility Assessed: Yes Dentition: Good Dentition (upper partial removed) Neurological Assessment Level of Consciousness: Awake and Alert Anesthesia Plan Anesthesia Risk discussed: Yes Anesthesia Plan: Verified ASA Class: III Anesthesia Type: General
--- NOTE | 2023-07-07 09:18 | EXP.OP.NOTE ---
Date of procedure: 07/07/23 Pre-op Diagnosis:: 2.5 cm mid/lower back cyst 1 cm left mid/upper back cyst Post-op Diagnosis:: same Procedure performed:: Excision of 2.5 cm mid/lower back cyst Excision of 1 cm left mid/upper back cyst Surgeon:: Juan M Gonzalez MD Anesthesia: LMA Estimated blood loss (mL): 10 Operative findings:: Lesions excised in toto Skin was loosely closed secondary to focal inflammatory changes Operative note:: After informed consent was obtained the patient was taken to the operating room and placed in the supine position. General anesthesia with laryngeal mask airway was achieved. She was transferred to the right lateral decubitus position. Her back was prepped and draped in a sterile fashion. After infiltration local anesthetic an elliptical incision was made around the left mid/upper back cyst. The deep subcutaneous tissue was dissected sharply. The lesion was passed off for pathologic evaluation. Electrocautery was utilized to achieve hemostasis and skin was reapproximated with interrupted 4-0 nylon in a mattress fashion to facilitate hemostasis. The 2.5 cm mid/lower back cyst was excised in the same manner. Skin was loosely approximated secondary to focal inflammatory changes. Dressings were applied and the patient was transferred to recovery in stable condition. Condition: stable Disposition: PACU Specimens:: 1 cm left mid/upper back cyst 2.5 cm mid/lower back cyst Complications:: No immediate
--- NOTE | 2023-07-07 09:27 | EXP.ANES.I ---
[facility] Anesthesia Record Part I Anesthesia Record I Intake, IV Amount: 500 Hydration: Adequate Estimated blood loss (mL): 5 Urine output (mL): 0 Blood Pressure: 141/78 SaO2: 93 Pulse Rate: 65 Airway Patency: Patent Respiratory Rate: 14 Temperature: 97.4 F Patient is:: Drowsy and Oral/Nasal airway Stable to PACU at:: 09:25
[2023-07-07 10:34] LABS: POC Glucose,Bedside 88 (70-110)
--- NOTE | 2023-07-08 08:09 | P.PNANES_ITS ---
[facility] Anesthesia Record Part II Anesthesia Record Part II Discharge Time: 09:49 Destination: Surgical Day Care (OP Surgery) PACU nurse assessment reviewed?: Yes Patient Condition:: Good Anesthesia Complications:: None Swallowing reflex intact?: Yes Airway Patency: Patent Cyanosis?: No Blood Pressure: 139/65 SaO2: 93 Respiratory Rate: 16 Pulse Rate: 72 Temperature: 98.2 F Mental Status: Alert & Oriented Pain level:: 0 Nausea and/or vomitting:: None Intake, IV Amount: 0 Hydration: Adequate
[2023-07-08 08:10] VITALS: BP 139/65; PULSE 72; RESP 16; TEMP 36.8; O2SAT 93
== END 2023-07-07 10:08 | disposition home or self-care (01) ==
PROVIDERS: PCP Emergency Medicine; Visit Provider Surgery
PROC: (CPT 11403; principal; 2023-07-07 08:30)
DX: L72.0 Epidermal cyst (principal); E11.9 Type 2 diabetes mellitus without complications
CPT/HCPCS: 11403; 11401; 82962; 93005; 96374; J2405

== ENCOUNTER 2023-07-14 14:13 | Outpatient (CLI) | payer OTHER, SELFPAY | END 2023-07-14 14:23 | disposition home or self-care (01) | LOC: INF 14:14 | PROVIDERS: PCP Internal Medicine; Visit Provider Surgery | DX: L72.3 Sebaceous cyst (principal); D17.1 Benign lipomatous neoplasm of skin and subcutaneous tissue of trunk; Z48.01 Encounter for change or removal of surgical wound dressing | CPT/HCPCS: G0463 ==

== ENCOUNTER 2023-07-15 11:33 | Outpatient (CLI) | payer OTHER, SELFPAY | END 2023-07-15 11:53 | disposition home or self-care (01) | LOC: INF 11:34 | PROVIDERS: PCP Internal Medicine; Visit Provider Surgery | DX: Z48.01 Encounter for change or removal of surgical wound dressing (principal) | CPT/HCPCS: G0463 ==

== ENCOUNTER → 2023-07-16 14:03 | Outpatient (CLI) | payer OTHER, SELFPAY | PROVIDERS: PCP Internal Medicine; Visit Provider Surgery | DX: Z48.01 Encounter for change or removal of surgical wound dressing (principal); D17.1 Benign lipomatous neoplasm of skin and subcutaneous tissue of trunk; L72.3 Sebaceous cyst | CPT/HCPCS: G0463 ==

== ENCOUNTER 2023-07-17 10:03 | Outpatient (CLI) | payer OTHER, SELFPAY | END 2023-07-17 10:20 | disposition home or self-care (01) | PROVIDERS: PCP Internal Medicine; Visit Provider Surgery | DX: L72.3 Sebaceous cyst (principal); D17.1 Benign lipomatous neoplasm of skin and subcutaneous tissue of trunk; Z48.01 Encounter for change or removal of surgical wound dressing | CPT/HCPCS: G0463 ==

== ENCOUNTER 2023-07-18 09:53 | Outpatient (CLI) | payer OTHER, SELFPAY | END 2023-07-18 10:10 | disposition home or self-care (01) | LOC: INF 09:54 | PROVIDERS: PCP Internal Medicine; Visit Provider Surgery | DX: Z48.01 Encounter for change or removal of surgical wound dressing (principal); D17.1 Benign lipomatous neoplasm of skin and subcutaneous tissue of trunk | CPT/HCPCS: G0463 ==

== ENCOUNTER → 2023-07-20 14:30 | Outpatient (CLI) | payer OTHER, SELFPAY ==
[2023-07-20 12:22] LABS: Chloride 87 mmol/L (98-107); Sodium 132 mmol/L (136-145)
[2023-07-20 12:23] LABS: Potassium 4.8 mmoL/L (3.5-5.1)
[2023-07-20 12:25] LABS: Alanine Aminotransferase 72 U/L (12-78); Albumin Level 3.9 g/dl (3.5-5.0); Albumin/Globulin Ratio 1.3 (1.1-1.8); Alkaline Phosphatase 115 U/L (38-126); Aspartate Amino Transferase 69 U/L (14-36); Bilirubin,Total 0.4 mg/dl (0.2-1.3); Blood Urea Nitrogen 19 mg/dl (7-17); Estimated Glomerular Filt Rate 85 ml/min (>60); GFR (African American) 102 ML/MIN (>60); Globulin 2.9 g/dL (1.3-3.2); Total Protein,Serum 6.8 g/dl (6.3-8.2)
[2023-07-20 12:26] LABS: Calcium 9.1 mg/dl (8.4-10.2); Glucose 92 mg/dl (74-100)
[2023-07-20 12:41] LABS: Anion Gap 7.8 mEq/L (5-15); Carbon Dioxide 42 mmol/L (22.0-30.0)
== END ==
PROVIDERS: PCP Internal Medicine; Visit Provider Internal Medicine
DX: I10 Essential (primary) hypertension (principal); Z87.891 Personal history of nicotine dependence
CPT/HCPCS: 80053

== ENCOUNTER 2023-07-22 09:03 | Outpatient (CLI) | payer OTHER, SELFPAY ==
--- NOTE | 2023-07-22 09:08 | XR_ITS ---
FINAL REPORT CLINICAL HISTORY: right knee pain fall x 1 month ago COMPARISON: None FINDINGS: 3 views of the right knee were obtained. There is no acute fracture or dislocation. The joint spaces are intact. There is no soft tissue abnormality. IMPRESSION: No acute fracture Reviewed, Interpreted and Dictated by Ilir Lund MD Transcribed by Ami Delvalle Authenticated and [facility]
[2023-07-22 10:10] VITALS: BP 108/81; PULSE 72; RESP 20; TEMP 36.4; O2SAT 92
== END 2023-07-22 10:10 | disposition home or self-care (01) ==
PROVIDERS: PCP Internal Medicine; Visit Provider Surgery
DX: M25.561 Pain in right knee (principal); Z48.01 Encounter for change or removal of surgical wound dressing
CPT/HCPCS: 73562; G0463

== ENCOUNTER → 2023-07-23 15:06 | Outpatient (CLI) | payer OTHER, SELFPAY | PROVIDERS: PCP Internal Medicine; Visit Provider Internal Medicine | DX: Z48.01 Encounter for change or removal of surgical wound dressing (principal); D17.1 Benign lipomatous neoplasm of skin and subcutaneous tissue of trunk | CPT/HCPCS: G0463 ==

== ENCOUNTER → 2023-07-24 12:53 | Outpatient (CLI) | payer OTHER, SELFPAY | PROVIDERS: PCP Internal Medicine; Visit Provider Surgery | DX: Z48.01 Encounter for change or removal of surgical wound dressing (principal); D17.1 Benign lipomatous neoplasm of skin and subcutaneous tissue of trunk | CPT/HCPCS: G0463 ==

== ENCOUNTER 2023-07-25 13:50 | Outpatient (CLI) | payer OTHER, SELFPAY | END 2023-07-25 14:00 | disposition home or self-care (01) | LOC: INF 13:50 | PROVIDERS: PCP Internal Medicine; Visit Provider Surgery | DX: Z48.01 Encounter for change or removal of surgical wound dressing (principal); D17.1 Benign lipomatous neoplasm of skin and subcutaneous tissue of trunk | CPT/HCPCS: G0463 ==

== ENCOUNTER → 2023-07-27 16:41 | Outpatient (CLI) | payer OTHER, SELFPAY | LOC: INF 16:42 | PROVIDERS: PCP Internal Medicine; Visit Provider Surgery | DX: Z48.01 Encounter for change or removal of surgical wound dressing (principal); D17.1 Benign lipomatous neoplasm of skin and subcutaneous tissue of trunk ==

== ENCOUNTER 2023-07-28 10:34 | Outpatient (CLI) | payer OTHER, SELFPAY | END 2023-07-28 10:45 | disposition home or self-care (01) | LOC: INF 10:34 | PROVIDERS: PCP Internal Medicine; Visit Provider Surgery | DX: Z48.01 Encounter for change or removal of surgical wound dressing (principal); D17.1 Benign lipomatous neoplasm of skin and subcutaneous tissue of trunk | CPT/HCPCS: G0463 ==

== ENCOUNTER 2023-07-29 13:56 | Outpatient (CLI) | payer OTHER, SELFPAY | END 2023-07-29 14:10 | disposition home or self-care (01) | LOC: INF 13:56 | PROVIDERS: PCP Internal Medicine; Visit Provider Surgery | DX: Z48.01 Encounter for change or removal of surgical wound dressing (principal); D17.1 Benign lipomatous neoplasm of skin and subcutaneous tissue of trunk | CPT/HCPCS: G0463 ==

== ENCOUNTER 2023-07-30 11:31 | Outpatient (CLI) | payer OTHER, SELFPAY | END 2023-07-30 11:52 | disposition home or self-care (01) | LOC: INF 11:31 | PROVIDERS: PCP Internal Medicine; Visit Provider Surgery | DX: Z48.01 Encounter for change or removal of surgical wound dressing (principal); D17.1 Benign lipomatous neoplasm of skin and subcutaneous tissue of trunk | CPT/HCPCS: G0463 ==

== ENCOUNTER 2023-07-31 13:14 | Outpatient (CLI) | payer OTHER, SELFPAY | END 2023-07-31 13:29 | disposition home or self-care (01) | LOC: INF 13:14 | PROVIDERS: PCP Internal Medicine; Visit Provider Surgery | DX: Z48.01 Encounter for change or removal of surgical wound dressing (principal); D17.1 Benign lipomatous neoplasm of skin and subcutaneous tissue of trunk | CPT/HCPCS: G0463 ==

== ENCOUNTER → 2023-08-01 10:01 | Outpatient (CLI) | payer OTHER, SELFPAY | PROVIDERS: PCP Internal Medicine; Visit Provider Surgery | DX: Z48.01 Encounter for change or removal of surgical wound dressing (principal); D17.1 Benign lipomatous neoplasm of skin and subcutaneous tissue of trunk | CPT/HCPCS: G0463 ==

== ENCOUNTER 2023-08-02 14:10 | Outpatient (CLI) | payer OTHER, SELFPAY | END 2023-08-02 14:48 | disposition home or self-care (01) | LOC: INF 14:11 | PROVIDERS: PCP Internal Medicine; Visit Provider Surgery | DX: Z48.01 Encounter for change or removal of surgical wound dressing (principal); D17.1 Benign lipomatous neoplasm of skin and subcutaneous tissue of trunk | CPT/HCPCS: G0463 ==

== ENCOUNTER 2023-08-03 14:24 | Outpatient (CLI) | payer OTHER, SELFPAY | END 2023-08-03 14:40 | disposition home or self-care (01) | LOC: INF 14:25 | PROVIDERS: PCP Internal Medicine; Visit Provider Surgery | DX: Z48.01 Encounter for change or removal of surgical wound dressing (principal); D17.1 Benign lipomatous neoplasm of skin and subcutaneous tissue of trunk | CPT/HCPCS: G0463 ==

== ENCOUNTER 2023-08-04 13:49 | Outpatient (CLI) | payer OTHER, SELFPAY | END 2023-08-04 14:22 | disposition home or self-care (01) | LOC: INF 13:50 | PROVIDERS: PCP Internal Medicine; Visit Provider Surgery | DX: Z48.01 Encounter for change or removal of surgical wound dressing (principal); D17.1 Benign lipomatous neoplasm of skin and subcutaneous tissue of trunk | CPT/HCPCS: G0463 ==

== ENCOUNTER 2023-08-05 11:53 | Outpatient (CLI) | payer OTHER, SELFPAY | END 2023-08-05 12:00 | disposition home or self-care (01) | LOC: INF 11:54 | PROVIDERS: PCP Internal Medicine; Visit Provider Surgery | DX: Z48.01 Encounter for change or removal of surgical wound dressing (principal); D17.1 Benign lipomatous neoplasm of skin and subcutaneous tissue of trunk | CPT/HCPCS: G0463 ==

== ENCOUNTER 2023-08-12 09:55 | Outpatient (CLI) | payer OTHER, SELFPAY ==
[2023-08-12 16:37] LABS: Amphetamine/Metha Screen,Urine Negative ng/ml (<1000); Barbiturates Screen,Urine Negative ng/ml (<200); Benzodiazepines Screen,Urine Negative ng/ml (<200); Cannabinoid Screen,Urine Negative ng/ml (<50); Cocaine Screen,Urine Negative ng/ml (<300); Methadone Screen,Urine Negative ng/ml (<300); Opiate Screen,Urine Positive ng/ml (<300); Phencyclidine Screen,Urine Negative ng/ml (<25)
[2023-08-18 14:12] LABS: Codeine Negative (Cutoff=100); Hydrocodone Positive (.); Hydromorphone Negative (Cutoff=100); Morphine Negative (Cutoff=100); Opiates Positive (.)
== END 2023-08-12 23:59 ==
LOC: LAB.DROPOF 08-13 09:56
PROVIDERS: PCP Internal Medicine; Visit Provider Nurse Practitioner Family
DX: Z79.899 Other long term (current) drug therapy (principal)
CPT/HCPCS: 80307; 80361; 80365; G0480

== ENCOUNTER 2023-08-15 10:21 | Outpatient (CLI) | payer OTHER, SELFPAY | END 2023-08-15 23:59 | LOC: LAB.DROPOF 08-19 10:22 | PROVIDERS: PCP Nurse Practitioner Family; Visit Provider Nurse Practitioner Family | DX: Z79.899 Other long term (current) drug therapy (principal) | CPT/HCPCS: 80361; 80365; G0480 ==

== ENCOUNTER 2023-09-05 11:44 | Outpatient (CLI) | payer OTHER, SELFPAY ==
[2023-09-05 12:17] LABS: Amphetamine/Metha Screen,Urine Negative ng/ml (<1000); Barbiturates Screen,Urine Negative ng/ml (<200)
[2023-09-05 12:19] LABS: Cannabinoid Screen,Urine Negative ng/ml (<50); Cocaine Screen,Urine Negative ng/ml (<300)
[2023-09-05 12:20] LABS: Methadone Screen,Urine Negative ng/ml (<300)
[2023-09-05 12:21] LABS: Phencyclidine Screen,Urine Negative ng/ml (<25)
[2023-09-05 12:25] LABS: Benzodiazepines Screen,Urine Negative ng/ml (<200)
[2023-09-05 12:26] LABS: Opiate Screen,Urine Positive ng/ml (<300)
== END 2023-09-05 23:59 ==
LOC: LAB.DROPOF 11:44
PROVIDERS: PCP Internal Medicine; Visit Provider Internal Medicine
DX: Z79.899 Other long term (current) drug therapy (principal)
CPT/HCPCS: 80307

== ENCOUNTER 2023-09-15 18:16 | Outpatient (CLI) | payer BC, SELFPAY ==
--- NOTE | 2023-09-15 18:17 | MR_ITS ---
PROCEDURE INFORMATION: Exam: MR Right Lower Extremity Joint Without Contrast, Knee Exam date and time: 09/15/2023 6:17 PM Age: 62 years old Clinical indication: Pain; Knee; Right; Additional info: RT knee pain TECHNIQUE: Imaging protocol: Magnetic resonance imaging of the right lower extremity joint without contrast. Exam focused on the knee. COMPARISON: CR XR KNEE RT 3V 07/22/2023 9:10 AM FINDINGS: Bones/joints: Minimal patellofemoral joint effusion. A small multilobulated well-defined lesion is identified within the bone marrow of the distal femur measuring 0.8 x 0.4 x 0.5 cm. This demonstrates nonaggressive MR signal characteristics. No aggressive periosteal reaction is identified. There is no osseous expansion. No adjacent soft tissue mass is seen. An enchondroma is suggested. No dislocation of the knee. No visualized acute marrow edema. Bursae: A small Parker cyst is visualized. Medial meniscus: No visualized tear of the medial meniscus contacting an articulating surface. Lateral meniscus: A horizontal tear is identified within the body of the lateral meniscus extending to the articulating surface. This tear extends into the posterior horn. Anterior cruciate ligament: No visualized tear. Posterior cruciate ligament: Heterogeneous signal intensity of the PCL, without definitive tear. Medial capsule and supporting structures: Thickening of the medial collateral ligament, likely due to prior injury. There is increased STIR signal intensity within this ligament, suggestive of partial tear. Lateral capsule and supporting structures: Unremarkable. No tear. Extensor mechanism of knee: Mild tendinosis is visualized of the proximal patellar tendon and distal quadriceps tendon. Soft tissues: Minimal edema is seen within office fat. Minimal soft tissue edema anteriorly. IMPRESSION: 1. A horizontal tear is identified within the body of the lateral meniscus. This tear extends into the posterior horn. 2. Minimal patellofemoral joint effusion. 3. A small Parker cyst is visualized. 4. Thickening of the medial collateral ligament, likely due to prior injury. Partial tear is also suggested. 5. A small multilobulated lesion is identified within the bone marrow of the distal femur measuring 0.8 x 0.4 x 0.5 cm. This demonstrates nonaggressive MR signal characteristics. An enchondroma is suggested. Follow-up radiographs are recommended. 6. Additional findings described above.
== END 2023-09-15 23:59 ==
PROVIDERS: PCP Internal Medicine; Visit Provider Orthopaedic Surgery
DX: M25.561 Pain in right knee (principal)
CPT/HCPCS: 73721

== ENCOUNTER 2023-10-11 08:39 | Outpatient (RCR) | payer BC, SELFPAY ==
--- NOTE | 2023-10-11 09:52 | HMH.PTOPEV ---
PT Outpatient Evaluation Rehab PT Outpatient Evaluation Start: 10/11/23 09:23 Freq: Status: Active Protocol: Document 10/11/23 09:23 SHAQ (Rec: 10/11/23 09:52 SHAQ [id number]) E-signed By Erwin Villarreal, PT Outpatient Therapy Subjective History Subjective History Pt reports injury to right knee caused by a fall in . Pt reports s/p fall imaging study revealed right knee OA and lateral mensicus tear. Pt reports right knee pain has remained unchanged for months, with lateral> medial right knee pain, intermittent swelling, and weakness. PMH: left TKA New diagnosis of cancer in past 12 No months? Chief Complaint Pain,Stiff,Swelling,Weakness Symptom Type Ache,Throb,Sharp,Dull,Stabbing Symptoms Relieved By Rest/Positioning,Heat,Ice Symptoms Aggravated By Standing,Twisting,Walking Prior Functional Limitations Housework,Standing,Walking Current Functional Limitations Housework,Standing,Squatting, Recreation Activity,Walking Symptom Description Constant but Variable Level of pain today (0-10) 3 Pain scale - at its best (0-10) 3 Pain scale - at its worst (0-10) 8 Hip/Knee Eval Gait Observation General Gait Pattern Observation Antalgic Gait Assistive Device Assistive Devices None / NA Palpation Tenderness right Knee Palpation Finding Tenderness Knee Palpation Overall Comment 3/4 lateral jt line, 2-3/4 medial jt line MMT Hip Flexion Strength Grade 3+ Fair+ Hip Abduction Strength Grade 3+ Fair+ Hip Adduction Strength Grade 3- Fair- Hip Extension Strength Grade 3+ Fair+ Hip External Rotation Strength Grade 4- Good- Hip Internal Rotation Strength Grade 4- Good- Knee Extension Strength Grade 4 Good Knee Flexion Strength Grade 4- Good- ROM Knee Flexion Active Range of Motion ( 0-127 degrees) Knee ROM Limitations Pain Effusion joint effusion knee exam standard right Mid - Patellar Circumerential Measure ( 38.5 cm) Special Tests Knee Xu Test Negative Left,Positive Right Lower Extremity Functional Index Activities Today, do you or would you have any difficulty at all with: a.Any of your usual work, housework or Moderate difficulty school activities b. Your usual hobbies, recreational or Extreme difficulty or unable sporting activities to perform activity c. Getting into or out of the bath Extreme difficulty or unable to perform activity d. Walking between rooms A little bit of difficulty e. Putting on your shoes or socks Quite a bit of difficulty f. Squatting Extreme difficulty or unable to perform activity g. Lifting an object, like a bag of Extreme difficulty or unable groceries from the floor to perform activity h. Performing light activities around Moderate difficulty your home i. Performing heavy activities around Extreme difficulty or unable your home to perform activity j. Getting into or out of a car Moderate difficulty k. Walking 2 blocks Extreme difficulty or unable to perform activity l. Walking a mile Extreme difficulty or unable to perform activity m. Going up or down 10 stairs (about 1 Extreme difficulty or unable flight of stairs) to perform activity n. Standing for 1 hour Extreme difficulty or unable to perform activity o. Sitting for 1 hour Moderate difficulty p. Running on even ground Extreme difficulty or unable to perform activity q. Running on uneven ground Extreme difficulty or unable to perform activity r. Making sharp turns while running fast Extreme difficulty or unable to perform activity s. Hopping Extreme difficulty or unable to perform activity t. Rolling over in bed Moderate difficulty LEFI Score Lower Extremity Functional Index Score 14 Outpatient Therapy Assessment Impairments Problems/Impairmments Palpation Tenderness,Impaired Range of Motion,Impaired Strength,Impaired Gait Pattern ,Impaired Walking,Impaired Standing,Impaired Household Care,Impaired Stair Climbing, Impaired Squatting,Increased Edema,Subjective C/O Pain, Impaired Self Care/Self Management Prognosis Rehab Potential Good Clinical Impression Consistent with Diagnosis Yes Short Term Goals Number of Weeks 4 Decreased Palpation Tenderness Yes: 1-2/4 right knee Increase Range of Motion Yes: 0-130 w/o pain RIGHT KNEE FLX Increase Strength Yes: 3+-4/5 RLE Increase Ability to Walk Yes: 15MIN Increase Ability to Stand Yes: 15MIN Improve Ability For Household Care Yes: 15MIN Improve LEFI Score Yes: >30 Decrease Subjective C/O Pain Yes: 3-4/10 W/ABOVE ACTIVITIES Patient to be Ind w/ HEP Yes Longterm Goals Number of Weeks 6-8 Decreased Palpation Tenderness Yes: 0-1/4 RIGHT KNEE Increase Strength Yes: 4-4+/5 RLE Improve Gait Pattern without Assistive Yes: WFL ON LEVEL TERRAIN Device Increase Ability to Walk Yes: 30MIN Increase Ability to Stand Yes: 30MIN Improve Ability For Household Care Yes: 30MIN Improve Ability to Climb Stairs Yes: WFL Improve LEFI Score Yes: >50 Decrease Subjective C/O Pain Yes: 0-2/10 W/ABOVE ACTIVITIES Patient to be Ind w/ Advanced HEP Yes Outpatient Therapy Plan of Care Treatment Plan May Include Therapeutic Exercise Including Home Yes Exercise Program Manual Therapy Techniques Yes Neuromuscular Re-education Yes Therapeutic Activities to Return to Yes Previous Functional/Work Level Gait Training Yes ADL/Self Care Education Yes Dry Needling Yes Thermal Modalities Yes Electrical Stimulation Yes Ultrasound/Phonophoresis Yes Iontophoresis Yes Orthotics/Bracing/Splinting Yes Vasopneumatic Compression Pump Yes Eval/Re-Eval Yes Frequency Times per week 2-3 Duration Number of Weeks 6-8 Addendums This patient is a candidate for social No or vocational rehab? Patient/Guardian verbally acknowledges Yes understanding of treatment program and consents to further treatment? Patient/Guardian verbally acknowledges Yes understanding of diagnosis, prognosis and goals for treatment? Eval Complexity PT Charges 48842 - Low Complexity Shoulder/Elbow Eval Shoulder Objective Measurements Elbow Objective Measurements PHYSICIAN CERTIFICATION: I certify the specified therapy services for Reva Suresh are required, authorized, and reviewed every 30 days.
== END 2023-10-11 10:00 | disposition home or self-care (01) ==
LOC: PT 08:39
PROVIDERS: Visit Provider Orthopaedic Surgery
DX: M17.11 Unilateral primary osteoarthritis, right knee (principal); W19.XXXA Unspecified fall, initial encounter
CPT/HCPCS: 97014; 97016; 97110; 97163; G0283

== ENCOUNTER 2023-11-09 09:58 | Outpatient (CLI) | payer BC, SELFPAY ==
--- NOTE | 2023-11-09 10:05 | XR_ITS ---
FINAL REPORT CLINICAL HISTORY: left knee pain. had a total knee replacement last year. COMPARISON: 04/13/2023 FINDINGS: Three views of the left knee reveal no evidence of fracture or dislocation. Left knee arthroplasty, stable hardware. The bony alignment is normal. The joint spaces are preserved. There is no evidence of joint effusion. No localized soft tissue abnormality is seen. IMPRESSION: No acute abnormality identified. Reviewed, Interpreted and Dictated by Stan Verdin III, MD Transcribed by Ami Delvalle Authenticated and [facility]
--- NOTE | 2023-11-09 10:05 | XR_ITS ---
FINAL REPORT CLINICAL HISTORY: right knee pain COMPARISON: 07/22/2023 FINDINGS: Three views of the right knee reveal no evidence of fracture or dislocation. The bony alignment is normal. Moderate degenerative change of the medial compartment. There is no evidence of joint effusion. No localized soft tissue abnormality is identified. IMPRESSION: Moderate degenerative change without acute abnormality identified. Reviewed, Interpreted and Dictated by Stan Verdin III, MD Transcribed by Ami Delvalle Authenticated and [facility]
== END 2023-11-09 23:59 ==
LOC: RAD 09:59
PROVIDERS: PCP Internal Medicine; Visit Provider Orthopaedic Surgery
DX: M25.561 Pain in right knee (principal); M25.562 Pain in left knee
CPT/HCPCS: 73562

== ENCOUNTER 2023-12-16 09:41 | Outpatient (CLI) | payer BC, SELFPAY ==
--- NOTE | 2023-12-16 09:42 | MM_ITS ---
PROCEDURE INFORMATION: Exam: MG Bilateral Screening 3D Mammography Exam date and time: 12/16/2023 9:50 AM Age: 63 years old Clinical indication: Screening mammogram TECHNIQUE: Imaging protocol: Bilateral Screening tomosynthesis and 2D mammography including computer-aided detection (CAD) when performed. COMPARISON: 1. MG DMSB DIG MAMM-SCREEN [place] W/CAD 06/02/2017 9:48 AM 2. MG DMSB DIG MAMM-SCREEN [place] 03/27/2015 9:19 AM 3. MG DMSB DIG MAMM-SCREEN PALOMO 05/07/2013 2:13 PM 4. MG DMSB DIGITAL MAMM-SCREEN BILATERAL 05/12/2011 9:01 AM FINDINGS: MAMMOGRAPHY: Breast composition: There are scattered areas of fibroglandular density. Mass: Stable benign-appearing subcentimeter nodules are present in the bilateral breasts. No new or morphologically suspicious nodule has developed to suggest malignancy. Architectural distortion: No new or suspicious architectural distortion. Calcifications: No new or suspicious calcifications are present Asymmetric density: No new or suspicious asymmetric density is present Skin thickening: None. Axillary adenopathy: None. IMPRESSION: No mammographic evidence of malignancy. Recommend annual screening mammography unless otherwise clinically indicated. ASSESSMENT: BI-RADS category 2: Benign.
== END 2023-12-16 23:59 | disposition home or self-care (01) ==
LOC: RAD 09:42
PROVIDERS: PCP Internal Medicine; Visit Provider Internal Medicine
DX: Z12.31 Encounter for screening mammogram for malignant neoplasm of breast (principal)
CPT/HCPCS: 77063; 77067

== ENCOUNTER 2023-12-20 08:31 | Outpatient (CLI) | payer BC, SELFPAY ==
--- NOTE | 2023-12-20 08:57 | ECG_ITS ---
APPROVED REPORT Exam: Resting ECG HR:92 bpm ECG Measurements Heart Rate 92 AXES MO 157 P 2 QRSd 84 QRS 6 QT 315 T 17 QTc 365 Conclusion SINUS RHYTHM MINIMAL ST DEPRESSION [0.025+ mV ST DEPRESSION] BORDERLINE ECG UNCONFIRMED REPORT Electronically signed by : Eliu Roy MD 12/23/2023 12:26:07
--- NOTE | 2023-12-20 09:00 | XR_ITS ---
FINAL REPORT CLINICAL HISTORY: pre op, soa COMPARISON: 10/08/2022 FINDINGS: Two views of the chest were obtained. The heart size and pulmonary vascularity are within normal limits. The mediastinum is normal. No acute pulmonary abnormality is identified. There is no pneumothorax. The bony thorax is intact. IMPRESSION: No active cardiopulmonary disease. Reviewed, Interpreted and Dictated by Stan Verdin III, MD Transcribed by Sonia Green Authenticated and . [facility]
[2023-12-20 09:16] LABS: Basophils % 0.4 % (0.1-2.0); Eosinophils # 0.1 K/mm3 (0.0-0.4); Eosinophils % 1.5 % (0.1-12.0); Hematocrit 39.4 % (37.0-47.0); Hemoglobin 12.4 g/dL (12.2-16.2); Lymphocytes # 1.7 K/mm3 (0.7-4.5); Lymphocytes % 24.3 % (10-50); Mean Corpuscular HGB Conc 31.5 g/dL (31.8-35.4); Mean Corpuscular Hemoglobin 32.8 pg (27.0-31.2); Mean Corpuscular Volume 104.1 fl (81-99); Mean Platelet Volume 8.4 fl (7.4-10.4); Monocytes # 0.4 K/mm3 (0.1-1.0); Monocytes % 5.8 % (1.7-9.3); Neutrophils # 4.7 K/mm3 (1.8-7.8); Neutrophils % 67.9 % (37.0-80.0); Platelet Count 208 K/mm3 (142-424); Red Blood Count 3.78 M/mm3 (4.20-5.40); Red Cell Distribution Width 13.4 % (11.5-17.5); White Blood Count 6.9 K/mm3 (4.8-10.8)
[2023-12-20 10:05] LABS: Alanine Aminotransferase 251 U/L (12-78); Albumin Level 4.2 g/dl (3.5-5.0); Albumin/Globulin Ratio 1.4 (1.1-1.8); Alkaline Phosphatase 123 U/L (38-126); Aspartate Amino Transferase 272 U/L (14-36); Blood Urea Nitrogen 14 mg/dl (7-17); Calcium 9.8 mg/dl (8.4-10.2); Carbon Dioxide 33 mmol/L (22.0-30.0); Chloride 95 mmol/L (98-107); Estimated Glomerular Filt Rate 124 ml/min (>60); GFR (African American) 150 ML/MIN (>60); Globulin 2.9 g/dL (1.3-3.2); Glucose 96 mg/dl (74-100); Sodium 136 mmol/L (136-145); Total Protein,Serum 7.1 g/dl (6.3-8.2)
[2023-12-20 10:20] LABS: 25-OH Vitamin D, Total 74.3 ng/mL (30-100)
[2023-12-20 11:10] LABS: Vitamin B12 347 pg/mL (239-931)
[2023-12-20 11:11] LABS: Folate 7.98 ng/mL
[2023-12-20 11:42] LABS: Iron 163 ug/dL (37-170)
[2023-12-20 11:51] LABS: Total Iron Binding Capacity 408 ug/dL (265-497)
[2023-12-20 12:18] LABS: Ferritin 155 ng/ml (11.1-264)
[2023-12-22 08:52] LABS: Peripheral Smear Review Scanned Result
== END 2023-12-20 23:59 | disposition home or self-care (01) ==
LOC: LAB 08:32
PROVIDERS: PCP Internal Medicine; Visit Provider Orthopaedic Surgery
DX: R53.83 Other fatigue; S83.271A Complex tear of lateral meniscus, current injury, right knee, initial encounter; M25.561 Pain in right knee; Z01.818 Encounter for other preprocedural examination; Z79.899 Other long term (current) drug therapy; R74.01 Elevation of levels of liver transaminase levels
CPT/HCPCS: 36415; 71046; 80053; 82306; 82607; 82728; 82746; 83540; 83550; 85025; 93005

== ENCOUNTER 2024-01-17 10:53 | Day surgery (SDC) | payer BC, SELFPAY ==
[2024-01-13 14:12] VITALS: BMI 32.4
[2024-01-17] VITALS (10 sets, daily range): BP systolic 113–168; BP diastolic 71–99; PULSE 74–92; RESP 16–18; TEMP 36.1–36.4; O2SAT 96–100
--- NOTE | 2024-01-17 11:52 | ECG_ITS ---
APPROVED REPORT Exam: Resting ECG HR:91 bpm ECG Measurements Heart Rate 91 AXES MT 155 P -12 QRSd 88 QRS 15 QT 349 T 29 QTc [address] DEVIATION AND MODERATE T-WAVE ABNORMALITY, CONSIDER ANTERIOR ISCHEMIA [-0.1+ mV T-WAVE IN V3/V4] ABNORMAL ECG UNCONFIRMED REPORT Electronically signed by : Eliu Roy MD 01/18/2024 15:03:36
--- NOTE | 2024-01-17 12:22 | EXP.ANES.CKL ---
[facility] Disclaimer: The information contained in this section may have been updated after the patient was seen, as this information can be updated by other users. Medical History Diabetes mellitus, type 2 Stopped smoking between 1 and 5 years ago Restrictive lung disease Dyspnea on exertion ILD (interstitial lung disease) Right knee injury GERD (gastroesophageal reflux disease) Anxiety Overdose Hyperlipidemia Depression Hypertension COPD (chronic obstructive pulmonary disease) Vitamin D deficiency (~09/28/17) Surgical History History of arthroplasty of left knee History of colonoscopy H/O lumpectomy H/O breast biopsy H/O arthroscopy of left knee History of foot surgery Family History Other No significant family history Social History Smoking Status: Former smoker second hand exposure: No alcohol intake: never substance use type: denies use current occupational status: retired and disabled Travel in the last 8 weeks: None housing: house current occupational exposures/hazards: No caffeine: Yes [facility] Anesthesia Checklist Patient Identification Patient Identification: Arm Band Structural Data Admitted From: Home Planned Operative Procedure/s: Right Knee Arthroscopy, Partial Lateral Meniscectomy Consent for Planned Operative Procedure(s) Verified: Yes Verified Documents: Surgical Consent and History and Physical NPO Status Verified Time NPO: 00:00 Additional verifications Anesthesia Reactions: No Hx Blood Transfusions: No Blood Transfusion Reaction: No Airway Assessment Mallampati Score:: Class II C-Spine Mobility Assessed: Yes TMJ Mobility Assessed: Yes Dentition: Good Dentition Neurological Assessment Level of Consciousness: Awake, Alert and Appropriate Anesthesia Plan Anesthesia Risk discussed: Yes Anesthesia Plan: Verified ASA Class: III Anesthesia Type: General
[2024-01-17] MEDS: ROPIVACAINE 0.5% 30ML VIAL 150 MG (13:12)
[2024-01-17] MEDS: EPINEPHrine 1MG/ML 30ML VIAL 30 MG (13:12)
[2024-01-17] MEDS: RINGERS SOLUTION,LACTATED 3,000 ML 3000 ML IR (13:14)
--- NOTE | 2024-01-17 13:37 | EXP.OP.NOTE ---
Date of procedure: 01/17/24 Pre-op Diagnosis:: Right knee lateral meniscus tear Post-op Diagnosis:: Right knee medial and lateral meniscus tears Procedure performed:: Right knee arthroscopy with partial medial and lateral meniscectomy Surgeon:: Fred Ivey MD Sales Property Manager(s):: None BULL LADLE TENDER:: Lazaro Avalos Anesthesia: GETA and local Estimated blood loss (mL): 5 Clinical Note:: Reva is a pleasant 63-year-old female with right knee pain secondary to medial and lateral meniscus tears. An MRI in September revealed tear of the posterior horn and body of the lateral meniscus. Minimal degenerative changes. She injured her right knee when she fell at [facility] April 2023. Left knee doing well status post knee replacement 2022. No relief of her right knee pain with physical therapy or a knee brace. Does not want any injections. We discussed all the risks, benefits and alternatives to right knee arthroscopy for partial lateral meniscectomy, she agreed to proceed and surgical consent form was signed. Diagnosis arthroscopy also revealed a tear of the posterior horn of the medial meniscus so we performed a medial and lateral meniscectomy. Operative findings:: Horizontal cleavage tears of the posterior horn medial meniscus and posterior horn and body of the lateral meniscus. Minimal degenerative changes. Ligaments intact. Operative note:: The patient was seen in the preoperative holding area. The right knee was marked to confirm the correct operative site. She was seen by anesthesia. She received Ancef 2 g IV prophylactic antibiotics within 1 hour incision time. She was brought back to the OR. General anesthesia induced without difficulty. Right lower extremity prepped and draped in the usual sterile fashion. Timeout performed to confirm right knee arthroscopy for patient Reva Suresh. I made an anterolateral viewing portal with an 11 scalpel and arthroscope was introduced into the knee joint. I then made an anteromedial portal localizing this with a spinal needle and making this incision with an 11 blade as well. Diagnostic arthroscopy commenced. She had minimal chondromalacia of the patellofemoral compartment. No unstable cartilage flaps. Evaluation of the medial compartment revealed a horizontal cleavage tear with a lot of inner edge fraying of the posterior horn of the medial meniscus. This was treated with a partial medial meniscectomy. I used a straight biter and a 4.0 mm shaver to perform a partial medial meniscectomy. I resected approximately a third of the posterior horn of the medial meniscus back to a smooth stable border. We made a smooth transition to intact body of the medial meniscus. There was minimal chondromalacia of medial compartment with no unstable cartilage flaps. Crucial ligaments were seen to be intact. She was placed in the [id number] position. Evaluation lateral compartment revealed minimal chondromalacia. Horizontal cleavage tear with inner edge fraying posterior horn and body of the lateral meniscus. This was treated with a partial lateral meniscectomy using once again the straight biter and a 4.0 mm shaver to resect out the proximal inner third of the posterior horn and body of the medial meniscus back to a smooth stable border. We made a smooth transition to intact anterior horn of the lateral meniscus. There was also some undersurface fraying of the posterior horn of the lateral meniscus that we debrided with a shaver back to a smooth border. At this time arthroscopy instruments were removed from the joint. Arthroscopy fluid suctioned and drained from the joint. Portals were closed with 4 Monocryl subcuticular sutures. I injected 20 cc of half percent Naropin from the superolateral approach for local anesthetic. A sterile dressing was applied with Steri-Strips, 4 x 4's, ABD, soft roll and Ross bandage. Anesthesia reversed without difficulty. Transferred to recovery in stable condition. All sponge and needle counts were correct. Postoperative plan: Plan to discharge home from recovery She may be weight-bear as tolerated with crutch assistance as needed. Ice and elevation to the right knee. Okay to remove soft dressing in 2 to 3 days. Okay to shower with knee scope incisions covered. We prescribed oxycodone to take as needed for pain. She is going to take aspirin 81 mg twice daily w meals starting tomorrow for DVT prophylaxis. We will see her back in the office on Friday 01/26 for her first postoperative check. Tourniquet time (min): 0 Condition: stable Disposition: PACU Specimens:: None Complications:: None
[2024-01-17] MEDS: HYDROMORPHONE 2MG/ML SYRINGE 0.5 MG IV ×4 (13:42→13:57)
--- NOTE | 2024-01-17 13:43 | EXP.ANES.I ---
[facility] Anesthesia Record Part I Anesthesia Record I Intake, IV Amount: 500 Hydration: Adequate Estimated blood loss (mL): 10 Urine output (mL): 0 Blood Products used (#): none Blood Pressure: 144/73 SaO2: 98 Pulse Rate: 88 Airway Patency: Patent Respiratory Rate: 18 Temperature: 97.5 F Patient is:: Awake and Stable Stable to PACU at:: 13:34
[2024-01-17 13:45] LABS: POC Glucose,Bedside 86 (70-110)
[2024-01-17] MEDS: MORPHINE 2MG/ML SYRINGE 2 MG IV ×3 (14:02→14:12)
[2024-01-17 16:46] LABS: POC Glucose,Bedside 97 (70-110)
--- NOTE | 2024-01-18 07:22 | EXP.ANES.II ---
[facility] Anesthesia Record Part II Anesthesia Record Part II Discharge Time: 14:19 Destination: Surgical Day Care (OP Surgery) PACU nurse assessment reviewed?: Yes Patient Condition:: Good Anesthesia Complications:: None Swallowing reflex intact?: Yes Airway Patency: Patent Cyanosis?: No Blood Pressure: 113/93 SaO2: 96 Respiratory Rate: 18 Pulse Rate: 74 Temperature: 97.6 F Mental Status: Alert & Oriented Pain level:: 0 Nausea and/or vomitting:: None Intake, IV Amount: 0 Hydration: Adequate
[2024-01-18 07:24] VITALS: BP 113/93; PULSE 74; RESP 18; TEMP 36.4; O2SAT 96
== END 2024-01-17 14:47 | disposition home or self-care (01) ==
PROVIDERS: PCP Internal Medicine; Visit Provider Orthopaedic Surgery
PROC: (CPT 29870; principal; 2024-01-17 12:30)
DX: S83.241A Other tear of medial meniscus, current injury, right knee, initial encounter (principal); E55.9 Vitamin D deficiency, unspecified; S83.281A Other tear of lateral meniscus, current injury, right knee, initial encounter; I10 Essential (primary) hypertension; J44.9 Chronic obstructive pulmonary disease, unspecified; Z79.899 Other long term (current) drug therapy; W01.0XXA Fall on same level from slipping, tripping and stumbling without subsequent striking against object, initial encounter; Y92.512 Supermarket, store or market as the place of occurrence of the external cause
CPT/HCPCS: 29880; 82962; 93005; 96374; J1100; J1170; J2250; J2270; J2405; J3010

== ENCOUNTER 2024-03-26 06:54 | Emergency (ER) | payer BC, SELFPAY ==
[2024-03-26 06:55] VITALS: BP 120/83; PULSE 113; RESP 20; TEMP 36.6; O2SAT 94; BMI 32.4
--- NOTE | 2024-03-26 07:05 | PC.NURSE ---
Dr. Nolasco at [facility] for pt eval
--- NOTE | 2024-03-26 07:08 | CT_ITS ---
FINAL REPORT TECHNIQUE: Axial images were obtained of the lumbar spine by computed tomography. Coronal and sagittal reconstruction process performed. This study was performed with techniques to keep radiation doses as low as reasonably achievable (ALARA). Individualized dose reduction techniques using automated exposure control or adjustment of mA and/or kV according to the patient''s size were employed. CLINICAL HISTORY: midline pain after fall COMPARISON: None FINDINGS: Lumbar vertebrae show normal height. Disc spaces are well-preserved. There is no malalignment. L1-2: No significant spinal canal stenosis or neuroforaminal narrowing. L2-3: No significant spinal canal stenosis or neuroforaminal narrowing. L3-4: No significant spinal canal stenosis or neuroforaminal narrowing. L4-5: Moderate diffuse disc bulge. Mild to moderate spinal canal stenosis. Moderate to high-grade left neuroforaminal narrowing. L5-S1: Mild diffuse disc bulge. Moderate right neuroforaminal narrowing. IMPRESSION: Neuroforaminal narrowing on the left at L4-5 and on the right at L5-S1. No acute bony abnormality. Reviewed, Interpreted and Dictated by Ilir Lund MD Transcribed by Ami Delvalle Authenticated and [facility]
--- NOTE | 2024-03-26 07:08 | CT_ITS ---
FINAL REPORT TECHNIQUE: Axial images were obtained of the thoracic spine by computed tomography. Coronal and sagittal reconstruction process performed. This study was performed with techniques to keep radiation doses as low as reasonably achievable (ALARA). Individualized dose reduction techniques using automated exposure control or adjustment of mA and/or kV according to the patient's size were employed. CLINICAL HISTORY: midline pain after fall COMPARISON: None FINDINGS: There is moderate anterior osteophyte formation in the mid lower thoracic spine. There is a 20% compression deformity at the superior endplate of T11, age-indeterminate. There are no discrete linear fracture lines seen. There is 10 degree thoracic scoliosis convex to the right. IMPRESSION: 20% compression deformity superior endplate of T11, age-indeterminate. MRI could better assess for the possibility of underlying marrow edema. Moderate hypertrophic changes of degenerative disc disease in the lower thoracic spine. Reviewed, Interpreted and Dictated by Ilir Lund MD Transcribed by Ami Delvalle Authenticated and [facility]
--- NOTE | 2024-03-26 07:10 | HMH.EDGENADL ---
Discharge Plan Disposition Patient Disposition: Home, Self-Care Prescriptions Prescriptions: New hydrocodone-acetaminophen 5-325 mg tablet 1 tab PO Q6H PRN (Reason: pain) 3 Days Qty: 12 0RF No Action lisinopril 10 mg tablet 10 mg PO PM Qty: 90 4RF Rx Instructions: take the 20mg lisinoptil/HCTZ in the AM, and the lisinopril 10mg in the PM. hydrocodone-acetaminophen 5-325 mg tablet 1 tab PO TID PRN (Reason: pain) Qty: 90 0RF hydrocodone-acetaminophen 5-325 mg tablet 1 tab PO TID PRN (Reason: pain) Qty: 90 0RF lidocaine 5 % adhesive patch,medicated 1 patch topical DAILY Qty: 30 3RF Rx Instructions: leave on most painful area for up to 12 hrs sucralfate [Carafate] 1 gram tablet 1 g PO QACHS Qty: 120 2RF albuterol sulfate [Ventolin HFA] 90 mcg/actuation HFA aerosol inhaler 2 inh inhalation Q6H PRN (Reason: shortness of breath or wheezing) 90 Days Qty: 18 3RF carvedilol 12.5 mg tablet See Rx Instructions .ROUTE .COMPLEX Qty: 60 2RF Dose Instruction: TAKE ONE TABLET BY MOUTH TWICE DAILY Rx Instructions: TAKE ONE TABLET BY MOUTH TWICE DAILY omeprazole 40 mg capsule,delayed release(DR/EC) See Rx Instructions .ROUTE .COMPLEX Qty: 30 2RF Dose Instruction: TAKE ONE CAPSULE BY MOUTH EVERY DAY Rx Instructions: TAKE ONE CAPSULE BY MOUTH EVERY DAY atorvastatin 10 mg tablet See Rx Instructions .ROUTE .COMPLEX Qty: 30 2RF Dose Instruction: TAKE ONE TABLET BY MOUTH ONCE A DAY Rx Instructions: TAKE ONE TABLET BY MOUTH ONCE A DAY lisinopril-hydrochlorothiazide 20-25 mg tablet See Rx Instructions .ROUTE .COMPLEX Qty: 30 2RF Dose Instruction: TAKE ONE TABLET BY MOUTH EVERY MORNING Rx Instructions: TAKE ONE TABLET BY MOUTH EVERY MORNING risperidone 2 mg tablet See Rx Instructions .ROUTE .COMPLEX Qty: 30 2RF Dose Instruction: TAKE ONE TABLET BY MOUTH EVERY DAY AT BEDTIME Rx Instructions: TAKE ONE TABLET BY MOUTH EVERY DAY AT BEDTIME diclofenac sodium 1 % gel See Rx Instructions .ROUTE .COMPLEX Qty: 100 1RF Dose Instruction: APPLY 2 GRAMS TOPICALLY TO AFFECTED AREA(S) FOUR TIMES A DAY Rx Instructions: APPLY 2 GRAMS TOPICALLY TO AFFECTED AREA(S) FOUR TIMES A DAY Stiolto Respimat 2.5-2.5 mcg/actuation mist See Rx Instructions .ROUTE .COMPLEX Qty: 4 2RF Dose Instruction: INHALE 2 PUFFS BY MOUTH ONCE A DAY FOR COPD Rx Instructions: INHALE 2 PUFFS BY MOUTH ONCE A DAY FOR COPD promethazine 12.5 mg tablet 12.5 mg PO TID PRN (Reason: nausea and vomiting) Qty: 20 2RF Ozempic 1 mg/dose (4 mg/3 mL) pen injector 1 mg SQ WEEKLY Qty: 3.75 2RF bupropion HCl 150 mg tablet sustained-release 12 hr See Rx Instructions .ROUTE .COMPLEX Qty: 60 0RF Dose Instruction: TAKE ONE TABLET BY MOUTH TWICE DAILY Rx Instructions: TAKE ONE TABLET BY MOUTH TWICE DAILY Referrals Follow up/Referrals: Doroteo Elliott DO [Primary Care Provider] - See instructions Activity Restrictions/Add. Instructions Additional Instructions/Restrictions: You have a T11 compression fracture. Given your chronic opiate use it will be very difficult to get on top of your pain. I have prescribed you an additional few days of hydrocodone that you may take on top of your 5 mg that you take regularly. I recommend that you call immediately your pain clinic to follow-up with them to discuss further interventions. Return with any loss of bowel or bladder continence lower extremity weakness numbness between your legs or other concerns Clinical Impressions Clinical Impression: Compression fracture of T11 vertebra Print Language Print Language: Upper Sorbian Discharge ED Provider: Simon Nolasco General Adult HPI General Chief complaint: PAIN Stated complaint: AO 0550 fall rib pain Time Seen by Provider: 03/26/24 07:03 Mode of Arrival: Ambulatory Source of Information: Patient Limitations: No Limitations Description of Symptoms (Recalled from ER Triage Doc. by RN): Pt presents to ED for rib pain after a fall. Pt denies LOC. Pt denies any other pain. Pt does take a baby ASA daily. Pt is A&O*4. History of Present Illness HPI narrative: Patient is a 63-year-old female presenting today with what she describes as rib pain. Patient states she was walking outside and fell on concrete steps. She received a direct blow to the mid aspect of her back. Describes pain as being in the midline not off to the sides. No significant difficult time with breathing. Denies any head neck chest abdomen pelvis or long bone injuries. She is not on any anticoagulants. She does take a daily aspirin. She took a hydrocodone that she has prescribed prior to arrival. Related Data Previous Rx's ?Medication ?Instructions ?Recorded lidocaine 5 % topical patch 1 patch topical DAILY Pain #30 ea 12/21/22 sucralfate 1 gram tablet (Carafate) 1 g PO QACHS #120 tabs 03/21/23 hydrocodone 5 mg-acetaminophen 325 1 tab PO TID PRN pain #90 tabs 12/29/23 mg tablet hydrocodone 5 mg-acetaminophen 325 1 tab PO TID PRN pain #90 tabs 12/29/23 mg tablet lisinopril 10 mg tablet 10 mg PO PM High blood pressure 12/29/23 #90 tabs albuterol sulfate 90 mcg/actuation 2 inh inhalation Q6H PRN shortness 01/09/24 aerosol inhaler (Ventolin HFA) of breath or wheezing 90 days #18 grams atorvastatin 10 mg tablet See Rx Instructions .Route 02/14/24 .COMPLEX #30 tabs carvedilol 12.5 mg tablet See Rx Instructions .Route 02/14/24 .COMPLEX #60 tabs diclofenac sodium 1 % topical gel See Rx Instructions .Route 02/14/24 .COMPLEX #100 grams lisinopril 20 See Rx Instructions .Route 02/14/24 mg-hydrochlorothiazide 25 mg tablet .COMPLEX #30 tabs omeprazole 40 mg capsule,delayed See Rx Instructions .Route 02/14/24 release .COMPLEX #30 caps risperidone 2 mg tablet See Rx Instructions .Route 02/14/24 .COMPLEX #30 tabs tiotropium 2.5 mcg-olodaterol 2.5 See Rx Instructions .Route 02/14/24 mcg/actuation mist for inhalation .COMPLEX #4 grams (Stiolto Respimat) promethazine 12.5 mg tablet 12.5 mg PO TID PRN nausea and 02/22/24 vomiting #20 tabs semaglutide 1 mg/dose (4 mg/3 mL) 1 mg (0.75 mL) SQ WEEKLY E11.9 02/29/24 subcutaneous pen injector (Ozempic) #3.75 mL bupropion HCl 150 mg tablet,12 hr See Rx Instructions .Route 03/12/24 sustained-release .COMPLEX #60 tabs hydrocodone 5 mg-acetaminophen 325 1 tab PO Q6H PRN pain 3 days #12 03/26/24 mg tablet tabs Allergies Allergy/AdvReac Type Severity Reaction Status Date / Time Penicillins [PENICILLINS] Allergy Unknown Verified 01/27/24 11:52 phenobarbital [PHENOBARBITAL] Allergy Unknown Verified 01/27/24 11:52 Sulfa (Sulfonamide Allergy Unknown Verified 01/27/24 11:52 Antibiotics) [SULFA (SULFONAMIDE ANTIBIOTICS)] alprazolam [From Xanax] Allergy Verified 01/27/24 11:52 Barbiturates Allergy Verified 01/27/24 11:52 [facility] Disclaimer: The information contained in this section may have been updated after the patient was seen, as this information can be updated by other users. Medical History Diabetes mellitus, type 2 Stopped smoking between 1 and 5 years ago Restrictive lung disease Dyspnea on exertion ILD (interstitial lung disease) Right knee injury GERD (gastroesophageal reflux disease) Anxiety Overdose Hyperlipidemia Last lipid panel was excellent. Will continue her current atorvastatin dose. Depression Hypertension She does not bring back blood pressure recordings. I have asked her to do this next time as I have asked her in previous visits. We will switch to lisinopril that makes complete sense to be giving the diuretic in the morning and not in the evening. I have no idea why this ended up being switched. I made it clear on the prescriptions that she is to get the 10 mg at bedtime and the combination product in the morning. COPD (chronic obstructive pulmonary disease) Patient continues to smoke and the inhalers are helping her breathing. Strongly encouraged to quit tobacco. Vitamin D deficiency (~09/28/17) Last vitamin D was within normal limits. Will have her stop her weekly vitamin D and just continue on the daily. Surgical History History of arthroplasty of left knee History of colonoscopy H/O lumpectomy H/O breast biopsy H/O arthroscopy of left knee History of foot surgery Family History Other No significant family history Social History Smoking Status: Former smoker second hand exposure: No alcohol intake: never substance use type: denies use current occupational status: retired and disabled Travel in the last 8 weeks: None housing: house current occupational exposures/hazards: No caffeine: Yes ROS Obtained: Yes All systems reviewed & no additional complaints except as documented Physical Exam General General appearance: alert and in no apparent distress Head Head exam: atraumatic and normocephalic Neck Neck exam: Absent tenderness Respiratory Respiratory exam: Present normal lung sounds bilaterally; Absent respiratory distress Cardiovascular Cardiovascular exam: Present regular rate and normal rhythm Abdominal Exam Abdominal exam: Present soft; Absent distention or tenderness Extremities Exam Extremities exam: Present other (All long wounds evaluated without any significant evidence of soft tissue deformities or injuries) Back Exam Back exam: Present tenderness (There is midline lower thoracic and upper lumbar tenderness to palpation no significant palpation the paraspinal musculature along the rib margins) Neurological Exam Neurological exam: Present alert and oriented X3 Medical Decision Making Joel Inquiry Pt receiving controlled substance: No Vital Signs: 03/26/24 06:55 03/26/24 07:30 03/26/24 08:01 Temperature 97.8 F Temperature Source Oral Pulse Rate 105 H 102 H Pulse Rate [Left] 113 H Respiratory Rate 20 Blood Pressure 134/69 113/62 Blood Pressure [Right Arm] 120/83 Blood Pressure Mean [Right Arm] 95 02 Sat by Pulse Oximetry 94 L 95 97 Oxygen Delivery Method Nasal Cannula Nasal Cannula Nasal Cannula Oxygen Flow Rate (LPM) 3 2 2 03/26/24 08:30 Temperature Temperature Source Pulse Rate 111 H Pulse Rate [Left] Respiratory Rate Blood Pressure 106/87 L Blood Pressure [Right Arm] Blood Pressure Mean [Right Arm] 02 Sat by Pulse Oximetry 97 Oxygen Delivery Method Nasal Cannula Oxygen Flow Rate (LPM) 2 Orders (Tests/Meds): ED MEDICATIONS Discontinued Medications Generic Name Dose Route Start Last Admin Trade Name Freq PRN Reason Stop Dose Admin Morphine Sulfate 4 mg 03/26/24 08:37 03/26/24 08:46 Morphine 4mg/Ml Syringe IM 03/26/24 08:38 4 mg ONCE ONE Administration ORDERS Category Date Time Status CT lumbar spine wo con Stat Cat Scan 03/26/24 07:[address] thoracic spine wo con Stat Cat Scan 03/26/24 07:08 Completed Medical Decision Narrative: Well-appearing 63-year-old female presenting today with fall and blunt injury to the mid aspect of her spine and lower thoracic and upper lumbar regions. She is [place] CT head negative Nexus negative she has no chest abdomen pelvis or other long bone discomfort she does not have any significant pain in the rib margins and with lateral rib compression no significant pain. Rib fractures are unlikely at this point. Will get CT scans of T and L spine and reassess. She already had a hydrocodone prior to arrival not address her pain any further. CT scans performed which I first interpreted which show a T11 20% anterior wedge compression fracture no evidence of multiple column injury no other significant abnormalities. Neurologic exam is normal no evidence of cauda equina syndrome etc. She has a pain medicine specialist and I discussed this with her and she will follow-up closely with them. I did give her 2 extra days of hydrocodone but advised that she be very careful with taking additional doses and she understands to follow-up with her pain medicine specialist and return with any worsening symptoms Critical Care Critical Care Time Critical Care Time: No
--- NOTE | 2024-03-26 07:17 | PC.NURSE ---
Pt gone to RAD via wheelchair
[2024-03-26 07:30] VITALS: BP 134/69; PULSE 105; O2SAT 95
--- NOTE | 2024-03-26 07:33 | PC.NURSE ---
Pt back to room from [facility]
[2024-03-26 08:01] VITALS: BP 113/62; PULSE 102; O2SAT 97
[2024-03-26 08:30] VITALS: BP 106/87; PULSE 111; O2SAT 97
--- NOTE | 2024-03-26 08:35 | PC.NURSE ---
Rounded on pt. Pt advised that she was in pain. Dr. Nolasco made aware.
[2024-03-26] MEDS: MORPHINE 4MG/ML SYRINGE 4 MG IM (08:46)
--- NOTE | 2024-03-26 08:47 | PC.NURSE ---
Dr. Nolasco and PA student at bedside talking w patient about CT results
[2024-03-26 08:53] VITALS: BP 106/87; PULSE 106; RESP 20; TEMP 36.6; O2SAT 96
--- NOTE | 2024-03-26 09:02 | PC.NURSE ---
Advised pt. to call a ride, she states she has no one to call and she is going home. Discussed risks of leaving after receiving pain medication, pt states she is going home.
== END 2024-03-26 09:03 | disposition home or self-care (01) ==
PROVIDERS: Emergency Provider Student in an Organized Health Care Education/Training Program; PCP Internal Medicine
DX: S22.080A Wedge compression fracture of T11-T12 vertebra, initial encounter for closed fracture (principal); W10.8XXA Fall (on) (from) other stairs and steps, initial encounter
CPT/HCPCS: 72128; 72131; 96372; 99284; J2270

== ENCOUNTER 2024-06-07 09:02 | Outpatient (CLI) | payer BC, SELFPAY ==
--- NOTE | 2024-06-07 09:02 | XR_ITS ---
FINAL REPORT CLINICAL HISTORY: multiple fx's COMPARISON: None FINDINGS: Using L1-4, the bone mineral density of the spine is 0.972 g/cm2, corresponding to T-score of -0.7 which is within normal limits but likely falsely elevated secondary to hypertrophic changes. Using the left hip, the bone mineral density of the femoral neck is 0.707 g/cm2, corresponding to a T-score of -1.3 which is consistent with low bone density. Using the right hip, the bone mineral density of the femoral neck is 0.656 g/cm2, corresponding to a T-score of -1.7 which is consistent with low bone density. FRAX not reported because the patient is being treated for osteoporosis. NOTE: T-score: Standard deviation compared with peak bone mass of young adult mean. *Following the recommendations of the International Society of Bone densitometry, classification of hip BMD is based on the lower of two T-scores; total hip or femoral neck. IMPRESSION: Diminished bone mineral density consistent with low bone density. Reviewed, Interpreted and Dictated by Stan Verdin III, MD Transcribed by Ami Delvalle Authenticated and [facility]
== END 2024-06-07 23:59 | disposition home or self-care (01) ==
LOC: RAD 09:02
PROVIDERS: PCP Internal Medicine; Visit Provider Internal Medicine
DX: S22.080A Wedge compression fracture of T11-T12 vertebra, initial encounter for closed fracture (principal); M19.90 Unspecified osteoarthritis, unspecified site
CPT/HCPCS: 77080

== ENCOUNTER 2024-07-03 06:59 | Outpatient (CLI) | payer BC, SELFPAY ==
--- NOTE | 2024-07-03 07:11 | CA_ITS ---
FINAL REPORT TECHNIQUE: Ultrasound images of the kidneys were obtained. Duplex Doppler of the renal arteries, RAR and RI also obtained. Spectral analysis was performed. CLINICAL HISTORY: HTN, COPD, Obesity, DM COMPARISON: None FINDINGS: Limited images of the liver parenchyma demonstrate normal echogenicity. The right kidney measures 9.8 cm in length. It is normal echogenicity. There is no hydronephrosis. The peak systolic velocity of the right renal artery measures up to 332.5 cm/s. RI is 0.77. The renal artery/aortic ratio: 3.1. The left kidney measures 11.5 cm in length. It is normal echogenicity. There is no hydronephrosis. The peak systolic velocity of the left renal artery measures up to 330.5 cm/s. RI is 0.72. The renal artery/aortic ratio: 3.1. IMPRESSION: There is elevation of the peak systolic velocity in the renal arteries on either side, however the renal artery to aortic ratio is within normal limits. This therefore represents less than 60% luminal diameter stenosis in either renal artery. Recommend CTA or catheter angiography for further evaluation as clinically indicated. Reviewed, Interpreted and Dictated by Poppy Harley MD Transcribed by Sonia Green Authenticated and [facility]
[2024-07-03 07:33] LABS: Albumin Level 4.2 g/dl (3.5-5.0); Anion Gap 8.5 mEq/L (5-15); Blood Urea Nitrogen 16 mg/dl (7-17); Calcium 9.7 mg/dl (8.4-10.2); Carbon Dioxide 34 mmol/L (22.0-30.0); Chloride 95 mmol/L (98-107); Cholesterol 171 mg/dl (140-200); Estimated Glomerular Filt Rate 124 ml/min (>60); GFR (African American) 150 ML/MIN (>60); Glucose 96 mg/dl (74-100); Phosphorous 4.2 mg/dl (2.5-4.5); Potassium 4.5 mmoL/L (3.5-5.1); Sodium 133 mmol/L (136-145); Triglycerides 123 mg/dl (30-150); VLDL Cholesterol 25 mg/dL (0-40)
[2024-07-03 07:41] LABS: Chol/HDL Ratio 1.7 (1-3.5); HDL Cholesterol 99 mg/dl (40-60)
[2024-07-03 07:44] LABS: Direct LDL Cholesterol 57.36 mg/dL (100-129)
== END 2024-07-03 23:59 | disposition home or self-care (01) ==
LOC: RT 07:00
PROVIDERS: PCP Internal Medicine; Visit Provider Internal Medicine
DX: I10 Essential (primary) hypertension (principal); E78.2 Mixed hyperlipidemia; E11.9 Type 2 diabetes mellitus without complications; E66.9 Obesity, unspecified; Z68.33 Body mass index [BMI] 33.0-33.9, adult
CPT/HCPCS: 36415; 80061; 80069; 93976

== ENCOUNTER 2024-10-25 08:28 | Outpatient (CLI) | payer OTHER, SELFPAY ==
[2024-10-25 10:20] LABS: Albumin Level 4.4 g/dl (3.5-5.0); Chloride 96 mmol/L (98-107); Potassium 5.3 mmoL/L (3.5-5.1); Sodium 133 mmol/L (136-145)
[2024-10-25 10:23] LABS: Alanine Aminotransferase 57 U/L (12-78); Albumin/Globulin Ratio 1.8 (1.1-1.8); Alkaline Phosphatase 73 U/L (38-126); Anion Gap 10.3 mEq/L (5-15); Aspartate Amino Transferase 58 U/L (14-36); Bilirubin,Direct 0.3 mg/dl (0.0-0.4); Bilirubin,Indirect 0.6 mg/dL (0.0-0.9); Bilirubin,Total 0.9 mg/dl (0.2-1.3); Bilirubin,Unconjugated 0.6 mg/dL (0.0-1.1); Blood Urea Nitrogen 18 mg/dl (7-17); Calcium 9.5 mg/dl (8.4-10.2); Carbon Dioxide 32 mmol/L (22.0-30.0); Estimated Glomerular Filt Rate 101 ml/min (>60); GFR (African American) 122 ML/MIN (>60); Globulin 2.4 g/dL (1.3-3.2); Glucose 85 mg/dl (74-100); Total Protein,Serum 6.8 g/dl (6.3-8.2)
[2024-10-25 10:56] LABS: Hemoglobin A1C 4.5 % (4.0-6.0)
== END 2024-10-25 23:59 | disposition home or self-care (01) ==
LOC: LAB 08:29
PROVIDERS: PCP Internal Medicine; Visit Provider Internal Medicine
DX: E11.9 Type 2 diabetes mellitus without complications (principal); I10 Essential (primary) hypertension
CPT/HCPCS: 36415; 80053; 80076; 83036

== ENCOUNTER 2024-12-11 07:08 | Outpatient (CLI) | payer MEDICARE, OTHER, SELFPAY ==
--- NOTE | 2024-12-11 07:30 | CT_ITS ---
FINAL REPORT TECHNIQUE: Thin section axial images were obtained through the lungs using a low-dose technique per lung cancer screening protocol. Reconstruction images were obtained using the axial data. Exam was performed using dose reduction technique. CLINICAL HISTORY: lung cancer screening, quit smoking 10 yrs ago, smoked 2 packs per day x 15 yrs COMPARISON: None FINDINGS: CTDLvol: 2.90 DLP: 98.21 Former smoker, quit 10 years ago 30 pack year history Lungs: No acute pulmonary abnormality. No suspicious nodules. Lymph nodes: No thoracic lymphadenopathy. Mediastinum: Heart size is normal. Pleura/pericardium: No pleural or pericardial effusion. Other: No acute abnormality in the upper abdomen. IMPRESSION: No suspicious pulmonary nodule or mass. Lung RADS: 1 Recommendation: 12-month follow-up LDCT. Reviewed, Interpreted and Dictated by Poppy Harley MD Transcribed by Sonia Green Authenticated and [facility]
== END 2024-12-11 23:59 | disposition home or self-care (01) ==
LOC: RAD 07:09
PROVIDERS: PCP Internal Medicine; Visit Provider Internal Medicine
DX: Z87.891 Personal history of nicotine dependence (principal)
CPT/HCPCS: 71271

== ENCOUNTER 2025-02-04 17:05 | Emergency (ER) | payer MEDICARE, OTHER, SELFPAY ==
[2025-02-04 17:18] VITALS: BP 177/79; PULSE 102; RESP 16; TEMP 36.9; O2SAT 94; BMI 32.3
--- OUTSIDE RECORDS SUMMARY | 2025-02-04 17:22 | XMS_ITS | Data Portability ---
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 MORNING active Not Available Not Available No t Available lidocaine 5 % topical patch APPLY 1 PATCH TOPICALLY TO THE AFFECTED AREA ONCE DAILY AND LEAVE IN PLACE FOR 12 HOURS, THEN REMOVE AND LEAVE OFF FOR 12 HOURS active Not Available Not Available No t Available hydrochlorot hiazide 12.5 mg capsule TAKE ONE CAPSULE BY MOUTH EVERY DAY NEEDED FOR FLUID RETENTION active Not Available Not Available No t Available docusate sodium 100 mg capsule TAKE ONE CAPSULE BY MOUTH TWICE DAILY NEEDED FOR constipatio n active Not Available Not Available No t Available Senna Laxative 8.6 mg tablet TAKE ONE TABLET BY MOUTH TWICE DAILY NEEDED FOR constipatio n active Not Available Not Available No t Available lisinopril 20 mg-hydrochlo rothiazide 25 mg tablet active Not Available Not Available Not Available mupirocin 2 % topical ointment APPLY TOPICALLY TO THE AFFECTED AREA(S) TWICE DAILY active Not Available Not Available Not Available ergocalcifer ol (vitamin D2) 1,250 mcg (50,000 unit) capsule TAKE ONE CAPSULE BY MOUTH EVERY 2 WEEKS active Not Available Not Available No t Available methylpredni solone 4 mg tablets in a dose pack active Not Available Not Available No t Available albuterol sulfate HFA 90 mcg/actuatio n aerosol inhaler active Not Available Not Available Not Available ondansetron 4 mg disintegrati ng tablet DISSOLVE ONE TABLET in MOUTH EVERY 8 HOURS NEEDED FOR NAUSEA AND VOMITING active Not Available Not Available No t Available cefdinir 300 mg capsule active Not Available Not Available N ot Available oxycodone 5 mg tablet TAKE ONE TABLET BY MOUTH EVERY 4 HOURS NEEDED FOR PAIN MAY CAUSE DROWSINESS active Not Available Not Available N ot Available TobraDex 0.3 %-0.1 % eye drops,suspen samantha INSTILL ONE DROP into right eye FOUR TIMES DAILY FOR 1 WEEK active Not Available Not Available No t Available escitalopram 10 mg tablet TAKE ONE TABLET BY MOUTH EVERY DAY active Not Available Not Available No t Available cholecalcife rol (vitamin D3) 25 mcg (1,000 unit) tablet TAKE ONE TABLET BY MOUTH EVERY DAY active Not Available Not Available No t Available cholecalcife rol (vitamin D3) 1,250 mcg (50,000 unit) capsule active Not Available Not Available Not Available oxycodone 10 mg tablet active Not Available Not Available No t Available diclofenac 1 % topical gel active Not Available Not Available Not Available Stiolto Respimat 2.5 mcg-2.5 mcg/actuatio n solution for inhalation INHALE TWO PUFFS BY MOUTH EVERY DAY active Not Available Not Available No t Available Ozempic 0.25 mg or 0.5 mg (2 mg/1.5 mL) subcutaneous pen injector active Not Available Not Available Not Available Ozempic 1 mg/dose (4 mg/3 mL) subcutaneous pen injector active Not Available Not Available Not Available Ozempic 0.25 mg or 0.5 mg (2 mg/3 mL) subcutaneous pen injector active Not Available Not Available Not Available Vitals Date Recorded Respiratory rate Body weight Heart rate Body temperature Systolic blood pressure Diastolic blood pressure Provider Name and Address Organization Details Last Updated DateTime 4 16 /min 38458.4 7 g 101 /min 98.1 [degF] 120 mm[Hg] 81 mm[Hg] [facility] 4 10:42:31 Date Recorded Body weight Respiratory rate Body temperature Heart rate Systolic blood pressure Diastolic blood pressure Provider Name and Address Organization Details Last Updated DateTime 4 86572.4 7 g 16 /min 97.9 [degF] 73 /min 148 mm[Hg] 87 mm[Hg] Kelly [facility] 4 08:15:59 Date Recorded Body weight Body mass index (BMI) Body height Body temperature Heart rate Respiratory rate Systolic blood pressure Diastolic blood pressure Provider Name and Address Organization Details Last Updated DateTime 4 93444.8 8 g 33.1 kg/m2 165.1 cm 98 [degF] 112 /min 16 /min 168 mm[Hg] 61 mm[Hg] Cong [facility] 4 08:31:33 Date Recorded Body height Respiratory rate Provider N leon and Address Organization Details Last Updated DateTime 05/31/2024 165.1 cm 16 /min Mari [facility] 05/31/2024 14:43:34 Social History Question Answer Notes LastModified by Organizat ion Details LastModified Time Tobacco Smoking Status Never Smoker [facility] 10/06/2023 10:40:50 What Is Your Level Of Caffeine Consumption? Moderate Information not available 10/06/2023 Which Illicit Or Recreational Drugs Have You Used? THC Information not available 10/06/2023 Sex: Unknown Functional Status Question Answer Note LastModified by Organizat ion Details LastModified Time Do you use any illicit or recreational drugs? Yes Information not available 10/06/2023 What is your level of alcohol consumption? None Information not available 10/06/2023 Mental Status None recorded. Family History Nothing Reported. 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 Obstetrics History GPAL:G 0 P 0 0 0 0 Immunizations Vaccine Type Date Status Note Provider Nam e and Address Organization Details Recorded Time SARS-COV-2 (COVID-19) vaccine, UNSPECIFIED 09/08/2023 completed [facility] 10/06/2023 10:39:04 Past Encounters Encounter ID Performer Location Encounter Start Date Encounter Closed Date Diagnosis/Indication Diagnosis SNOMED-CT Code Diagnosis ICD10 Code Diagnosis Note [id number] HENRIK WARD MD [address] [place] [id number] 4 10/06/2023 10:16:16 10/06/2023 11:22:50 Long-term current use of opiate analgesic drug 5227385282 39131 Z79.891 Diagnostic /Lab: Order Presumptiv e UDT (necessary for rapid results) with Definitive confirmati on for chronic pain patient, to define treatment and reinforce therapeuti c compliance ; the following apply:[Pre sumptive UDT includes: (Amp, Lucinda, Truman, Bup, THC, RHETT, ETOH, Meth, Opi, Oxy )]*-Patien t is receiving controlled medication s.*-Presum ptive UDT to identify presence of illicit/no n-prescrib ed substance( s) - Confirm positive for ongoing safe prescribin g of controlled substances .*-Presump tive UDT to identify presence of licit/pres cribed substance( s)-Confirm unexpected results, identify specific drug(s) in large class and ensure appropriat e use of prescribed medication (s). 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 Low back pain 984164235 M54.50 Pain of ri ght knee joint 4328030320 60347 M25.561 Pain in right foot 40534 29017 52535 M79.426 [id number] Gracy Cardona, MACADAM RAKER [facility] [place] [phone] 4 12/01/2023 07:59:26 12/01/2023 12:48:53 Long-term current use of opiate analgesic drug [id number] 39485 Z79.891 Pain in right foot 59113 79077 54105 M79.671 Pain of ri ght knee joint 2159313661 08848 M25.561 Degenerati on of lumbar intervertebral disc 32252373 M51.36 [id number] Anette Nolasco, MACADAM RAKER [facility] [place] [phone] 4 03/06/2024 08:25:55 03/06/2024 10:15:08 Degeneration of lumbar intervertebral disc 99214430 M51.36 Pain in right foot 54705 43923 93655 M79.671 Pain of ri ght knee joint 0197154320 48108 M25.561 Long-term current use of opiate analgesic drug [id number] 49950 Z79.891 Diagnostic /Lab: Order Presumptiv e UDT (necessary for rapid results) with Definitive confirmati on for chronic pain patient, to define treatment and reinforce therapeuti c compliance ; the following apply: [Presumpti ve UDT includes: (Amp, Lucinda, Truman, Bup, THC, RHETT, ETOH, Meth, Opi, Oxy )] *-Patient is receiving controlled medication s. *-Presumpt brodie UDT to identify presence of illicit/no n-prescrib ed substance( s) - Confirm positive for ongoing safe prescribin g of controlled substances . *-Presumpt brodie UDT to identify presence of licit/pres cribed substance( s)-Confirm unexpected results, identify specific drug(s) in large class and ensure appropriat e use of prescribed medication (s). *-Definiti ve UDT inadequate ly detected by Presumptiv e UDT (gabapenti n, pregabalin , tramadol, fentanyl, tapentadol and carisoprod ol). HP2 (CBC/CMP/G GT) CBC - ordered to monitor the effects of prescribed medication CMP/GGT - ordered to obtain baseline levels for renal and hepatic functions and electrolyt e statusdraw n to monitor the fdc effects of current medication . [id number] Anette Noalsco, MACADAM RAKER [address] [place] [address] 4 05/02/2024 08:02:45 05/03/2024 12:11:46 Pain in right foot [id number] 37182 M79.671 Chronic low back pain 27 6568735 M54.50 [id number] Meryl Alexandra, MACADAM RAKER [address] [place] [address] 4 05/31/2024 14:17:27 05/31/2024 15:14:34 Degeneration of lumbar intervertebral disc 29943803 M51.369 Pain of ri ght knee joint 0912127379 65673 M25.561 Health Concerns Section Related Observation LastModified by Organization Detai ls LastModified Time None Recorded Concern Status LastModified by Organization Details LastModified Time None Recorded Advance Directives Directive None Recorded Payers Insurance Date Sequence Insurance Name Policy Number Policy Villanueva Covered Member ID Villanueva Member ID Guarantor Name 10/13/2024 1 [employer] [facility] (MEDICAID O) Reva Suresh [id number] Reva Suresh 07/16/2024 2 [place] [place]/TRADITIO NAL Reva Suresh [id number] Reva Suresh 07/16/2024 1 [employer] [facility] (MEDICAID HMO) Reva Suresh [id number] Reva Suresh 07/16/2024 1 [place] [id number] Reva Suresh [id number] Reva Suresh Notes Date Note Type Note Provider Name and Address Organization Details Recorded Time 10/06/2023 text/html TIMMY report reviewed and compliant. Pain is right foot and lower back and her knees. Pain is searing pain and knees. Pain keeps her awake at night. Pain is constant pain, Pain is intense nad severe. Pain made better by meds Oxycodone 10 TID, Pain made worse by sitting and standing. Pain does radiate. Patient is NEW patient. Medical management none but she went to neighbor and receives a hydrocodone. She was counseled about NOT doing this. No MRI is available HENRIK WARD MD [address], [place], [address], [facility] 10/06/2023 11:01:43 12/01/2023 text/html Winifred [place], a 63 year old female patient is here today for follow-up office visit and medication refills. Since last OV, she had her yearly wellness visit with PCP-lab work done.She reports chronic pain is right foot and lower back and her knees. She describes pain as constant, dull aching. LBP radiates down BLE to knees, R>L. No parasthesia. Pain is worsened by sitting, standing and improves with medication. Medication provides 30% relief of pain for around 6 hours without SE. Gracy Cardona APRN [address], [place], [address], [facility] 03/01/2024 15:48:31 03/06/2024 text/html CC: back and tico nt pain She is here to be seen in follow up for her chronic pain complaints. Her medication is partially effective, and she tolerates it without SE. 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 She recently had a left TKR and right arthroscopic meniscal repair. Anette Mayank Nolasco, EMMANUEL [address], [place], [address], [place] [facility] 03/07/2024 13:10:37 05/02/2024 text/html CC: back pain Patient verbally consented to participate in a telemedicine visit today via real time audio & video. Patient understood that by participating in a telemedicine visit that their cellular and data minutes will be used, that the session was not being recorded and that their personal health information is protected. The patient was seen via telemedicine visit from my office location today; patient location: Patient's home. She has had a T11 Kyphoplasty done recently, and did well with the procedure. She reports that she bent over yesterday to put on socks, and had an acute onset of back pain, accompanied by a popping sound. She was seen in the ER and found that she has also now fractured T10. This will be repaired in the near future, as well. She is having poorly controlled back pain, and states that despite being given additional pain meds after the surgery, she is still very uncomfortable. She is asking for a temporary increase in her medication. Anette Nolasco APRN [address], [place], [address], [facility] 05/29/2024 09:44:41 OBGyn Episode No OBEpisode recorded.
[2025-02-04 17:25] VITALS: BP 177/79; PULSE 102; RESP 16; TEMP 36.9; O2SAT 94
[2025-02-04 17:45] VITALS: BP 153/67; PULSE 99; RESP 18; O2SAT 97
--- NOTE | 2025-02-04 17:45 | CT_ITS ---
PROCEDURE INFORMATION: Exam: CT Cervical Spine Without Contrast Exam date and time: 02/04/2025 6:37 PM Age: 64 years old Clinical indication: Injury or trauma; Fall; Blunt trauma; Additional info: Fall, struck forehead on ground TECHNIQUE: Imaging protocol: Computed tomography of the cervical spine without contrast. Radiation optimization: All CT scans at this facility use at least one of these dose optimization techniques: automated exposure control; mA and/or kV adjustment per patient size (includes targeted exams where dose is matched to clinical indication); or iterative reconstruction. COMPARISON: CT HEAD/BRAIN WO CON 02/04/2025 6:35 PM FINDINGS: Bones: Mild loss of intervertebral disc space with degenerative changes involving C4 through C7. Lungs: Lung apices are normal. Soft tissues: Unremarkable. IMPRESSION: No acute cervical spine fracture.
--- NOTE | 2025-02-04 17:45 | CT_ITS ---
PROCEDURE INFORMATION: Exam: CT Head Without Contrast Exam date and time: 02/04/2025 6:35 PM Age: 64 years old Clinical indication: Injury or trauma; Fall; Blunt trauma (contusions or hematomas); Additional info: Fell, struck nose on floor TECHNIQUE: Imaging protocol: Computed tomography of the head without contrast. Radiation optimization: All CT scans at this facility use at least one of these dose optimization techniques: automated exposure control; mA and/or kV adjustment per patient size (includes targeted exams where dose is matched to clinical indication); or iterative reconstruction. COMPARISON: No relevant prior studies available. FINDINGS: Brain: There is moderate diffuse cerebral volume loss present. Multiple subcortical and deep hypoattenuating white matter foci are present, likely related to small vessel senescent changes and can also be seen with prior infectious / inflammatory insult, or prior traumatic events. No hyperattenuating foci are identified to suggest acute intracranial hemorrhage. Cerebral ventricles: No ventriculomegaly. Paranasal sinuses: Visualized sinuses are unremarkable. No fluid levels. Mastoid air cells: Visualized mastoid air cells are well aerated. Bones: Moderate soft tissue swelling of the nose with nondisplaced fracture of the nasal bone. Plate and screw fixation of the right mandible. Soft tissues: See Bones finding. IMPRESSION: 1. Multiple subcortical and deep hypoattenuating white matter foci are present, likely related to small vessel senescent changes and can also be seen with prior infectious / inflammatory insult, or prior traumatic events. 2. No hyperattenuating foci are identified to suggest acute intracranial hemorrhage. 3. Moderate soft tissue swelling of the nose with nondisplaced fracture of the nasal bone.
--- NOTE | 2025-02-04 17:45 | CT_ITS ---
PROCEDURE INFORMATION: Exam: CT Chest Without Contrast; Diagnostic Exam date and time: 02/04/2025 6:43 PM Age: 64 years old Clinical indication: Injury or trauma; Fall; Blunt trauma (contusions or hematomas); Additional info: Posterolateral rib pain after fall TECHNIQUE: Imaging protocol: Diagnostic computed tomography of the chest without contrast. Radiation optimization: All CT scans at this facility use at least one of these dose optimization techniques: automated exposure control; mA and/or kV adjustment per patient size (includes targeted exams where dose is matched to clinical indication); or iterative reconstruction. COMPARISON: CT LUNG SCREENING 12/11/2024 7:39 AM FINDINGS: Lungs: No acute infiltrates.. Pleural spaces: Unremarkable. No pneumothorax. No pleural effusion. Heart: See Vasculature finding. Coronary arteries: No coronary artery calcifications are identified. Lymph nodes: Unremarkable. No enlarged lymph nodes. Vasculature: The mediastinal structures including the esophagus, trachea, great vessels, and heart show no evidence of injury or acute pathologic processes. Bones/joints: Multiple old right and left--sided lateral rib fractures identified. Old kyphoplasty changes at T7, T10 and T11. Soft tissues: Doctor to ramez Lopez with the question of a CT neck sure what was the name of the Chely Schultz IMPRESSION: 1. No acute infiltrates.. 2. Multiple old right and left--sided lateral rib fractures identified.
--- NOTE | 2025-02-04 17:47 | CT_ITS ---
PROCEDURE INFORMATION: Exam: CT Thoracic Spine Without Contrast Exam date and time: 02/04/2025 6:39 PM Age: 64 years old Clinical indication: Injury or trauma; Fall; Blunt trauma (contusions or hematomas); Additional info: Fall, mid t spine pain. H/o kyphoplasty TECHNIQUE: Imaging protocol: Computed tomography of the thoracic spine without contrast. Radiation optimization: All CT scans at this facility use at least one of these dose optimization techniques: automated exposure control; mA and/or kV adjustment per patient size (includes targeted exams where dose is matched to clinical indication); or iterative reconstruction. COMPARISON: CT THORACIC SPINE WO CON 03/26/2024 7:21 AM FINDINGS: Bones/joints: No acute fracture. Old kyphoplasty changes at T7 T10 and T11. Soft tissues: Unremarkable. IMPRESSION: 1. No evidence for acute fracture. 2. Old kyphoplasty changes at T7 T10 and T11.
[2025-02-04] MEDS: IBUPROFEN 600 MG TABLET PO (17:51)
--- NOTE | 2025-02-04 17:51 | [facility].EDGENADL ---
Discharge Plan Disposition Patient Disposition: Home, Self-Care Prescriptions Prescriptions: No Action sucralfate [Carafate] 1 gram tablet 1 g PO QACHS 90 Days Qty: 360 2RF atorvastatin 10 mg tablet 10 mg PO DAILY bupropion HCl 150 mg tablet sustained-release 12 hr 150 mg PO BID diclofenac sodium 1 % gel 2 g topical QID lisinopril-hydrochlorothiazide 20-25 mg tablet 1 tab PO DAILY omeprazole 40 mg capsule,delayed release(DR/EC) 40 mg PO DAILY risperidone 2 mg tablet 2 mg PO HS albuterol sulfate [Ventolin HFA] 90 mcg/actuation HFA aerosol inhaler 2 inh inhalation Q4-6H PRN (Reason: shortness of breath or wheezing) alendronate 10 mg tablet 10 mg PO DAILY Qty: 90 3RF lidocaine 5 % adhesive patch,medicated 1 patch topical DAILY Qty: 30 3RF Rx Instructions: leave on most painful area for up to 12 hrs azithromycin 250 mg tablet See Rx Instructions PO .COMPLEX Qty: 6 0RF Rx Instructions: For 250 mg dose pack: take 500 mg today (day 1), then 250 mg for 4 days (days 2-5) PO Ozempic 2 mg/dose (8 mg/3 mL) pen injector See Rx Instructions .ROUTE .COMPLEX Qty: 3 0RF Dose Instruction: INJECT 2 MG (0.75 ML) SUBCUTANEOUSLY ONCE WEEKLY Rx Instructions: INJECT 2 MG (0.75 ML) SUBCUTANEOUSLY ONCE WEEKLY hydrocodone-acetaminophen 10-325 mg tablet 1 tab PO Q4H MDD No>4 day PRN (Reason: pain) Qty: 120 0RF Stiolto Respimat 2.5-2.5 mcg/actuation mist See Rx Instructions .ROUTE .COMPLEX Qty: 4 2RF Dose Instruction: inhale 2 puffs BY MOUTH ONCE A DAY FOR copd Rx Instructions: inhale 2 puffs BY MOUTH ONCE A DAY FOR copd carvedilol 25 mg tablet See Rx Instructions .ROUTE .COMPLEX Qty: 60 1RF Dose Instruction: TAKE 1 TABLET BY MOUTH 2 TIMES A DAY Rx Instructions: TAKE 1 TABLET BY MOUTH 2 TIMES A DAY Referrals Follow up/Referrals: Yoshi Pruitt, [Primary Care Provider, Family Practice] - See instructions Activity Restrictions/Add. Instructions Additional Instructions/Restrictions: Call your family doctor to establish care for this visit to the emergency department and schedule follow-up within 48 hours to ensure improvement. If you have any worsening of your condition or any other concerning signs or symptoms, return to the emergency department or your primary care doctor for further evaluation. Clinical Impressions Clinical Impression: Back pain, Acute chest wall pain, Fall Print Language Print Language: Pashto Discharge ED Provider: Jesus Lopez General Adult HPI <Jesus Lopez MD - Last Filed: 02/04/25 19:18> General Chief complaint: PAIN Stated complaint: AO 02/04/25 1300 Injury Middle back,left rib cage Time Seen by Provider: 02/04/25 17:20 Mode of Arrival: Ambulatory Source of Information: Patient Description of Symptoms (Recalled from ER Triage Doc. by RN): pt presents to the ED after falling 4 hours ago. pt reports that she was going to feed her cats when the cat got under her feet and she fell on the concrete. pt had a bloody nose and pain. pt hx of nose surgery. pt has pain in her left ribs and back that started after the fall. pt had surgery on T7, T10, and T11 within the last year. History of Present Illness HPI narrative: Please note that above description of symptoms, in this electronic medical record under categorization of recalled from ER triage doctor by RN are reflective of an initial nursing assessment, however, is not reflective of my full history and physical exam that was personally taken and clarified. Consequentially, this preceding description of symptoms, which may include the patient's categorized chief complaint in the EMR, do not reflect my personal clinical impression, and the ultimate description of history of present illness and patient stated complaints should be deferred to this section of the note. Unless stated otherwise or congruent with this section of the note, additional signs, symptoms, or incongruence should be interpreted as inaccurate with my clinical impression. Related Data Home Medications ?Medication ?Instructions ?Recorded ?Confirmed albuterol sulfate 90 mcg/actuation 2 inh inhalation Q4-6H PRN 01/22/25 01/22/25 aerosol inhaler (Ventolin HFA) shortness of breath or wheezing atorvastatin 10 mg tablet 10 mg PO DAILY 01/22/25 01/22/25 bupropion HCl 150 mg tablet,12 hr 150 mg PO BID 01/22/25 01/22/25 sustained-release diclofenac sodium 1 % topical gel 2 g topical QID 01/22/25 01/22/25 lisinopril 20 1 tab PO DAILY 01/22/25 01/22/25 mg-hydrochlorothiazide 25 mg tablet omeprazole 40 mg capsule,delayed 40 mg PO DAILY 01/22/25 01/22/25 release risperidone 2 mg tablet 2 mg PO HS 01/22/25 01/22/25 Previous Rx's ?Medication ?Instructions ?Recorded sucralfate 1 gram tablet (Carafate) 1 g PO QACHS 90 days #360 tabs 06/28/24 alendronate 10 mg tablet 10 mg PO DAILY #90 tabs 11/19/24 lidocaine 5 % topical patch 1 patch topical DAILY Pain #30 ea 11/19/24 azithromycin 250 mg tablet See Rx Instructions PO .COMPLEX #6 01/24/25 tabs semaglutide 2 mg/dose (8 mg/3 mL) See Rx Instructions .Route 01/30/25 subcutaneous pen injector (Ozempic) .COMPLEX #3 mL hydrocodone 10 mg-acetaminophen 1 tab PO Q4H PRN pain #120 tabs 02/18/25 325 mg tablet tiotropium 2.5 mcg-olodaterol 2.5 See Rx Instructions .Route 02/18/25 mcg/actuation mist for inhalation .COMPLEX #4 grams (Stiolto Respimat) carvedilol 25 mg tablet See Rx Instructions .Route 02/19/25 .COMPLEX #60 tabs Allergies Allergy/AdvReac Type Severity Reaction Status Date / Time Penicillins (PENICILLINS) Allergy Unknown Verified 01/22/25 09:18 phenobarbital (PHENOBARBITAL) Allergy Unknown Verified 01/22/25 09:18 Sulfa (Sulfonamide Allergy Unknown Verified 01/22/25 09:18 Antibiotics) (SULFA (SULFONAMIDE ANTIBIOTICS)) alprazolam (From Xanax) Allergy Verified 01/22/25 09:18 Barbiturates Allergy Verified 01/22/25 09:18 PENDING SALE TO [facility] <Jesus Lopez MD - Last Filed: 02/04/25 19:18> PENDING SALE TO [facility] Disclaimer: The information contained in this section may have been updated after the patient was seen, as this information can be updated by other users. Medical History Hyperkalemia Diabetes mellitus, type 2 Stopped smoking between 1 and 5 years ago Restrictive lung disease Dyspnea on exertion ILD (interstitial lung disease) Right knee injury GERD (gastroesophageal reflux disease) Anxiety Overdose Hyperlipidemia Depression Hypertension COPD (chronic obstructive pulmonary disease) Patient continues to smoke and the inhalers are helping her breathing. Strongly encouraged to quit tobacco. Vitamin D deficiency (~09/28/17) Surgical History History of arthroplasty of right knee History of arthroplasty of left knee History of colonoscopy H/O lumpectomy H/O breast biopsy H/O arthroscopy of left knee History of foot surgery Family History Other No significant family history Social History Smoking Status: Never smoker second hand exposure: No alcohol intake: never substance use type: denies use current occupational status: retired and disabled Travel in the last 8 weeks?: None housing: house current occupational exposures/hazards: No caffeine: Yes Have you lived/traveled outside [place] in past 30 days?: No Contact w/someone who lives/traveled outside [place] past 30 days?: No Exposure to someone with infectious disease in past 14 days?: No Do you have a fever (greater than 100.4 F or 38 C)?: No Have you tested positive for COVID-19?: No Exposed to someone with COVID-19 in past 14 days?: No Do you have a sore throat?: No Do you have a cough?: No Do you have any weakness?: No Do you have any diarrhea?: No Are you experiencing any unusual bleeding?: No Do you have any muscle aches/pain?: No Do you have any abdominal pain?: No Are you experiencing loss of taste or smell?: No Other Medical History Have you received the Flu Vaccine for this season: No Have you received the Pneumonia Vaccine: Yes <Jesus Lopez MD - Last Filed: 02/04/25 19:18> ROS Obtained: Yes All systems reviewed & no additional complaints except as documented Physical Exam <Jesus Lopez MD - Last Filed: 02/04/25 19:18> General General appearance: alert and in no apparent distress Head Head exam: normocephalic and other (Superficial abrasion on the bridge of the nose) Eye Eye exam: Present normal appearance, PERRL and EOMI Neck Neck exam: Present normal inspection, full ROM and trachea midline Respiratory Respiratory exam: Absent respiratory distress, wheezes, stridor, accessory muscle use or prolonged expiratory phase Cardiovascular Cardiovascular exam: Present other (Pulses equal symmetric in upper and lower extremities) Abdominal Exam Abdominal exam: Present soft; Absent distention, tenderness or pulsatile mass Extremities Exam Extremities exam: Present other (Superficial abrasions overlying the knees); Absent edema Back Exam Back exam: Present tenderness (Mid to lower T-spine) Neurological Exam Neurological exam: Present alert, oriented X3 and CN II-XII intact; Absent motor sensory deficit Skin Skin exam: Present warm and dry; Absent diaphoresis or erythema Medical Decision Making <Jesus Lopez MD - Last Filed: 02/04/25 19:18> Medical Records Medical records reviewed: Yes I reviewed the patient's medical records. Screening: Per USPSTF and CDC recommendations, given the prevalence of disease in our region, it is our hospital?s policy to screen for HIV and viral Hepatitis for all patients aged 18 and over and those with ongoing risk factors. Joel Inquiry Pt receiving controlled substance: No Joel was queried for this patient: No Vital Signs: 02/04/25 17:18 02/04/25 17:25 02/04/25 17:45 Temperature 98.5 F 98.5 F Temperature Source Oral Oral Pulse Rate 102 H 99 H Pulse Rate [Right] 102 H Respiratory Rate 16 16 18 Blood Pressure 177/79 H 153/67 H Blood Pressure [Right Arm] 177/79 H Blood Pressure Mean [Right Arm] 111 Blood Pressure Source Automatic Cuff Automatic Cuff Blood Pressure Source [Right Arm] Automatic Cuff Blood Pressure Position Supine Supine Blood Pressure Position [Right Arm] Supine 02 Sat by Pulse Oximetry 94 L 94 L 97 Oxygen Delivery Method Room Air Room Air Room Air 02/04/25 18:15 02/04/25 18:45 02/04/25 19:04 Temperature 97.6 F Temperature Source Oral Pulse Rate 99 H 94 H 86 Pulse Rate [Right] Respiratory Rate 17 17 17 Blood Pressure 163/72 H 180/85 H 165/79 H Blood Pressure [Right Arm] Blood Pressure Mean [Right Arm] Blood Pressure Source Automatic Cuff Automatic Cuff Automatic Cuff Blood Pressure Source [Right Arm] Blood Pressure Position Supine Supine Supine Blood Pressure Position [Right Arm] 02 Sat by Pulse Oximetry 97 97 Oxygen Delivery Method Room Air Room Air Room Air Orders (Tests/Meds): ED MEDICATIONS Discontinued Medications Generic Name Dose Route Start Last Admin Trade Name Hillary PRN Reason Stop Dose Admin Dexamethasone Sodium Phosphate 10 mg 02/04/25 18:56 02/04/25 19:05 Dexamethasone 4mg/Ml 1ml Vial IM 02/04/25 18:57 10 mg ONCE ONE Administration Ibuprofen 600 mg 02/04/25 17:45 02/04/25 17:51 Ibuprofen 600 Mg Tablet PO 02/04/25 17:46 600 mg ONCE ONE Administration ORDERS Category Date Time Status CT cervical spine wo con Stat Cat Scan 02/04/25 17:[address] chest wo con Stat Cat Scan 02/04/25 17:[address] head/brain wo con Stat Cat Scan 02/04/25 17:[address] thoracic spine wo con Stat Cat Scan 02/04/25 17:47 Completed Medical Decision Narrative: 64-year-old female with history of chronic neck and back pain, thoracic kyphoplasty presenting with fall. She states that she tripped over her cat just prior to arrival. Was walking, tripped, landed mostly on her knees followed by her back and then also hit her nose. Did not lose conscious. Not on anticoagulation. States that she was able to stand up, able to walk without issue, no pain in her legs or knees at this point. Came in mostly because she is having posterior lateral chest wall/back pain as well as midline thoracic back pain. No bowel or bladder dysfunction, lower extremity weakness, numbness or any other neurologic deficits from her baseline. History was obtained via conversation with patient. On arrival, patient hemodynamically stable, alert, oriented x4, appropriate, GCS 15, moving all extremities spontaneously, pupils equal and reactive to light. Full physical exam performed and significant for well-appearing female who is chronically ill, but in no acute distress. Superficial abrasion overlying the bridge of the nose. No cervical spinal tenderness. Full range of motion of the cervical spine. She has tenderness over the mid to lower T-spine no outward signs of abnormality, step-offs, deformities, bruising, etc. Bilateral breath sounds anterior and posterior bilaterally. Speaking full sentences. In no acute distress. Differential includes minor MSK trauma, rib fractures, pneumothorax, thoracic spine fracture, intracranial hemorrhage, cervical spine injury, among others. Patient placed on continuous cardiac monitoring and continuous pulse ox with initial blood pressure 177/79, heart rate 102, saturation 94% on room air. [Patient was given ibuprofen for symptomatic management and correction of underlying abnormalities. Workup independently interpreted and significant for no acute intracranial hemorrhage. No acute abnormality of the cervical or thoracic spine. No acute rib fracture. No underlying pneumothorax. She does have old rib fractures, but nothing acute. Given patient presentation, workup, history, this most likely represents states she still in pain, likely MSK. She was given 10 of IM Decadron and oral oxycodone. Because patient at baseline without signs or symptoms of clinical decompensation, deemed appropriate for discharge. Results were relayed to patient who voiced understanding and were agreeable to outpatient management and follow up. I discussed my clinical impression with patient and answered all questions. At this time, the evidence for any other entities in the differential is insufficient to warrant any further testing or ED observation. This was explained as well. Advisory was given that persistent or worsening symptoms require further evaluation. I confirmed the understanding of this discussion. Information Assistant disclaimer Much of this encounter note is an electronic accounting machine servicer spoken language to printed text. Electronic accounting machine servicer of the spoken language may permit errors. Although I have reviewed the note, some errors may still exist. <Edmar Lamas MD - Last Filed: 02/20/25 13:50> Vital Signs: 02/04/25 17:18 02/04/25 17:25 02/04/25 17:45 Temperature 98.5 F 98.5 F Temperature Source Oral Oral Pulse Rate 102 H 99 H Pulse Rate [Right] 102 H Respiratory Rate 16 16 18 Blood Pressure 177/79 H 153/67 H Blood Pressure [Right Arm] 177/79 H Blood Pressure Mean [Right Arm] 111 Blood Pressure Source Automatic Cuff Automatic Cuff Blood Pressure Source [Right Arm] Automatic Cuff Blood Pressure Position Supine Supine Blood Pressure Position [Right Arm] Supine 02 Sat by Pulse Oximetry 94 L 94 L 97 Oxygen Delivery Method Room Air Room Air Room Air 02/04/25 18:15 02/04/25 18:45 02/04/25 19:04 Temperature 97.6 F Temperature Source Oral Pulse Rate 99 H 94 H 86 Pulse Rate [Right] Respiratory Rate 17 17 17 Blood Pressure 163/72 H 180/85 H 165/79 H Blood Pressure [Right Arm] Blood Pressure Mean [Right Arm] Blood Pressure Source Automatic Cuff Automatic Cuff Automatic Cuff Blood Pressure Source [Right Arm] Blood Pressure Position Supine Supine Supine Blood Pressure Position [Right Arm] 02 Sat by Pulse Oximetry 97 97 Oxygen Delivery Method Room Air Room Air Room Air Orders (Tests/Meds): ED MEDICATIONS Discontinued Medications Generic Name Dose Route Start Last Admin Trade Name Hillary PRN Reason Stop Dose Admin Dexamethasone Sodium Phosphate 10 mg 02/04/25 18:56 02/04/25 19:05 Dexamethasone 4mg/Ml 1ml Vial IM 02/04/25 18:57 10 mg ONCE ONE Administration Ibuprofen 600 mg 02/04/25 17:45 02/04/25 17:51 Ibuprofen 600 Mg Tablet PO 02/04/25 17:46 600 mg ONCE ONE Administration ORDERS Category Date Time Status CT cervical spine wo con Stat Cat Scan 02/04/25 17:[address] chest wo con Stat Cat Scan 02/04/25 17:[address] head/brain wo con Stat Cat Scan 02/04/25 17:[address] thoracic spine wo con Stat Cat Scan 02/04/25 17:47 Completed Medical Decision Narrative: 64-year-old female with history of chronic neck and back pain, thoracic kyphoplasty presenting with fall. She states that she tripped over her cat just prior to arrival. Was walking, tripped, landed mostly on her knees followed by her back and then also hit her nose. Did not lose conscious. Not on anticoagulation. States that she was able to stand up, able to walk without issue, no pain in her legs or knees at this point. Came in mostly because she is having posterior lateral chest wall/back pain as well as midline thoracic back pain. No bowel or bladder dysfunction, lower extremity weakness, numbness or any other neurologic deficits from her baseline. History was obtained via conversation with patient. On arrival, patient hemodynamically stable, alert, oriented x4, appropriate, GCS 15, moving all extremities spontaneously, pupils equal and reactive to light. Full physical exam performed and significant for well-appearing female who is chronically ill, but in no acute distress. Superficial abrasion overlying the bridge of the nose. No cervical spinal tenderness. Full range of motion of the cervical spine. She has tenderness over the mid to lower T-spine no outward signs of abnormality, step-offs, deformities, bruising, etc. Bilateral breath sounds anterior and posterior bilaterally. Speaking full sentences. In no acute distress. Differential includes minor MSK trauma, rib fractures, pneumothorax, thoracic spine fracture, intracranial hemorrhage, cervical spine injury, among others. Patient placed on continuous cardiac monitoring and continuous pulse ox with initial blood pressure 177/79, heart rate 102, saturation 94% on room air. [Patient was given ibuprofen for symptomatic management and correction of underlying abnormalities. Workup independently interpreted and significant for no acute intracranial hemorrhage. No acute abnormality of the cervical or thoracic spine. No acute rib fracture. No underlying pneumothorax. She does have old rib fractures, but nothing acute. Given patient presentation, workup, history, this most likely represents states she still in pain, likely MSK. She was given 10 of IM Decadron and oral oxycodone. Because patient at baseline without signs or symptoms of clinical decompensation, deemed appropriate for discharge. Results were relayed to patient who voiced understanding and were agreeable to outpatient management and follow up. I discussed my clinical impression with patient and answered all questions. At this time, the evidence for any other entities in the differential is insufficient to warrant any further testing or ED observation. This was explained as well. Advisory was given that persistent or worsening symptoms require further evaluation. I confirmed the understanding of this discussion. Information Assistant disclaimer Much of this encounter note is an electronic accounting machine servicer spoken language to printed text. Electronic accounting machine servicer of the spoken language may permit errors. Although I have reviewed the note, some errors may still exist. Edmar Lamas: Dr. Mtz is responsible for this patient encounter including triage, workup, evaluation and disposition in its totality. I was not involved with this patient's care. I am signing this chart administratively as medical and scientific illustrator of the emergency department due to loss of EMR access prior to completion of signature. I discussed this with Dr. Lopez as his chart is complete with the exception of signature and he is agreeable to me signing it administratively at this time. This encounter should be billed under Dr. Mtz. Critical Care <Jesus Lopez MD - Last Filed: 02/04/25 19:18> Critical Care Time Critical Care Time: No
[2025-02-04 18:15] VITALS: BP 163/72; PULSE 99; RESP 17; O2SAT 97
[2025-02-04 18:45] VITALS: BP 180/85; PULSE 94; RESP 17; O2SAT 97
[2025-02-04 19:04] VITALS: BP 165/79; PULSE 86; RESP 17; TEMP 36.4; O2SAT 97
[2025-02-04] MEDS: DEXAMETHASONE 4MG/ML 1ML VIAL 10 MG IM (19:05)
== END 2025-02-04 19:39 | disposition home or self-care (01) ==
PROVIDERS: Emergency Provider Emergency Medicine; PCP Internal Medicine
DX: R07.89 Other chest pain (principal); R04.0 Epistaxis; W01.10XA Fall on same level from slipping, tripping and stumbling with subsequent striking against unspecified object, initial encounter
CPT/HCPCS: 70450; 71250; 72125; 72128; 96372; 99285; J1100

== ENCOUNTER 2025-05-08 11:21 | Outpatient (CLI) | payer MEDICARE, OTHER, SELFPAY ==
--- OUTSIDE RECORDS SUMMARY | 2025-05-08 12:26 | XMS_ITS | Clinical Summary ---
Author Organization [facility] Address [address] [place] [address] Care Team Providers Care Air Defence Officer Name Role Phone Doroteo Elliott DO Primary Care Provider [phone] Allergies Active Allergy Reactions Criticality Noted Date Comments Barbiturates Anaphylaxis High 04/18/2024 Benzodiazepines Mental Status Change Medium 04/18/2024 Penicillin G Itching Low 04/18/2024 Sulfa Antibiotics Itching Low 04/18/2024 Medications atorvastatin (LIPITOR) 10 MG tablet Take 1 tablet by mouth Every Night. 4 Active escitalopram (LEXAPRO) 10 MG tablet Take 1 tablet by mouth Daily. Active carvedilol (COREG) 12.5 MG tablet Take 1 tablet by mouth 2 (Two) Times a Day With Meals. 4 Active buPROPion SR (WELLBUTRIN SR) 150 MG 12 hr tablet Take 1 tablet by mouth 2 (Two) Times a Day. 4 Active risperiDONE (risperDAL) 2 MG tablet Take 1 tablet by mouth Daily. 4 Active omeprazole (priLOSEC) 40 MG capsule Take 1 capsule by mouth Daily. 4 Active lisinopril-hydr ochlorothiazide (PRINZIDE,ZESTO RETIC) 20-25 MG per tablet Take 1 tablet by mouth Every Morning. 4 Active albuterol sulfate HFA 108 (90 Base) MCG/ACT inhaler Inhale 1 puff Every 4 (Four) Hours As Needed. 4 Active Stiolto Respimat 2.5-2.5 MCG/ACT aerosol solution inhaler 4 Active Ozempic, 1 MG/DOSE, 4 MG/3ML solution pen-injector Inject under the skin into the appropriate area as directed 1 (One) Time Per Week. 4 Active promethazine (PHENERGAN) 12.5 MG tablet Take 1 tablet by mouth Every 6 (Six) Hours As Needed for Nausea or Vomiting. Active Diclofenac Sodium (VOLTAREN) 1 % gel gel Apply 4 g topically to the appropriate area as directed As Needed. Active Lido-Capsaicin- Men-Methyl Everette (Tkjv-Kuerc-Kzy ocaine) 0.5-0.035-5-20 % patch Apply 1 patch topically Daily. Active HYDROcodone-ozzy taminophen (NORCO) 10-325 MG per tablet Take 1 tablet by mouth Every 4 (Four) Hours As Needed for Moderate Pain. Active lisinopril (PRINIVIL,ZESTR IL) 10 MG tablet Take 1 tablet by mouth Every Night. Active HYDROcodone-ozzy taminophen ([place]) 10-325 MG per tablet Take 1 tablet by mouth Every 6 (Six) Hours As Needed for Moderate Pain. 28 tablet 4 Active naloxone (NARCAN) 4 MG/0.1ML nasal spray Call 911. Don't prime. [place] in 1 nostril for overdose. Repeat in 2-3 minutes in other nostril if no or minimal breathing/respon siveness. 2 each 4 Active Social History Tobacco Use Types Packs/Day Years Used Date Smoking Tobacco: Former Cigarettes Passive Smoke Exposure: Never Smokeless Tobacco: Never Tobacco Cessation:Counseling Given: Not Answered Comments:Quit 30 yrs+ ago Alcohol Use Standard Drinks/Week Comments Never 0 (1 standard drink = 0.6 oz pur e alcohol) Abuse Screen Answer Date Recorded Feels Unsafe at Home or Work/School no 05/11/2024 Feels Threatened by Someone no 11/2023 Does Anyone Try to Keep You From Having Contact with Others or Doing Things Outside Your Home? no 05/11/2024 Physical Signs of Abuse Present no 05/11/2024 Housing Stability Answer Date Recorded Current Living Arrangements home 11/2023 Potentially Unsafe Housing Conditions Not on onesimo e 05/11/2024 Family and Community Support Answer Silvano e Recorded Help with Day-to-Day Activities Not on file 05/16/2023 Lonely or Isolated Not on file 05/16/2023 Employment Answer Date Recorded Do you want help finding or keeping work or a judd b? Not on file 05/16/2023 Disabilities Answer Date Recorded Difficulty Concentrating, Remembering or Making Decisions yes 05/11/2024 Difficulty Managing Errands Independently no 05/11/2024 Education Answer Date Recorded Help with school or training? Not on file Preferred Language Macedonian 05/10/2024 Comments No Sex and Gender Information Value Date Recorded Sex Assigned at Not on file Legal Sex Female 8:18 PM EDT Gender Identity Not on file Sexual Orientation Not on file Last Filed Vital Signs Vital Sign Reading Time Taken Comments Blood Pressure 117/75 05/11/2024 1:15 PM EDT Pulse 68 05/11/2024 2:00 PM EDT Temperature 36.8 C (98.3 F) 05/11/2024 2:00 PM EDT Respiratory Rate 16 05/11/2024 2:00 PM EDT Oxygen Saturation 84% 05/11/2024 2:00 PM EDT Inhaled Oxygen Concentration - - Weight 88.9 kg (196 lb) 05/11/2024 8:42 AM EDT Height 165.1 cm (5' 5 ) 05/11/2024 8:42 AM EDT Body Mass Index 32.62 05/11/2024 8:42 AM EDT Plan of Treatment Health Maintenance Due Date Last Done Comments DXA SCAN 1959 TDAP/TD VACCINES (1 - Tdap) 11/29/1978 MAMMOGRAM 1999 COLOGUARD 11/29/2004 COLON CANCER SCREENING 5 YEA R SIGMOIDOSCOPY 11/29/2004 COLONOSCOPY 11/29/2004 COLORECTAL CANCER SCREENING 11/29/2004 CT COLONOGRAPHY 11/29/2004 FECAL OCCULT BLOOD TEST 11/29/2004 FIT Testing (1 year) 11/29/2004 ZOSTER VACCINE (1 of 2) 11/29/2009 ANNUAL PHYSICAL 04/17/2024 HEPATITIS C SCREENING 04/17/2024 INFLUENZA VACCINE 03/08/2025 06/14/2023, , 07/17/2021, Additional history exists COVID-19 Vaccine (5 - 2024-2 6 season) 2025 09/08/2023, 07/21/2022, 06/24/2021, Additional history exists Pneumococcal Vaccine 50+ Completed 06/14/2023, 08/08 Medical Devices Implanted Type Area Blanket Maker Device Identifier Shelf Expiration Date Model / Serial / Lot Cmt Bone Confidence/P ls Ds Kt 11cc - [id number] Implanted:Qt y: 1 on 04/18/2024 by Doroteo Carter MD at [facility] Implant N/A: Spine Lumbar DEPUY SPINE 01/05/2026 [id number] / / [id number] Cmt Bone Confidence/P ls Ds Kt 11cc - [id number] Implanted:Qt y: 1 on 05/11/2024 by Doroteo Carter MD at [facility] Implant N/A: Spine Thoracic DEPUY SPINE [id number] 11/05/2025 [id number] / / [id number] Cmt Bone Confidence/P ls Ds Kt 11cc - [id number] Implanted:Qt y: 1 on 05/11/2024 by Doroteo Carter MD at [facility] Implant N/A: Spine Thoracic DEPUY SPINE [id number] 01/05/2026 [id number] / / [id number] Advance Directives Documents on File Type Date Recorded Patient Model Maker Scale Expl anation LIVING WILL - SCAN 04/17/2024 8:17 AM anjelica ng will 2023 Care Teams Air Defence Officer Relationship Specialty Start Date End Date Doroteo Elliott DO [address] [place] [address] PCP - General Internal Medicine 04/17/24
== END 2025-05-08 23:59 | disposition home or self-care (01) ==
LOC: LAB 11:22
PROVIDERS: PCP Internal Medicine; Visit Provider Physician Assistant
DX: I10 Essential (primary) hypertension (principal); E11.9 Type 2 diabetes mellitus without complications; Z90.3 Acquired absence of stomach [part of]; Z91.89 Other specified personal risk factors, not elsewhere classified

== ENCOUNTER 2025-05-13 08:05 | Outpatient (CLI) | payer MEDICARE, OTHER, SELFPAY ==
--- OUTSIDE RECORDS SUMMARY | 2025-05-13 08:12 | XMS_ITS | Clinical Summary ---
Author Organization [facility] Address [address] [place] [address] Care Team Providers Care Junior Electrical Engineer Name Role Phone Doroteo Elliott DO Primary Care Provider [phone] Allergies Active Allergy Reactions Criticality Noted Date [...] directed As Needed. Active Lido-Capsaicin- Men-Methyl Everette (Sfpr-Zkwsz-Dww ocaine) 0.5-0.035-5-20 % patch Apply 1 patch topically Daily. Active HYDROcodone-ozzy taminophen (NORCO) 10-325 MG per tablet Take 1 tablet by mouth Every 4 (Four) Hours As Needed for Moderate Pain. Active lisinopril (PRINIVIL,ZESTR IL) 10 MG tablet Take 1 tablet by mouth Every Night. Active HYDROcodone-ozzy taminophen ([place]) 10-325 MG per tablet Take 1 tablet by mouth Every 6 (Six) Hours As Needed for Moderate Pain. 28 tablet 4 Active naloxone (NARCAN) 4 MG/0.1ML nasal spray Call 911. Don't prime. [place] in 1 nostril for overdose. Repeat in [...] or training? Not on file Preferred Language Venezuelan 05/10/2024 Comments No Sex and Gender Information [...] 06/14/2023, 08/08 Medical Devices Implanted Type Area Discharge Specialist Device Identifier Shelf Expiration Date Model / Serial / Lot Cmt Bone Confidence/P ls Ds Kt 11cc - [id number] Implanted:Qt y: 1 on 04/18/2024 by Doroteo Carter MD at [facility] Implant N/A: Spine Lumbar DEPUY SPINE 01/05/2026 [id number] / / [id number] Cmt Bone Confidence/P ls Ds Kt 11cc - [id number] Implanted:Qt y: 1 on 05/11/2024 by Doroteo Carter MD at [facility] Implant N/A: Spine Thoracic DEPUY SPINE [id number] 11/05/2025 [id number] / / [id number] Cmt Bone Confidence/P ls Ds Kt 11cc - [id number] Implanted:Qt y: 1 on 05/11/2024 by Doroteo Carter MD at [facility] Implant N/A: Spine Thoracic DEPUY SPINE [id number] 01/05/2026 [id number] / / [id number] Advance Directives Documents on File Type Date Recorded Patient Water Carter Expl anation LIVING WILL - SCAN 04/17/2024 8:17 AM anjelica ng will 2023 Care Teams Junior Electrical Engineer Relationship Specialty Start Date End Date Doroteo Elliott DO [address] [place] [address] PCP - General Internal Medicine 04/17/24
[2025-05-13 08:25] LABS: Hematocrit 34.0 % (37.0-47.0); Hemoglobin 11.2 g/dL (12.2-16.2); Immature Granulocytes % 0.5 %; Mean Corpuscular HGB Conc 32.9 g/dL (31.8-35.4); Mean Corpuscular Hemoglobin 31.6 pg (27.0-31.2); Mean Corpuscular Volume 96.0 fl (81-99); Nucleated Red Blood Cells % 0 %; Platelet Count 226 K/mm3 (142-424); Red Blood Count 3.54 M/mm3 (4.20-5.40); Red Cell Distribution Width-SD 42.7 fL; White Blood Count 8.3 K/mm3 (4.8-10.8)
[2025-05-13 11:47] LABS: Alanine Aminotransferase 63 U/L (12-78); Albumin Level 4.3 g/dl (3.5-5.0); Albumin/Globulin Ratio 1.6 (1.1-1.8); Alkaline Phosphatase 90 U/L (38-126); Anion Gap 16.4 mEq/L (5-15); Aspartate Amino Transferase 49 U/L (14-36); Bilirubin,Total 1.0 mg/dl (0.2-1.3); Blood Urea Nitrogen 17 mg/dl (7-17); Calcium 9.7 mg/dl (8.4-10.2); Carbon Dioxide 26 mmol/L (22.0-30.0); Chloride 91 mmol/L (98-107); Cholesterol 195 mg/dl (140-200); Creatinine,Serum 0.70 mg/dl (0.52-1.04); Estimated Glomerular Filt Rate 84 ml/min (>60); GFR (African American) 102 ML/MIN (>60); Globulin 2.7 g/dL (1.3-3.2); Glucose 74 mg/dl (74-100); Potassium 4.4 mmoL/L (3.5-5.1); Sodium 129 mmol/L (136-145); Total Protein,Serum 7.0 g/dl (6.3-8.2); Triglycerides 80 mg/dl (30-150)
[2025-05-13 12:00] LABS: HDL Cholesterol 108 mg/dl (40-60)
[2025-05-13 12:02] LABS: 25-OH Vitamin D, Total 58.8 ng/mL (30-100)
[2025-05-13 12:22] LABS: Thyroid Stimulating Hormone 1.51 uIU/mL (0.465-4.68)
[2025-05-13 12:53] LABS: Folate > 20.00 ng/mL
[2025-05-13 15:41] LABS: Iron 166 ug/dL (37-170)
[2025-05-13 15:54] LABS: Total Iron Binding Capacity 379 ug/dL (265-497)
[2025-05-13 16:20] LABS: Ferritin 71.0 ng/ml (11.1-264)
[2025-05-13 16:29] LABS: Free T4 (Free Thyroxine) 1.28 ng/dl (0.78-2.19)
[2025-05-13 22:49] LABS: Hemoglobin A1C 4.7 % (4.0-6.0)
[2025-05-15 03:55] LABS: Prealbumin 48 mg/dL (10-36)
== END 2025-05-13 23:59 | disposition home or self-care (01) ==
LOC: LAB 08:05
PROVIDERS: PCP Internal Medicine; Visit Provider Physician Assistant
DX: E11.9 Type 2 diabetes mellitus without complications (principal); I10 Essential (primary) hypertension; Z90.3 Acquired absence of stomach [part of]; Z91.89 Other specified personal risk factors, not elsewhere classified
CPT/HCPCS: 36415; 80053; 80061; 82306; 82728; 82746; 83036; 83540; 83550; 83921; 84134; 84425; 84439; 84443; 84446; 84590; 85025

== ENCOUNTER 2025-05-20 07:54 | Outpatient (CLI) | payer MEDICARE, OTHER, SELFPAY ==
--- OUTSIDE RECORDS SUMMARY | 2025-05-20 07:56 | XMS_ITS | Clinical Summary ---
Author Organization [facility] Address [address] [place] [address] Care Team Providers Care Diagnostic Cardiac Sonographer Name Role Phone Doroteo Elliott DO Primary Care Provider [phone] Allergies Active Allergy Reactions Criticality Noted Date [...] directed As Needed. Active Lido-Capsaicin- Men-Methyl Everette (Lepy-Fcjpo-Xzc ocaine) 0.5-0.035-5-20 % patch Apply 1 patch topically Daily. Active HYDROcodone-ozzy taminophen (NORCO) 10-325 MG per tablet Take 1 tablet by mouth Every 4 (Four) Hours As Needed for Moderate Pain. Active lisinopril (PRINIVIL,ZESTR IL) 10 MG tablet Take 1 tablet by mouth Every Night. Active HYDROcodone-ozzy taminophen ([place]) 10-325 MG per tablet Take 1 tablet by mouth Every 6 (Six) Hours As Needed for Moderate Pain. 28 tablet 4 Active naloxone (NARCAN) 4 MG/0.1ML nasal spray Call 911. Don't prime. [place] in 1 nostril for overdose. Repeat in [...] or training? Not on file Preferred Language Tristanian 05/10/2024 Comments No Sex and Gender Information [...] 06/14/2023, 08/08 Medical Devices Implanted Type Area Spanner Operator Device Identifier Shelf Expiration Date Model / Serial / Lot Cmt Bone Confidence/P ls Ds Kt 11cc - [id number] Implanted:Qt y: 1 on 04/18/2024 by Doroteo Carter MD at [facility] Implant N/A: Spine Lumbar DEPUY SPINE 01/05/2026 [id number] / / [id number] Cmt Bone Confidence/P ls Ds Kt 11cc - [id number] Implanted:Qt y: 1 on 05/11/2024 by Doroteo Carter MD at [facility] Implant N/A: Spine Thoracic DEPUY SPINE [id number] 11/05/2025 [id number] / / [id number] Cmt Bone Confidence/P ls Ds Kt 11cc - [id number] Implanted:Qt y: 1 on 05/11/2024 by Doroteo Carter MD at [facility] Implant N/A: Spine Thoracic DEPUY SPINE [id number] 01/05/2026 [id number] / / [id number] Advance Directives Documents on File Type Date Recorded Patient Interior Design Professional Expl anation LIVING WILL - SCAN 04/17/2024 8:17 AM anjelica ng will 2023 Care Teams Diagnostic Cardiac Sonographer Relationship Specialty Start Date End Date Doroteo Elliott DO [address] [place] [address] PCP - General Internal Medicine 04/17/24
--- OUTSIDE RECORDS SUMMARY | 2025-05-20 07:56 | XMS_ITS | Data Portability ---
Author Organization [place] - [facility] & [place] Address [address] [place] [address] Care Team Providers Care Metal Coater Operator Name Role Phone HANG PEREZ Primary Care Provider [phone] Assessment No assessment recorded. Plan of Treatment Reminders Order Date Submit Date Provider Last Modified By Organization Details Last Modified Time Details Appointments None recorded. Lab HbA1c (hemoglobin A1c), blood 2024 025 SEVERIANO Clemens, [address], [address], [place], [address], 5 05:51:35 lipid panel, serum 2024 025 SEVERIANO [facility], [address], [address], [place], [address], 5 19:58:02 folate, serum 2024 025 SEVERIANO [facility], [address], [address], [place], [address], 5 04:14:08 prealbumin, serum 2024 025 SEVERIANO [facility], [address], [address], [place], [address], 5 04:14:08 thiamine, QN, blood 2024 025 SEVERIANO [facility], [address], [address], [place], [address], 5 04:14:08 methylmalon ate, QN, serum or plasma 2024 025 SEVERIANO [facility], [address], [address], [place], [address], 5 04:14:09 CBC w/ auto diff 2024 025 SEVERIANO [facility], [address], [address], [place], [address], 5 09:35:28 CMP, serum or plasma 2024 025 SEVERIANO [facility], [address], [address], [place], [address], 5 19:58:02 iron + TIBC + ferritin, serum 2024 025 SEVERIANO [facility], [address], [address], [place], [address], 5 04:14:09 vitamin D, 25-hydroxy, total, serum 2024 025 SEVERIANO [facility], [address], [address], [place], [address], 5 13:40:16 vitamin E, serum 2024 025 SEVERIANO [facility], [address], [address], [place], [address], 5 04:14:10 vitamin A (retinol), serum 2024 025 SEVERIANO [facility], [address], [address], [place], [address], 5 04:14:10 TSH + free T4, serum 2024 025 SEVERIANO [facility], [address], [address], [place], [address], 5 04:14:10 Referral None recorded. Procedures None recorded. Surgeries esophagogas troduodenos copy (SURG) 2024 025 [email or web address] Tania Gudino MD, [address], [address], [place], [address], 5 10:01:05 Imaging RF, upper gastrointes tinal tract, w/ contrast PO 2024 025 [id number] [facility] (Centralized Scheduling), [address], [place], [address], 5 14:23:19 Medication Orders None recorded. Patient Targets Encounter Date Encounter Id Patient Goals Patient Target Last Modified By Organization Details Last Modified Time 04/25/[id number] 1. Start keeping food records 2. Eat 3-6 times a day 3. Review manual for meal and snack ideas, review vitamin recommendations in procedure manual 4. Wean off Pepsi zero 5. 64 oz of fluids with no calories, caffeine, or carbonation 6. Physical activity 3 times a week - try chair exercises as tolerated [email or web address] Not available 04/25/2025 13:12:58 Patient InstructionsNo instructions recorded. Reason for Referral None Reported. Problems Name Problem SNOMED Code Status Onset Date Resolution Date Notes Provider Name and Address Organization Details Recorded Time Gastroesophag eal reflux disease 990958397 Active 2024 MANJIT Haywood [address], [place], [address] , [place] - [facility] & [place] 5 10:31:04 Type 2 diabetes mellitus 17685009 Active 2024 MANJIT Haywood [address], [place], [address] , [place] - [facility] - [place] & [place] 5 10:31:32 Essential hypertension 22252135 Active 2024 MANJIT Haywood [address], [place], [address] , [facility] - [facility] & [place] 10:31:45 Intentional weight loss 283935659 Active [address], [place], [address] , [facility] - [facility] & [place] 10:31:57 Obesity 143437103 Active [address], [place], [address] , [facility] - [facility] & [place] 10:36:57 Problem Notes None recorded. Procedures Surgical History Date Name Laterality Status Provider Name and Address Organization Details Recorded Time laparoscopic sleeve gastrectomy completed [address], [place], [address], [facility] - [facility] & [place] 04/25/2025 08:54:[address], [place], [address], [facility] - [facility] & [place] 04/25/2025 08:54:43 arthroscopy of knee completed [address], [place], [address], [facility] - [facility] & [place] 04/25/2025 08:55:00 facial reconstruction completed [address], [place], [address], [place] - [facility] & [place] 04/25/2025 08:56:[address]oscopy [address], [place], [address], [facility] - [facility] & [place] 04/25/2025 08:56:47 extraction of wisdom tooth completed [address], [place], [address], [place] - [facility] & [place] 04/25/2025 08:56:57 Back Surgery completed Trev MATSON [facility] & [place] 04/25/2025 09:53:51 arthrodesis of foot completed Trev MATSON [facility] & [place] 04/25/2025 10:00:36 Imaging Results None recorded. Procedure Notes None recorded. Medical Equipment None Reported. Allergies Allergen ID Allergen Name Allergen Category Reaction Reaction Severity Criticality Documentation Date Start Date Code Code System Note Provider Name and Address Organization Details Recorded Time 713975 Product containin g penicilli n (product) medicatio n Not available Not available Not available 04/25/2025 75915 8001 SNOMED TRACY Shay [facility] & [place] 5 09:54:06 243667 Substance with sulfonami de structure and antibacte rial mechanism of action (substanc e) medicatio n Not available Not available Not available 04/25/2025 86541 8003 SNOMED TRACY Shay [facility] & [place] 5 09:54:15 Medications Name Sig Start Date Stop Date Status Note LastModified by Organization Details LastModified Time alendronate 10 mg tablet TAKE 1 TABLET BY MOUTH ONCE A DAY 2024 active Not Available Not Available Not Avai lable bupropion HCl SR 150 mg tablet,12 hr sustained-r elease TAKE ONE TABLET BY MOUTH TWICE DAILY active Not Available Not Available No t Available carvedilol 25 mg tablet TAKE 1 TABLET BY MOUTH 2 TIMES A DAY active Not Available Not Available No t Available atorvastati n 10 mg tablet TAKE ONE TABLET BY MOUTH ONCE A DAY active Not Available Not Available No t Available azithromyci n 250 mg tablet TAKE 2 TABLETS BY MOUTH FIRST DAY, THEN TAKE 1 TABLET BY MOUTH ONCE A DAY FOR 4 DAYS 2024 active Not Available Not Available Not Avai lable sucralfate 1 gram tablet TAKE ONE TABLET BY MOUTH BEFORE MEALS AND AT BEDTIME active Not Available Not Available No t Available hydrocodone 10 mg-acetamin ophen 325 mg tablet TAKE 1 TABLET BY MOUTH EVERY 4 HOURS NEEDED FOR pain max DOSE of 4 PER DAY active Not Available Not Available No t Available omeprazole 40 mg capsule,del ayed release TAKE ONE CAPSULE BY MOUTH EVERY DAY active Not Available Not Available No t Available risperidone 2 mg tablet TAKE ONE TABLET BY MOUTH EVERY DAY AT BEDTIME active Not Available Not Available No t Available lidocaine 5 % topical patch APPLY 1 PATCH TOPICALLY TO MOST PAINFUL AREA AND LEAVE ON FOR 12 HOURS THEN REMOVE AND LEAVE OFF FOR 12 HOURS active Not Available Not Available No t Available lisinopril 20 mg-hydrochl orothiazide 25 mg tablet TAKE ONE TABLET BY MOUTH EVERY MORNING active Not Available Not Available No t Available albuterol sulfate HFA 90 mcg/actuati on aerosol inhaler inhale 2 puffs BY MOUTH EVERY 6 HOURS NEEDED FOR SHORTNESS OF BREATH OR wheezing active Not Available Not Available No t Available bupropion HCl SR 200 mg tablet,12 hr sustained-r elease TAKE 1 TABLET BY MOUTH 2 TIMES A DAY 04/25 completed Not Available Not Available Not Available Stiolto Respimat 2.5 mcg-2.5 mcg/actuati on solution for inhalation inhale 2 puffs BY MOUTH ONCE A DAY FOR copd active Not Available Not Available No t Available Ozempic 1 mg/dose (4 mg/3 mL) subcutaneou s pen injector INJECT 1 MG SUBCUTANE OUSLY ONCE WEEKLY 04/25 completed Not Available Not Available Not Available Ozempic 2 mg/dose (8 mg/3 mL) subcutaneou s pen injector INJECT 2 MG (0.75 ML) SUBCUTANE OUSLY ONCE WEEKLY active Not Available Not Available No t Available Vitals Date Recorded Body height Body mass index (BMI) Body weight Heart rate Body temperature Systolic And Diastolic Provider Name and Address Organization Details Last Updated DateTime 5 165.1 cm 32.4 kg/m2 38614.7 2 g 72 /min 98 [degF] 133/85 mm[Hg] Trev MOLINA [facility] & [place] 09:59:12 Social History Question Answer Notes LastModified by Organizat ion Details LastModified Time Tobacco Smoking Status Former Smoker Trev barrientos, TRACY - [facility] & [place] 04/25/2025 09:53:25 Do You Have An Advance Directive? Yes Information not available 04/25/2025 Are You Blind Or Do You Have Difficulty Seeing? No Information not available 04/25/2025 What Was The Date Of Your Most Recent Tobacco Screening? 04/18/2025 Information not available 04/25/2025 Are You Passively Exposed To Smoke? No Information not available 04/25/2025 How Much Tobacco Do You Smoke? 1 PPD Information not available 04/25/2025 How Many Years Have You Smoked Tobacco? 4 Information not available 04/25/2025 Sex: Female Functional Status Question Answer Note LastModified by Organizat ion Details LastModified Time Do you use any illicit or recreational drugs? No Information not available 04/25/2025 What is your level of alcohol consumption? Occasional Information not available 04/25/2025 Do you or have you ever used smokeless tobacco? Never used smokeless tobacco Information not available 04/25/2025 What is your exercise level? None Information not available 04/25/2025 Mental Status Question Answer Note LastModified by Organization D etails LastModified Time Do you feel stressed (tense, restless, nervous, or anxious, or unable to sleep at night)? [id number] Information not available 04/25/2025 Family History Relationship Description Onset Age of this Age Resolved Age Notes LastModified by Organization Details LastModified Time Mother Alzheimer's disease hpile Not available 2024 10:39:44 Notes:Father - Cancer Medical History Condition Response COPD Y Osteoporosis/Osteopenia Y Spine Problems Y Diabetes Y Obesity Y Arthritis Y Back Problems Y Reflux/GERD Y High Cholesterol Y Hypertension Y Gynecological History Statement/Question Response Sexually Active? N Obstetrics History GPAL:G 0 P 0 0 0 0 Past Encounters Encounter ID Performer Location Encounter Start Date Encounter Closed Date Diagnosis/Indication Diagnosis SNOMED-CT Code Diagnosis ICD10 Code Diagnosis IMO Codes Diagnosis Note [id number] MANJIT Haywooddebra garcia [facility] [address] [facility] [address] [place] [address] 04/25/2025 09:48:59 04/25/2025 10:35:52 Gastroesophageal reflux disease 767250019 K21.9 63038161 Discussed reflux disease the patient today. Advised Ozempic can slow GI transit time in exacerbate reflux. Advised caution in increasing dose of Ozempic. Advised small frequent meals.Janina ent is to continue omeprazole and Carafate.W e are ordering upper GI and upper endoscopy to further evaluate reflux status post sleeve gastrectom y.patient advised Focus should be on additional weight loss to help with reflux disease. Type 2 carmel betes mellitus 38206609 E11.9 50210329 Patient is currently on Ozempic Essential hypertension 48145636 I10 10716 History of gastrectomy 397048680 Z90.3 Advised qid intake 50% protein 1000 calories/d y less than 100 carbs/dyLo ng discussion today of [employer] results including PBF(percen t body fat) SMM (skeletal muscle mass) Visceral fat level level BMR Segmental Fat Analysis and Segmental Lean Analysis.E ncouraged pt to take minimal calories as per BMR and to anticipate changes in SMM and PBF values not just total weight.Fol low-up with Repeat CRISTHIAN in 3mth suggested Patient is status post bariatric surgery and at increased risk for vitamin deficienci es and malnutriti on. Bariatric vitamin panel ordered today. Patient will be contacted to correct any vitamin deficienci es. At [facility] ed risk of nutritional deficit 638367535 Z91.89 Obesity 135986281 E66.81 1 Z68.32 [id number], LD [facility] [address] [facility] [address] [place] [address] 04/25/2025 08:57:23 04/25/2025 13:13:26 Morbid obesity 730146820 E66.01 67276 BMI 32.4 Health Concerns Section Related Observation LastModified by Organization Detai ls LastModified Time None Recorded Concern Status LastModified by Organization Details LastModified Time None Recorded Advance Directives Directive Y: Payers Insurance Date Sequence Insurance Name Policy Number Policy Villanueva Covered Member ID Villanueva Member ID Guarantor Name 04/25/2025 2 AETNA [facility] (MEDICAID HMO) Reva Suresh [id number] Reva Suresh 04/25/2025 1 [employer] (MEDICARE REPLACEMENT/ ADVANTAGE - PPO) Reva Suresh [id number] Reva Suresh Notes Date Note Type Note Provider Name and Address Organization Details Recorded Time 04/25/2025 text/html Intake Template RDN met w/ MARANDA Blood 1960, who is a 64 YO to complete initial nutritional assessment for intake of bariatric surgery. Pt is interested in RNY. Height = 65in. Weight = 194.5# (BMI = 32.4). PMH significant for GERD, arthritis, DM, High cholesterol, HTN, osteopenia Past weight loss attempts: Ozempic Hx of eating disorder: No Prescription diet pills: No Herbal supplements: No Vitamins: MVI, Calcium citrate, Vit B Meal Pattern: B: skipsL: chicken salad, tomato chex mix, Pepsi zeroD: milk, something lightSnacks: chex mix, carrots/ranch, cheese Eating out: 2-3 times/week Beverages: Pepsi zero - 1-2/day, Water - 1 bottle Alcoholic consumption: occ Beer Smoking/Tobacco: No Exercise: No due to back issues Recent changes: None Motivation for surgery: GERD Support after surgery: Partner, friends Goals for surgery: Would like to weigh 130# Additional Notes:Weigh-Ins Needed: NoWeigh-Ins Scheduled: RDN recommendations:1. Start keeping food records2. Eat 3-6 times a day3. Review manual for meal and snack ideas, review vitamin recommendations in procedure manual4. Wean off Pepsi zero5. 64 oz of fluids with no calories, caffeine, or carbonation6. Physical activity 3 times a week - try chair exercises as tolerated Pt verbally agreeable to recommendations. Denied having further questions/concerns. RDN concludes that pt is a candidate for sx at this time. RDN will f/up and monitor PRN. DEBBI GOLDSMITH RD, LD [address], [place], [address], [facility] - [place] & [place] 04/25/2025 13:13:14 04/25/2025 text/html ROS as noted in the HPI 64-year-old female returns to clinic after a long hiatus from care. Patient is status post sleeve gastrectomy 2018. Review of chart shows patient has not been seen since one-month postop visitPMH: HTN HLD Emphysema DM Patient is to complaints of reflux and would like to discuss revisional options to see additional weight loss. Patient states she has significant reflux despite omeprazole and Carafate Prescribed her PCP. She reports p.m. reflux seeing when lying flat. She reports dyspepsia and occasional vomiting after eating. She states these symptoms were present prior to starting Ozempic and does not feel like symptoms have worsened with this medication.Patient does not track carbs calories and protein. She did meet with dietitian today for dietary education. She does voice attention to refocus on bariatric basis in order to see weight loss.patient does take vitamin supplementation including calcium. she wishes to have labs drawn at local facility due to being hard stick in body today she is BMI is 32.4 with 51.7% body fat skeletal muscle mass 50.3 lb which is 91% predicted basal metabolic rate 1291 MANJIT Haywood [address], [place], [address], [facility] - [place] - [place] & [place] 04/25/2025 10:47:15 OBGyn Episode No OBEpisode recorded.
--- OUTSIDE RECORDS SUMMARY | 2025-05-20 07:56 | XMS_ITS | Continuity of Care Document ---
Author Organization [facility] & [facility] Address [address] [facility] [place] [address] Care Team Providers Care Cost Reduction Engineer Name Role Phone HANG PEREZ Primary Care Provider Assessment No assessment recorded. Plan of Treatment Reminders Order Date Submit Date Provider Last Modified By Organization Details Last Modified Time Details Appointments None record ed. Lab None record ed. Referral None record ed. Procedures None record ed. Surgeries None record ed. Imaging None record ed. Medication Orders None record ed. Patient Targets Encounter Date Encounter Id Patient Goals Patient Target Last Modified By Organization Details Last Modified Time 04/25/2025 [id number] 1. Start keeping food records 2. Eat 3-6 times a day 3. Review manual for meal and snack ideas, review vitamin recommendations in procedure manual 4. Wean off Pepsi zero 5. 64 oz of fluids with no calories, caffeine, or carbonation 6. Physical activity 3 times a week - try chair exercises as tolerated [email or web address] Not available 04/25/2025 13:12:58 Patient InstructionsNo instructions recorded. Reason for Referral None Reported. Problems Name Problem SNOMED Code Status Onset Date Resolution Date Notes Provider Name and Address Organization Details Recorded Time Gastroesophag eal reflux disease 942262004 Active 2024 MANJIT Haywood [address] , [place], [address] , [facility] 10:31:04 Type 2 diabetes mellitus 25458178 Active 2024 MANJIT Haywood [address], [place], [address] , [facility] & [place] 5 10:31:32 Essential hypertension 85990418 Active [address], [place], [place], [address] [place] [address] , [facility] - [facility] & [place] 10:31:45 Intentional weight loss 448293351 Active [address], [place], [address] [place] [address] , [facility] - [facility] & [place] 10:31:57 Obesity 407951299 Active [address], [place], [address] [place] [address] , [facility] & [place] 10:36:57 Problem Notes None recorded. Procedures Surgical History Date Name Laterality Status Provider Name and Address Organization Details Recorded Time laparoscopic sleeve gastrectomy completed MANJIT [address], [place], [place], [address] [place] [address], [place] - [facility] & [place] 04/25/2025 08:54:29 section completed [address], [place], [address] [place] [address], [place] - [facility] & [place] 04/25/2025 08:54:43 arthroscopy of knee completed [address], [place], [address] [place] [address], [facility] - [facility] & [place] 04/25/2025 08:55:00 facial reconstruction completed [address], [place], [address] [place] [address], [place] - [facility] & [place] 04/25/2025 08:56:04 colonoscopy completed [address], [place], [address] [place] [address], [facility] - [facility] & [place] 04/25/2025 08:56:47 extraction of wisdom tooth completed [address], [place], [address], TRACY MATSON [facility] & [place] 04/25/2025 08:56:57 Back Surgery completed Trev MATSON [facility] & [place] 04/25/2025 09:53:51 arthrodesis of foot completed Trev MATSON [facility] & [place] 04/25/2025 10:00:36 Imaging Results None recorded. Procedure Notes None recorded. Medical Equipment None Reported. Allergies Allergen ID Allergen Name Allergen Category Reaction Reaction Severity Criticality Documentation Date Start Date Code Code System Note Provider Name and Address Organization Details Recorded Time 387358 Product containin g penicilli n (product) medicatio n Not available Not available Not available 04/25/2025 16702 8001 SNOMED Trev Darling-Bec faina barrientos, TRACY MATSON [facility] & [place] 5 09:54:06 281756 Substance with sulfonami de structure and antibacte rial mechanism of action (substanc e) medicatio n Not available Not available Not available 04/25/2025 73410 8003 SNOMED Trev Darling-Tori barrientos, TRACY MATSON [facility] & [place] 5 09:54:15 Medications Name Sig Start Date [...] Updated DateTime 5 165.1 cm 32.4 kg/m2 56140.7 2 g 72 /min 98 [degF] 133/85 mm[Hg] Trev MATSON [facility] & [place] 09:59:12 Social History Question Answer Notes LastModified by Organizat ion Details LastModified Time Tobacco Smoking Status Former Smoker Trev barrientos, TRACY MATSON [facility] & [place] 04/25/2025 09:53:25 Do You Have An Advance [...] anxious, or unable to sleep at night)? [id number] Information not available 04/25/2025 Family History Relationship [...] ICD10 Code Diagnosis IMO Codes Diagnosis Note [id number] MANJIT Haywood [facility] [address] [facility] [address] [place], [place] [address] 04/25/2025 09:48:59 04/25/2025 10:35:52 Gastroesophageal reflux disease 476318080 K21.9 22363162 Discussed reflux disease the patient today. Advised [...] reflux disease. Type 2 carmel betes mellitus 99105949 E11.9 04681692 Patient is currently on Ozempic Essential hypertension 08415698 I10 06555 History of gastrectomy 149971849 Z90.3 Advised qid intake 50% protein 1000 [...] to correct any vitamin deficienci es. At [facility] risk of nutritional deficit 429332422 Z91.89 Obesity 190349563 E66.81 1 Z68.32 801397[id number], LD [facility] [address] [place] [address] 04/25/2025 08:57:23 04/25/2025 13:13:26 Morbid obesity 789735015 E66.01 87501 BMI 32.4 Health Concerns Section Related Observation LastModified by Organization Detai ls LastModified Time None Recorded Concern Status LastModified by Organization Details LastModified Time None Recorded Payers Encounter Date Sequence Insurance Name Policy Number Policy Villanueva Covered Member ID Villanueva Member ID Guarantor Name 04/25/2025 1 [employer] (MEDICARE REPLACEMENT/ ADVANTAGE - PPO) Reva Suresh [id number] Reva Suresh 04/25/2025 2 AET[employer] [facility] (MEDICAID HMO) Reva Smith Kerwin [id number] Reva Smith Kerwin Notes Date Note Type Note Provider Name and Address Organization Details Recorded Time 04/25/2025 text/html Intake Template RDN met w/ Reva Suresh, 1960, who is a 64 YO to [...] and monitor PRN. DEBBI GOLDSMITH RD, LD [address], [place], [address], [facility] - [place] & [place] 04/25/2025 13:13:14 04/25/2025 text/html ROS as noted [...] predicted basal metabolic rate 1291 MANJIT Haywood [address], [place], [address], [facility] - [place] - [place] & [place] 04/25/2025 10:47:15 OBGyn Episode No OBEpisode recorded.
--- OUTSIDE RECORDS SUMMARY | 2025-05-20 07:57 | XMS_ITS | Continuity of Care Document ---
Author Organization [place] 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 Plan of Treatment Reminders Order Date Submit Date Provider Last Modified By Organization Details Last Modified Time Details Appointments None recorded. Lab HbA1c (hemoglobin A1c), blood 2024 025 [facility], [address], [address], [place], [address], 5 05:51:35 lipid panel, serum 2024 025 [facility]O [facility], [address], [address], [place], [address], 5 19:58:02 folate, serum 2024 025 [facility]O [facility], [address], [address], [place], [address], 5 04:14:08 prealbumin, serum 2024 025 [facility], [address], [address], [place], [address], 5 04:14:08 thiamine, QN, blood 2024 025 [facility]O [facility], [address], [address], [place], [address], 5 04:14:08 methylmalon ate, QN, serum or plasma 2024 025 [facility]O [facility], [address], [address], [place], [address], 5 04:14:09 CBC w/ auto diff 2024 025 [facility], [address], [address], [place], [address], 5 09:35:28 CMP, serum or plasma 2024 025 [facility]O [facility], [address], [address], [place], [address], 5 19:58:02 iron + TIBC + ferritin, serum 2024 025 [facility], [address], [address], [place], [address], 5 04:14:09 vitamin D, 25-hydroxy, total, serum 2024 025 [facility], [address], [address], [place], [address], 5 13:40:16 vitamin E, serum 2024 025 SEVERIANO [facility], [address], [address], [place], [address], 5 04:14:10 vitamin A (retinol), serum 2024 025 [facility], [address], [address], [place], [address], 5 04:14:10 TSH + free T4, serum 2024 025 [place] [facility], [address], [address], [place], [address], 5 04:14:10 Referral None recorded. Procedures None recorded. Surgeries esophagogas troduodenos copy (SURG) 2024 025 [email or web address] Tania Gudino MD, [address], [address], [place], [address], 5 10:01:05 Imaging RF, upper gastrointes tinal tract, w/ contrast PO 2024 025 [place] [id number] [facility] (Centralized Scheduling), [address], [place], [address], 5 14:23:19 Medication Orders None recorded. Patient TargetsNo targets recorded. Patient InstructionsNo instructions recorded. Reason for Referral None Reported. Problems Name Problem SNOMED Code Status Onset Date Resolution Date Notes Provider Name and Address Organization Details Recorded Time Gastroesophag eal reflux disease 353069290 Active 2024 MANJIT Haywood [address], [place], [address] , [place] [facility] & [place] 5 10:31:04 Type 2 diabetes mellitus 18627123 Active 2024 MANJIT Haywood [address] , [place], [address] , [place] [facility] & [place] 5 10:31:32 Essential hypertension 90660163 Active 2024 MANJIT Haywood [address] , [place], [address] , [place] [facility] & [place] 5 10:31:45 Intentional weight loss 312630127 Active 2024 MANJIT Haywood [address] , [place], [address] , [facility] & [place] 10:31:57 Obesity 506005376 Active [address], [place], [address] , [facility] & [place] 10:36:57 Problem Notes None recorded. Procedures Surgical History Date Name Laterality Status Provider Name and Address Organization Details Recorded Time laparoscopic sleeve gastrectomy completed [address], [place], [place], [address] [place] [address], [facility] [place] 04/25/2025 08:54:29 section completed [address], [place], [place], [address] [place] [address], [facility] [place] 04/25/2025 08:54:43 arthroscopy of knee completed [address], [place], [address] [place] [address], [facility] & [place] 04/25/2025 08:55:00 facial reconstruction completed [address], [place], [address], [facility] & [place] 04/25/2025 08:56:[address], [place], [address], [facility] & [place] 04/25/2025 08:56:47 extraction of wisdom tooth completed [address], [place], [address], [facility] & [place] 04/25/2025 08:56:57 Back Surgery completed [facility] [place] 04/25/2025 09:53:51 arthrodesis of foot completed Trev MOLINA [facility] & [place] 04/25/2025 10:00:36 Imaging Results None recorded. Procedure Notes None recorded. Medical Equipment None Reported. Allergies Allergen ID Allergen Name Allergen Category Reaction Reaction Severity Criticality Documentation Date Start Date Code Code System Note Provider Name and Address Organization Details Recorded Time 033054 Product containin g penicilli n (product) medicatio n Not available Not available Not available 04/25/2025 13179 8001 SNNATASHA Karimi Sharp-Bec faina barrientos, [place] - [facility] & [place] 5 09:54:06 055635 Substance with sulfonami de structure and antibacte rial mechanism of action (substanc e) medicatio n Not available Not available Not available 04/25/2025 43318 8003 SNOMED Trev Sharp-Bec faina barrientos, [place] - [facility] - [place] & [place] 5 09:54:15 Medications Name Sig Start Date [...] Updated DateTime 5 165.1 cm 32.4 kg/m2 16850.7 2 g 72 /min 98 [degF] 133/85 mm[Hg] [facility] [place] 09:59:12 Social History Question Answer Notes LastModified by Organizat ion Details LastModified Time Tobacco Smoking Status Former Smoker Trev Covarrubias [facility] & [place] 04/25/2025 09:53:25 Do You Have An Advance [...] anxious, or unable to sleep at night)? [id number] Information not available 04/25/2025 Family History Relationship Description Onset Age of this Age Resolved Age Notes LastModified by Organization Details LastModified Time Mother Alzheimer's disease hpile Not available 2024 10:39:44 Notes:Father - Cancer Medical History Condition Response COPD Y Spine Problems Y Obesity Y Arthritis Y High Cholesterol Y Osteoporosis/Osteopenia Y Diabetes Y Back Problems Y Reflux/GERD Y Hypertension Y Gynecological History Statement/Question Response Sexually Active? N Obstetrics History GPAL:G 0 P 0 0 0 0 Past Encounters Encounter ID Performer Location Encounter Start Date Encounter Closed Date Diagnosis/Indication Diagnosis SNOMED-CT Code Diagnosis ICD10 Code Diagnosis IMO Codes Diagnosis Note [id number] MANJIT Haywood [facility] [address] [place] [address] [address] [place] [address] 04/25/2025 09:48:59 04/25/2025 10:35:52 Gastroesophageal reflux disease 176673069 K21.9 21455449 Discussed reflux disease the patient today. Advised [...] reflux disease. Type 2 carmel betes mellitus 59380964 E11.9 64918150 Patient is currently on Ozempic Essential hypertension 79725203 I10 05049 History of gastrectomy 658027338 Z90.3 Advised qid intake 50% protein 1000 [...] to correct any vitamin deficienci es. At [facility] risk of nutritional deficit 095529427 Z91.89 Obesity 117230239 E66.81 1 Z68.[id number], [place] [facility] [address] [place] [address] 04/25/2025 08:57:23 04/25/2025 13:13:26 Morbid obesity 831702918 E66.01 38750 BMI 32.4 Health Concerns Section Related Observation LastModified by Organization Detai ls LastModified Time None Recorded Concern Status LastModified by Organization Details LastModified Time None Recorded Payers Encounter Date Sequence Insurance Name Policy Number Policy Villanueva Covered Member ID Villanueva Member ID Guarantor Name 04/25/2025 1 [employer] (MEDICARE REPLACEMENT/ ADVANTAGE - PPO) Reva Suresh [id number] Reva Suresh 04/25/2025 2 [employer] (MEDICAID HMO) Reva Suresh [id number] Reva Suresh Notes Date Note Type Note Provider Name and Address Organization Details Recorded Time 04/25/2025 text/html Intake Template MARCELA met w/ Reva Suresh, 1960, who is [...] and monitor PRN. DEBBI GOLDSMITH RD, [place] [address], [place], [address], [facility] - [place] & [place] 04/25/2025 13:13:14 04/25/2025 text/html ROS as noted in the HPI 64-year-old female returns to clinic after a long hiatus from care. Patient is status post sleeve gastrectomy 2019. Review of chart shows patient has not [...] predicted basal metabolic rate [id number] MANJIT Haywood [address], [place], [address], [facility] [place] - [place] & [place] 04/25/2025 10:47:15 OBGyn Episode No OBEpisode recorded.
--- OUTSIDE RECORDS SUMMARY | 2025-05-20 07:57 | XMS_ITS | Data Portability ---
Author Organization [facility] Office Address [address] [address] [place] [address] Care Team Providers Care Potato Loader Name Role Phone ODELL CUNNINGHAM Primary Care Provider [phone] Assessment Encounter Date Assessment Date Assessment LastModified [...] ,Meth,Op,Oxy,U-Cr eat) Labs drawn to monitor the half-way effects of current medication. Return to clinic: [...] - 02/06/2024 reviewed, and is Appropriate. . [email or web address] Not available 03/06/2024 09:31:18 05/02/2024 05/02/2024 Medication [...] Meds: Hydrocodon e, Gabapentin 2023 024 SEVERIANO Mortensen MD [facility] (In House Lab), [address], [place], [address], 4 09:12:29 drug screen, urine - Meds: nydrocodon e 2023 024 inez Mortensen MD [facility] (In House Lab), [facility] [place], [address], 4 15:58:55 CBC w/ auto diff 2023 024 inez Mortensen MD [facility] (In House Lab), [facility] [place], [address], 4 08:12:31 hepatic function panel, serum 2023 024 inez Mortensen MD [facility] (In House Lab), [facility] [place], [address], 4 15:58:56 gamma-glut amyl transferas e (ggt), serum 2023 024 inez Mortensen MD [facility] (In House Lab), [facility] [place], [address], 4 08:12:31 venipunctu re 2023 024 inez Mortensen MD [facility] (In House Lab), [facility] [place], [address], 4 15:58:56 drug screen, urine - Meds: 2023 024 SEVERIANO Mortensen MD [facility] (In House Lab), [facility] [place], [address], 4 08:49:42 CMP, serum or plasma 2023 024 Cm Mortensen MD [facility] (In House Lab), [address] [place], [address], 4 09:14:21 gamma-glut amyl transferas e (ggt), serum 2023 024 emily Mortensen MD [facility] (In House Lab), [address] [facility], [place], [address], 4 09:14:22 CBC w/ auto diff 2023 024 emily Mortensen MD [facility] (In House Lab), [address] [facility], [place], [address], 4 09:14:22 venipunctu re 2023 024 [email or web address] Cm Mortensen MD [facility] (In House Lab), [address] [facility], [place], [address], 4 11:11:10 Referral None recorded. Procedures None recorded. Surgeries None recorded. Imaging MRI, lumbar spine, w/o contrast - lumbar MRI wiithout contrast 2023 024 [email or web address] 08 [facility] ([facility]), [address], [place], [address], 4 13:56:25 Medication Orders hydrocodon e 10 mg-acetami nophen 325 mg tablet 2023 024 [facility], [address] [place] [address], [id number], 4 14:47:46 hydrocodon e 5 mg-acetami nophen 325 mg tablet 2023 024 [facility], [address] [place] [address], [place], [place], [id number], 4 10:37:56 hydrocodon e 5 mg-acetami nophen 325 mg tablet 2023 024 [facility], [address] [place] [address] S, TRACY Cornejo, [id number], 4 10:37:57 hydrocodon e 5 mg-acetami nophen 325 mg tablet 2023 024 [facility], [address] [place] [address] S, TRACY Cornejo, [id number], 4 10:15:31 hydrocodon e 5 mg-acetami nophen 325 mg tablet 2023 024 [facility], [address] [place] [address] S, TRACY Cornejo, [id number], 4 10:15:33 hydrocodon e 5 mg-acetami nophen 325 mg tablet 2023 024 [facility], [address] [place] [address] S, TRACY Cornejo, [id number], 4 11:04:37 hydrocodon e 5 mg-acetami nophen 325 mg tablet 2023 024 [facility], [address] [place] [address] S, TRACY Cornejo, [id number], 4 11:04:34 Patient Targets Encounter Date Encounter Id Patient Goals Patient Target Last Modified By Organization Details Last Modified Time 12/01/[id number] . [email or web address] Not available 2023 08:34:10 Patient Instructions Encounter Date Encounter Id Patient Instructions Last Modified By Organization Details Last Modified Time 10/06/[id number] Take medication as directed. Keep all appointments as scheduled. Call the office if any problems. Notify the office if have to reschedule at earliest time. [email or web address] Not available 10/06/2023 10:04:19 12/01/[id number] She has upcoming right knee surgery. She [...] be obtained to facilitate continuity of care. [facility]: most recent CBC, CMP [email or web address] Not available 12/01/2023 08:32:56 03/06/[id number] . [email or web address] Not available 03/06 09:31:48 Patient seen today incident to a physician s previously established diagnosis and plan of care. Follow-up care provided today under the plan of care of: Henrik Ward MD and supervision of: Jesus Mortensen MD. She does feel as if she needs to be able to take the HCD more frequently - feels that dose is effective, however. Will increase to QID prn. [email or web address] Not available 03/06/2024 09:35:39 05/02/[id number] Patient seen today incident to a physician s previously established diagnosis and plan of care. Follow-up care provided today under the plan of care of: Henrik Ward MD and supervision of: Libra Lopez MD. [email or web address] Not available 05/02/2024 12:02:06 05/31/[id number] 1. Continue current medications 2. Encourage light [...] HEN abnormal status abnormal Not Available Kareem Mortensen MD [facility] (In House Lab) [address] [place] [address], [id number], 10/11/2023 08:49:44 10/06/19 24 10/10/2023 OXYCO DONE DEFIN ITIVE PANEL -LC/M S oxycodone 117.1 NG/mL <75.0 abnormal Not Available Cm Mortensen MD [facility] (In House Lab) [address] [place] [address], [address], 10/11/2023 08:49:44 10/06/19 24 10/10/2023 OXYCO DONE DEFIN ITIVE PANEL -LC/M S noroxycodone 0 NG/mL <75.0 Not Available Tomasz Mortensen MD [facility] (In House Lab) [address] [place] [address], [id number], 10/11/2023 08:49:44 10/06/19 24 10/10/2023 OXYCO DONE DEFIN ITIVE PANEL -LC/M S oxymorphone 0 NG/mL <75.0 Not Available Kareem Mortensen MD [facility] (In House Lab) [address] [place] [address], [address], 10/11/2023 08:49:44 10/06/19 24 10/11/2023 OPIAT E DEFIN ITIVE PANEL LC/MS codeine 0.0 NG/mL <75.0 Not Available Cm Mortensen MD [facility] (In House Lab) [address] [place] [address], [address], 10/11/2023 08:49:43 10/06/19 24 10/11/2023 OPIAT E DEFIN ITIVE PANEL LC/MS morphine 0 NG/mL <75.0 Not Available Cm Mortensen MD [facility] (In House Lab) [address] [place] [address], [address], 10/11/2023 08:49:43 10/06/19 24 10/11/2023 OPIAT E DEFIN ITIVE PANEL LC/MS 6-TILA 0 NG/mL <15.0 Not Available Cm Mortensen MD [facility] (In House [facility]) [address] [place] [address], [address], 10/11/2023 08:49:43 10/06/19 24 10/11/2023 OPIAT E DEFIN ITIVE PANEL LC/MS hydromorphon e 0 NG/mL <75.0 Not Available Kareem Mortensen MD [facility] (In House [facility]) [address] [place] [address], [address], 10/11/2023 08:49:43 10/06/19 24 10/11/2023 OPIAT E DEFIN ITIVE PANEL LC/MS hydrocodone 159.1 NG/mL <75.0 abnormal Not Available Tomasz Mortensen MD [facility] (In House [facility]) [address] [place] [address], [address], 10/11/2023 08:49:43 10/06/19 24 10/11/2023 OPIAT E DEFIN ITIVE PANEL LC/MS norhydrocodo ne 0 NG/mL <75.0 Not Available Kareem Mortensen MD [facility] (In House [facility]) [address] [place] [address], [address], 10/11/2023 08:49:43 10/06/19 24 10/11/2023 GABAP ENTIN DEFIN ITIVE PANEL -LC/M S gabapentin >14120 NG/mL <5000. 0 abnormal Not Available Cm Mortensen MD [facility] (In House [facility]) [address] [place] [address], [address], 10/11/2023 08:49:43 10/06/19 24 10/06/2023 D-PRE SUMPT BRODIE URINE DRUG REPOR T amphetamine NEGATI VE NG/mL <1000. 0 Not Available Cm Mortensen MD [facility] (In House [facility]) [address] [place] [address], [address], 10/11/2023 08:49:42 10/06/19 24 10/06/2023 D-PRE SUMPT BRODIE URINE DRUG REPOR T benzodiazepi ne 8.0 NG/mL <200.0 Curre nt metho d may not detec t low level s of Klono pin Not Available Cm Mortensen MD [facility] (In House [facility]) [address] [place] [address], [address], 10/11/2023 08:49:42 10/06/19 24 10/06/2023 D-PRE SUMPT BRODIE URINE DRUG REPOR T buprenorphin e NEGATI VE NG/mL <10.0 Not Available Cm Mortensen MD [facility] (In House [facility]) [address] [place] [address], [address], 10/11/2023 08:49:42 10/06/19 24 10/06/2023 D-PRE SUMPT BRODIE URINE DRUG REPOR T cannabinoid NEGATI VE NG/mL <50.0 Not Available Cm Mortensen MD [facility] (In House [facility]) [address] [place] [address], [address], 10/11/2023 08:49:42 10/06/19 24 10/06/2023 D-PRE SUMPT BRODIE URINE DRUG REPOR T cocaine NEGATI VE NG/mL <300.0 Not Available Cm Mortensen MD [facility] (In House [facility]) [address] [place] [address], [address], 10/11/2023 08:49:42 10/06/19 24 10/06/2023 D-PRE SUMPT BRODIE URINE DRUG REPOR T ethanol NEGATI VE mg/dL <50.0 Not Available Cm Mortensen MD [facility] (In House [facility]) [address] [place] [address], [address], 10/11/2023 08:49:42 10/06/19 24 10/06/2023 D-PRE SUMPT BRODIE URINE DRUG REPOR T methadone 11.0 NG/mL <300.0 Not Available Cm Mortensen MD [facility] (In House [facility]) [address] [place] [address], [address], 10/11/2023 08:49:42 10/06/19 24 10/06/2023 D-PRE SUMPT BRODIE URINE DRUG REPOR T opiates 44.0 NG/mL <300.0 Opiat es inclu blanca Codei ne,Mo rphin e, [place] morph one,H ydroc odone Not Available Cm Mortensen MD [facility] (In House [facility]) [address] [place] [address], [address], 10/11/2023 08:49:42 10/06/19 24 10/06/2023 D-PRE SUMPT BRODIE URINE DRUG REPOR T oxycodone 125.0 NG/mL <300.0 Not Available Cm Mortensen MD [facility] (In House [facility]) [address] [place] [address], [address], 10/11/2023 08:49:42 10/06/19 24 10/06/2023 D-PRE SUMPT BRODIE URINE DRUG REPOR T urine creatinine (validity test) 29.4 mg/dL 20.0 - 300.0 Not Available Cm Mortensen MD [facility] (In House [facility]) [address] [place] [address], 132[address], 10/11/2023 08:49:42 03/06/20 24 03/06/2024 GABAP ENTIN abnormal status high Not Available Kareem Mortensen MD [facility] (In House [facility]) [address] [place] [address], [address], 03/07/2024 09:12:31 03/06/20 24 03/06/2024 GABAP ENTIN abnormal status low Not Available Kareem Mortensen MD [facility] (In House [facility]) [address] [place] [address], [address], 03/07/2024 09:12:31 03/06/20 24 03/07/2024 OPIAT E DEFIN ITIVE PANEL LC/MS codeine 0.0 NG/mL <75.0 Not Available Cm Mortensen MD [facility] (In House [facility]) [address] [place] [address], 150[address], 03/07/2024 09:12:30 03/06/20 24 03/07/2024 OPIAT E DEFIN ITIVE PANEL LC/MS morphine 0 NG/mL <75.0 Not Available Cm Mortensen MD [facility] (In House [facility]) [address] [place] [address], [address], 03/07/2024 09:12:30 03/06/20 24 03/07/2024 OPIAT E DEFIN ITIVE PANEL LC/MS 6-TILA 0 NG/mL <15.0 Not Available Cm Mortensen MD [facility] (In House [facility]) [address] [place] [address], [address], 03/07/2024 09:12:30 03/06/20 24 03/07/2024 OPIAT E DEFIN ITIVE PANEL LC/MS hydromorphon e 0 NG/mL <75.0 Not Available Kareem Mortensen MD [facility] (In House [facility]) [address] [place] [address], [address], 03/07/2024 09:12:30 03/06/20 24 03/07/2024 OPIAT E DEFIN ITIVE PANEL LC/MS hydrocodone 0 NG/mL <75.0 Not Available Kareem Mortensen MD [facility] (In House [facility]) [address] [place] [address], [address], 03/07/2024 09:12:30 03/06/20 24 03/07/2024 OPIAT E DEFIN ITIVE PANEL LC/MS norhydrocodo ne 0 NG/mL <75.0 Not Available Kareem Mortensen MD [facility] (In House [facility]) [address] [place] [address], [address], 03/07/2024 09:12:30 03/06/20 24 03/07/2024 GABAP ENTIN DEFIN ITIVE PANEL -LC/M S gabapentin <5000 NG/mL <5000. 0 Not Available Cm Mortensen MD [facility] (In House [facility]) [address] [place] [address], [address], 03/07/2024 09:12:29 03/06/20 24 03/06/2024 D-PRE SUMPT BRODIE URINE DRUG REPOR T amphetamine NEGATI VE NG/mL <1000. 0 Not Available Cm Mortensen MD [facility] (In House [facility]) [address] [place] [address], [address], 03/07/2024 09:12:29 03/06/20 24 03/06/2024 D-PRE SUMPT BRODIE URINE DRUG REPOR T benzodiazepi ne 22.0 NG/mL <200.0 Curre nt metho d may not detec t low level s of Klono pin Not Available Cm Mortensen MD [facility] (In House [facility]) [address] [place] [address], [address], 03/07/2024 09:12:29 03/06/20 24 03/06/2024 D-PRE SUMPT BRODIE URINE DRUG REPOR T buprenorphin e NEGATI VE NG/mL <10.0 Not Available Cm Mortensen MD [facility] (In House [facility]) [address] [place] [address], [address], 03/07/2024 09:12:29 03/06/20 24 03/06/2024 D-PRE SUMPT BRODIE URINE DRUG REPOR T cannabinoid NEGATI VE NG/mL <50.0 Not Available Cm Mortensen MD [facility] (In House [facility]) [address] [place] [address], [address], 03/07/2024 09:12:29 03/06/20 24 03/06/2024 D-PRE SUMPT BRODIE URINE DRUG REPOR T cocaine NEGATI VE NG/mL <300.0 Not Available Cm Mortensen MD [facility] (In House [facility]) [address] [place] [address], 07456, 03/07/2024 09:12:29 03/06/20 24 03/06/2024 D-PRE SUMPT BRODIE URINE DRUG REPOR T ethanol NEGATI VE mg/dL <50.0 Not Available Cm Mortensen MD [facility] (In House [facility]) [address] [place] [address], [address], 03/07/2024 09:12:29 03/06/20 24 03/06/2024 D-PRE SUMPT BRODIE URINE DRUG REPOR T methadone 11.0 NG/mL <300.0 Not Available Cm Mortensen MD [facility] (In House Lab) [address] [place], [address], 03/07/2024 09:12:29 03/06/20 24 03/06/2024 D-PRE SUMPT BRODIE URINE DRUG REPOR T opiates 930.0 NG/mL <300.0 high Opiat es inclu blanca Codei ne,Mo rphin e, [place] morph one,H ydroc odone Not Available Cm Mortensen MD [facility] (In House Lab) [address] [place], [address], 03/07/2024 09:12:29 03/06/20 24 03/06/2024 D-PRE SUMPT BRODIE URINE DRUG REPOR T oxycodone 30.0 NG/mL <300.0 Not Available Cm Mortensen MD [facility] (In House Lab) [address] [place] [address], [address], 03/07/2024 09:12:29 03/06/20 24 03/06/2024 D-PRE SUMPT BRODIE URINE DRUG REPOR T urine creatinine (validity test) 13.0 mg/dL 20.0 - 300.0 low Not Available Cm Mortensen MD [facility] (In House [facility]) [address] [place] [address], [address], 03/07/2024 09:12:29 Result Notes None recorded. Problems Name Problem SNOMED Code Status Onset Date Resolution Date Notes Provider Name and Address Organization Details Recorded Time Pain of right knee joint 8340736910126 00 Active 2023 Gracy Cardona, EMMANUEL [address] [place], [address], [facility] 07:13:56 Pain in right foot 4538416917202 07 Active 2023 Gracy Cardona, [employer] [address] [place], [address], [facility] 4 07:13:56 Arthrodesis of foot Active 2023 Gracy Cardona, [employer] [address] [facility], [place], [address], [facility] 4 07:18:55 Degeneratio n of lumbar interverteb ral disc 73649569 Active 2023 Gracy Cardona, [employer] [address] [place], [address], [facility] 4 07:20:55 Problem Notes None recorded. Procedures Surgical History Date Name Laterality Status Provider Name and Address Organization Details Recorded Time procedure on foot completed [facility] 10/06/2023 10:41:08 procedure on knee completed [facility] 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 10/06/2023 10:41:39 Imaging Results None recorded. Procedure Notes None recorded. Medical Equipment None Reported. Allergies Allergen ID Allergen Name Allergen Category Reaction Reaction Severity Criticality Documentation Date Start Date Code Code System Note Provider Name and Address Organization Details Recorded Time 06456 Substance with sulfonami de structure and antibacte rial mechanism of action (substanc e) medicatio n Not available Not available Not available 10/06/2023 88288 8003 SNOMED [facility] 10:39:58 11461 Product containin g penicilli n (product) medicatio n Not available Not available Not available 10/06/2023 44399 8001 SNOMED [facility] 10:40:09 [...] Details Last Updated DateTime 4 16 /min 93047.4 7 g 101 /min 98.1 [degF] 120/81 mm[Hg] [facility] 4 10:42:31 Date Recorded Body weight Respiratory rate Body temperature Heart rate Systolic And Diastolic Provider Name and Address Organization Details Last Updated DateTime 4 99762.4 7 g 16 /min 97.9 [degF] 73 /min 148/87 mm[Hg] Kelly [facility] 4 08:15:59 Date Recorded Body weight Body mass index (BMI) Body height Body temperature Heart rate Respiratory rate Systolic And Diastolic Provider Name and Address Organization Details Last Updated DateTime 4 55705.8 8 g 33.1 kg/m2 165.1 cm 98 [degF] 112 /min 16 /min 168/61 mm[Hg] Cong [facility] 4 08:31:33 Date Recorded Body height Respiratory rate Provider N leon and Address Organization Details Last Updated DateTime 05/31/2024 165.1 cm 16 /min Mari [facility] 05/31/2024 14:43:34 Social History Question [...] History Nothing Reported. Medical History Condition Response Rating Examiner Y Home Exercise Program Y Gynecological HistoryNo [...] ICD10 Code Diagnosis IMO Codes Diagnosis Note [id number] HENRIK WARD MD [address] [place] [address] 4 10/06/2023 10:16:16 10/06/2023 11:22:50 Long-term current use of opiate analgesic drug 4144669100 03676 Z79.891 Diagnostic /Lab: Order Presumptiv e UDT [...] fentanyl, tapentadol and carisoprod ol).HP2 (CBC/CMP/G GT) C BC - ordered to monitor the effects of prescribed medication CMP/GGT - ordered to obtain baseline levels for renal and hepatic functions and electrolyt e statusdraw n to monitor the half-way effects of current medication . Low back pain 360698666 M54.50 Pain of ri ght knee joint 6728786929 46423 M25.561 Pain in right foot 55960 48045 63429 M79.729 [id number] Gracy Cardona, [employer] [facility] [address] 12/01/2023 07:59:26 12/01/2023 12:48:53 Long-term current use of opiate analgesic drug 6254302664 71824 Z79.891 Pain in right foot 36118 10663 54914 M79.671 Pain of ri ght knee joint 3397215635 76804 M25.561 Degenerati on of lumbar intervertebral disc 00377356 M51.36 [id number] Anette Nolasco, [employer] [facility] [place] [address] 03/06/2024 08:25:55 03/06/2024 10:15:08 Degeneration of lumbar intervertebral disc 90138937 M51.36 Pain in right foot 42492 18897 42968 M79.671 Pain of ri ght knee joint 5996431073 33542 M25.561 Long-term current use of opiate analgesic drug 1708984463 00300 Z79.891 Diagnostic /Lab: Order Presumptiv e UDT [...] tapentadol and carisoprod ol). 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 [id number] Anette Nolasco, [employer] [address] [place] [address] 4 05/02/2024 08:02:45 05/03/2024 12:11:46 Pain in right foot 6345337510 93688 M79.671 Chronic low back pain 27 5433797 M54.50 [id number] Meryl Alexandra, [employer] [facility] [place] [address] 4 05/31/2024 14:17:27 05/31/2024 15:14:34 Degeneration of lumbar intervertebral disc 29883152 M51.369 Pain of ri ght knee joint 7755070653 64559 M25.561 Health Concerns Section Related Observation LastModified by Organization Detai ls LastModified Time None Recorded Concern Status LastModified by Organization Details LastModified Time None Recorded Advance Directives Directive None Recorded Payers Insurance Date Sequence Insurance Name Policy Number Policy Villanueva Covered Member ID Villanueva Member ID Guarantor Name 10/13/2024 1 [employer] [facility] (MEDICAID HMO) Reva Suresh [id number] Reva Suresh 07/16/2024 2 [place] [place]FS/TRADITIO NAL Reva Suresh [id number] Reva Suresh 07/16/2024 1 [employer] [facility] (MEDICAID HMO) Reva Suresh [id number] Reva Suresh 07/16/2024 1 [place] [facility] MEDICAID (HMO) [id number] Reva Suresh [id number] Reva Suresh Notes Date Note Type Note [...] No MRI is available HENRIK WARD MD [address], [place], [address], [facility] 10/06/2023 11:01:43 12/01/2023 text/html Reva Birmingham, a 63 year old female patient is [...] 6 hours without SE. Gracy Cardona APRN [address], [place], [address], [facility] 03/01/2024 15:48:31 03/06/2024 text/html CC: back and joint pain She is here to be seen in follow up for her chronic pain complaints. Her medication is partially effective, and she tolerates it without SE. 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 She recently had a left TKR and right arthroscopic meniscal repair. Anette Mayank Nolasco, [employer] [address], [place], [address], [place] [facility] 03/07/2024 13:10:37 05/02/2024 text/html CC: [...] a temporary increase in her medication. Anette Nolasco, EMMANUEL [address], [place], [address], [facility] 05/29/2024 09:44:41 OBGyn Episode No OBEpisode recorded.
--- NOTE | 2025-05-20 07:58 | FL_ITS ---
FINAL REPORT CLINICAL HISTORY: CHRONIC GERD pre-op for gastric bypass 1524.3 dap 1.29 fluoro time FINDINGS: UPPER GI SERIES, single contrast HISTORY: Chronic GERD, preoperative for gastric bypass. TECHNIQUE: Patient ingested thick and thin barium contrast. Spot images were performed. 47 images were saved. FINDINGS: There is severe esophageal dysmotility. A small sliding-type hiatal hernia is identified. There are postoperative changes of gastric sleeve. There is no leak or obstruction. The duodenal bulb and sweep appear unremarkable. There is gastroesophageal reflux of the thoracic inlet. 13 mm barium tablet passes easily through the esophagus and into the stomach. FLUOROSCOPY TIME: 1 minute 29 seconds Radiation exposure in total DAP: 1524.3 uGym2 IMPRESSION: Severe esophageal dysmotility. Small hiatal hernia with gastroesophageal reflux. Postoperative changes of gastric sleeve. Reviewed, Interpreted and Dictated by Poppy Harley MD Transcribed by Shelly Somers PA-C Authenticated and [facility]
[2025-05-20] MEDS: BARIUM SULFATE (E-Z-HD 340GM);135ML BOTTLE 135 ML PO (08:42)
[2025-05-20] MEDS: BARIUM SULFATE(E-Z-AC);750ML BOTTLE 750 ML PO (08:42)
== END 2025-05-20 23:59 | disposition home or self-care (01) ==
LOC: RAD 07:55
PROVIDERS: PCP Internal Medicine; Visit Provider Physician Assistant
DX: K22.4 Dyskinesia of esophagus (principal); K44.9 Diaphragmatic hernia without obstruction or gangrene; K21.9 Gastro-esophageal reflux disease without esophagitis; Z98.890 Other specified postprocedural states
CPT/HCPCS: 74240

== ENCOUNTER 2025-05-23 07:16 | Day surgery (SDC) | payer MEDICARE, OTHER, SELFPAY ==
--- NOTE | 2025-05-20 07:19 | EXP.HP ---
History of Present Illness *Admission Date: 05/23/25 *History of present illness: Mrs. Suresh is a 64-year-old female who is here for follow-up screening/surveillance colonoscopy. The patient did have a colonoscopy in May 2019 (Juan M Gonzalez M.D.) and had a sessile serrated adenoma of the ileocecal valve and other adenomatous polyps. He repeated colonoscopy again in June 2020 and had 4 polyps (tubular adenomas x 2/small serrated adenoma x 1/hyperplastic polyp x 1) which were removed.. The examination is deemed medically necessary for screening/surveillance colonoscopy. The patient has been seen, interviewed and examined prior to the procedure by both myself and the anesthesia provider. [facility] Disclaimer: The information contained in this section may have been updated after the patient was seen, as this information can be updated by other users. Medical History Hyperkalemia Diabetes mellitus, type 2 Stopped smoking between 1 and 5 years ago Restrictive lung disease Dyspnea on exertion ILD (interstitial lung disease) Right knee injury GERD (gastroesophageal reflux disease) Anxiety Overdose Hyperlipidemia Depression Hypertension COPD (chronic obstructive pulmonary disease) Vitamin D deficiency (~09/28/17) Surgical History History of rhizotomy S/P kyphoplasty History of left knee replacement History of back surgery History of arthroplasty of right knee History of arthroplasty of left knee History of colonoscopy H/O lumpectomy H/O breast biopsy H/O arthroscopy of left knee History of foot surgery Family History Other No significant family history Social History (Updated 05/23/25 @ 07:46 by Suad Hicks RN) Smoking Status: Never smoker second hand exposure: No alcohol intake: never substance use type: denies use current occupational status: retired and disabled Travel in the last 8 weeks?: None housing: house current occupational exposures/hazards: No caffeine: Yes Have you lived/traveled outside US in past 30 days?: No Contact w/someone who lives/traveled outside US past 30 days?: No Exposure to someone with infectious disease in past 14 days?: No Do you have a fever (greater than 100.4 F or 38 C)?: No Have you tested positive for COVID-19?: No Exposed to someone with COVID-19 in past 14 days?: No Do you have a sore throat?: No Do you have a cough?: No Do you have any weakness?: No Are you experiencing any nausea/vomitting?: No Do you have any diarrhea?: No Are you experiencing any unusual bleeding?: No Do you have any muscle aches/pain?: No Do you have any abdominal pain?: No Are you experiencing loss of taste or smell?: No Other Medical History Have you received the Flu Vaccine for this season: No Have you received the Pneumonia Vaccine: Yes Review of Systems Review of Systems Review of systems (narrative): Negative *Cardiovascular Comments: Negative *Gastrointestinal Comments: Negative *Genitourinary Comments: Negative *Musculoskeletal Comments: Negative *Neurologic Comments: Negative Meds Home Medications and Allergies Home Medications ?Medication ?Instructions ?Recorded ?Confirmed ?Type atorvastatin 10 mg tablet 10 mg PO DAILY 01/22/25 05/23/25 History diclofenac sodium 1 % topical gel 2 g topical QID 01/22/25 05/23/25 History lisinopril 20 1 tab PO DAILY 01/22/25 05/23/25 History mg-hydrochlorothiazide 25 mg tablet omeprazole 40 mg capsule,delayed 40 mg PO DAILY 01/22/25 05/23/25 History release risperidone 2 mg tablet 2 mg PO HS 01/22/25 05/23/25 History tiotropium 2.5 mcg-olodaterol 2.5 See Rx Instructions .Route 02/18/25 05/23/25 Rx mcg/actuation mist for inhalation .COMPLEX #4 grams (Stiolto Respimat) albuterol sulfate 90 mcg/actuation See Rx Instructions .Route 03/12/25 05/23/25 Rx aerosol inhaler .COMPLEX #18 grams semaglutide 2 mg/dose (8 mg/3 mL) See Rx Instructions .Route 03/20/25 05/23/25 Rx subcutaneous pen injector (Ozempic) .COMPLEX #3 mL sucralfate 1 gram tablet See Rx Instructions .Route 03/27/25 05/23/25 Rx .COMPLEX #112 tabs carvedilol 25 mg tablet See Rx Instructions .Route 04/12/25 05/23/25 Rx .COMPLEX #60 tabs alendronate 10 mg tablet See Rx Instructions .Route 04/23/25 05/23/25 Rx .COMPLEX #90 tabs bupropion HCl 200 mg tablet,12 hr See Rx Instructions .Route 04/23/25 05/23/25 Rx sustained-release .COMPLEX #180 tabs sodium,potassium,mag sulfates 17.5 See Rx Instructions PO .COMPLEX 05/10/25 05/23/25 Rx gram-3.13 gram-1.6 gram oral soln #354 mL (Suprep Bowel Prep Kit) hydrocodone 10 mg-acetaminophen 1 tab PO Q4H PRN pain #120 tabs 05/15/25 05/23/25 Rx 325 mg tablet lidocaine 5 % topical patch 1 patch topical DAILY Pain #30 ea 05/15/25 05/23/25 Rx New Prescriptions to Start Prescriptions: Allergies Allergy/AdvReac Type Severity Reaction Status Date / Time Penicillins (PENICILLINS) Allergy Unknown Hives Verified 05/23/25 07:52 phenobarbital (PHENOBARBITAL) Allergy Unknown Hives Verified 05/23/25 07:52 Sulfa (Sulfonamide Allergy Unknown Hives Verified 05/23/25 07:52 Antibiotics) (SULFA (SULFONAMIDE ANTIBIOTICS)) alprazolam (From Xanax) Allergy Confusion Verified 05/23/25 07:52 Barbiturates Allergy Confusion Verified 05/23/25 07:52 Benzodiazepines Allergy Anaphylaxis Verified 05/23/25 07:52 Exam *Routine HEENT Exam Head: Present normocephalic Eye: Present EOMI and PERRL ENT: Present mucous membranes moist *Routine Neck Exam Neck: Present supple *Routine Respiratory Exam Respiratory: Present CTA bilaterally *Routine Cardiovascular Exam Cardiovascular: Present RRR *Routine Abdominal Exam Abdominal: Present soft and normoactive bowel sounds; Absent tenderness *Routine Rectal Exam Rectal:: deferred *Routine Genitalia Exam Genitalia:: deferred *Routine Extremities Exam Extremities: Absent cyanosis, clubbing or edema *Routine Skin Exam Skin: Present warm; Absent rash *Routine Neurological Exam Neurological: Present alert and oriented X3 Assessment and Plan *Assessment and plan (1) Personal history of adenomatous and serrated colon polyps: Status: Acute Category: Medical Code(s): Z86.0101 - Personal history of adenomatous and serrated colon polyps (2) Screening for colon cancer: Status: Acute Category: Medical Code(s): Z12.11 - Encounter for screening for malignant neoplasm of colon Plan A/P: 1. Personal history of adenomatous colon polyps is the preprocedural diagnosis. The patient will be anesthetized/sedated using MAC sedation. The patient has been seen and examined. Cardiac and lung assessment prior to the examination is stable. Proceed with planned screening colonoscopy.
--- NOTE | 2025-05-23 07:11 | P.PCN_ITS ---
[facility] Procedure Note Date: 05/23/25 Time: 09:03 Procedure Note:: Colonoscopy Procedure Report: Colonoscopy with cold snare polypectomy Endoscopist: Anuel Steiner II, MD Referring physician: Yoshi Pruitt DO Date of Procedure: May 23, 2025 Equipment: Olympus [id number] adult colonoscope Sedation: MAC sedation Indication: Mrs. Suresh is a 64-year-old female who is here for follow-up screening/surveillance colonoscopy. The patient did have a colonoscopy in May 2019 (uJan M Gonzalez M.D.) and had a sessile serrated adenoma of the ileocecal valve and other adenomatous polyps. He repeated colonoscopy again in June 2020 and had 4 polyps (tubular adenomas x 2/small serrated adenoma x 1/hyperplastic polyp x 1) which were removed. The patient does report chronic constipation and will not have a bowel movement for 4 to 5 days. She does get some bloating and lower abdominal pain and discomfort. She reports no rectal bleeding, weight loss or family history of colon cancer. The examination is deemed medically necessary for screening/surveillance colonoscopy. Procedure: Prior to the procedure, a history and physical exam was performed, and patient's medications and allergies were reviewed. The risks, benefits and alternatives of the sedation and procedure were discussed with the patient. All questions were answered and informed consent was obtained. The patient was brought to the procedure room. Patient identification and proposed procedure were verified by the physician and the nurse. The patient was placed in a left lateral decubitus position and the scope was passed under direct vision. Throughout the procedure, the patient's blood pressure, pulse, and oxygen saturations were monitored continuously. The colonoscopy was accomplished without difficulty. The patient tolerated the procedure well. Findings: On digital rectal examination there was normal rectal tone. There were no external hemorrhoids. The colonoscope was introduced through the anal canal to the rectum and advanced to the cecum. The ileocecal valve and appendiceal orifice were identified. The scope was advanced a short distance into the ileum which appeared grossly normal. The scope was then withdrawn into the colon. The cecum, ascending and transverse colon and mucosa were grossly normal. There were 3 diminutive polyps (transverse x 2 (3 and 4 mm) and descending x 1 (4 mm)). These were all removed via cold snare polypectomy. There were extensively scattered diverticuli throughout the descending and sigmoid colon (LEFT colon). The rectum itself was normal. Upon retroflexion within the rectum there were grade 1-2 internal hemorrhoids. The preparation was excellent throughout with [place] Preparation Score of 9. The cecal time was 12 minutes. Impression: 1. Diminutive colonic polyps x 3 2. Extensive left-sided diverticulosis 3. Grade 1-2 internal hemorrhoids Plan: I will follow-up the polyp histology and recommend repeat screening/surveillance colonoscopy again in 5 years. I would recommend a fiber bowel regimen (combined MiraLAX plus Citrucel mixed together in 8 to 10 ounces of juice or water) on a regular and daily basis.
[2025-05-23 07:45] VITALS: BP 116/71; PULSE 73; RESP 16; TEMP 36.1; O2SAT 96; BMI 32.3
[2025-05-23] MEDS: LACTATED RINGERS 1000ML 1,000 ML 50 ML IV (07:55)
--- NOTE | 2025-05-23 08:14 | EXP.ANES.CKL ---
[facility] Disclaimer: The information contained in this section may have been updated after the patient was seen, as this information can be updated by other users. Medical History Hyperkalemia Diabetes mellitus, type 2 Stopped smoking between 1 and 5 years ago Restrictive lung disease Dyspnea on exertion ILD (interstitial lung disease) Right knee injury GERD (gastroesophageal reflux disease) Anxiety Overdose Hyperlipidemia Depression Hypertension COPD (chronic obstructive pulmonary disease) Vitamin D deficiency (~09/28/17) Surgical History History of rhizotomy S/P kyphoplasty History of left knee replacement History of back surgery History of arthroplasty of right knee History of arthroplasty of left knee History of colonoscopy H/O lumpectomy H/O breast biopsy H/O arthroscopy of left knee History of foot surgery Family History Other No significant family history Social History (Updated 05/23/25 @ 07:46 by Suad Hicks RN) Smoking Status: Never smoker second hand exposure: No alcohol intake: never substance use type: denies use current occupational status: retired and disabled Travel in the last 8 weeks?: None housing: house current occupational exposures/hazards: No caffeine: Yes Have you lived/traveled outside [place] in past 30 days?: No Contact w/someone who lives/traveled outside [place] past 30 days?: No Exposure to someone with infectious disease in past 14 days?: No Do you have a fever (greater than 100.4 F or 38 C)?: No Have you tested positive for COVID-19?: No Exposed to someone with COVID-19 in past 14 days?: No Do you have a sore throat?: No Do you have a cough?: No Do you have any weakness?: No Are you experiencing any nausea/vomitting?: No Do you have any diarrhea?: No Are you experiencing any unusual bleeding?: No Do you have any muscle aches/pain?: No Do you have any abdominal pain?: No Are you experiencing loss of taste or smell?: No [facility] Anesthesia Checklist Patient Identification Patient Identification: Arm Band Structural Data Admitted From: Home Planned Operative Procedure/s: Colonoscopy Consent for Planned Operative Procedure(s) Verified: Yes Verified Documents: Surgical Consent and History and Physical NPO Status Verified Time NPO: 05:30 (finished prep) Additional verifications Anesthesia Reactions: No Hx Blood Transfusions: No Blood Transfusion Reaction: No Airway Assessment Mallampati Score:: Class II C-Spine Mobility Assessed: Yes TMJ Mobility Assessed: Yes Dentition: Good Dentition Neurological Assessment Level of Consciousness: Awake, Alert and Appropriate Anesthesia Plan Anesthesia Risk discussed: Yes Anesthesia Plan: Verified ASA Class: III Anesthesia Type: MAC
[2025-05-23 09:04] VITALS: BP 106/45; PULSE 66; RESP 18; TEMP 36.4; O2SAT 97
[2025-05-23 09:14] VITALS: BP 111/57; PULSE 68; RESP 18; O2SAT 98
[2025-05-23 09:24] VITALS: BP 124/62; PULSE 64; RESP 18; O2SAT 97
[2025-05-23 09:34] VITALS: BP 128/64; PULSE 69; RESP 18; O2SAT 99
[2025-05-24 02:34] LABS: POC Glucose,Bedside 85 gm/dL (70-110)
== END 2025-05-23 09:38 | disposition home or self-care (01) ==
PROVIDERS: PCP Internal Medicine; Visit Provider Internal Medicine Gastroenterology
PROC: 0DJD8ZZ Inspection of Lower Intestinal Tract, Via Natural or Artificial Opening Endoscopic (ICD-10-PCS; CPT 45378; principal; 2025-05-23 09:00)
DX: Z12.11 Encounter for screening for malignant neoplasm of colon (principal); D12.4 Benign neoplasm of descending colon; D12.3 Benign neoplasm of transverse colon; K57.30 Diverticulosis of large intestine without perforation or abscess without bleeding; K64.0 First degree hemorrhoids; K64.1 Second degree hemorrhoids; E78.5 Hyperlipidemia, unspecified; I10 Essential (primary) hypertension; J44.9 Chronic obstructive pulmonary disease, unspecified; K21.9 Gastro-esophageal reflux disease without esophagitis; E11.9 Type 2 diabetes mellitus without complications; Z79.85 Long-term (current) use of injectable non-insulin antidiabetic drugs; F41.9 Anxiety disorder, unspecified; Z88.0 Allergy status to penicillin; Z88.2 Allergy status to sulfonamides; Z86.0101 Personal history of adenomatous and serrated colon polyps; Z88.8 Allergy status to other drugs, medicaments and biological substances
CPT/HCPCS: 45385; 82962; 88305; J2003; J2704; J7120